=== PATIENT | male | born 1940 | race Caucasian/White ===

== ENCOUNTER 2016-05-05 14:18 | Inpatient (IN) | payer OTHER, MEDICARE ==
[~2016-05-05] VITALS: Ht 172.7 cm; Wt 99.8 kg
[~2016-05-05 14:18] MED LIST: FLOMAX(MONOGRA0.4 MG PO; PERCOCET 325 MG1 TA2 PO
--- NOTE | 2016-05-05 14:24 | NUR ---
PT TO ED C/O RIGHT ABD PAIN/RIGHT FLANK PAIN SINCE YESTERDAY. CALLED DR OLIVO AND WAS ADVISED TO COME TO ED. H/O KIDNEY STONES, PT STATES THIS FEELS THE SAME. 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 DENIES N/V/D. C/O HESITANCY WITH URINATING. FINISHED ABX FOR A UTI A FEW DAYS AGO.
--- NOTE | 2016-05-05 14:26 | NUR ---
PT WAS DRINKING ICED TEA, ADVISED TO REMAIN NPO AT THIS TIME.
--- NOTE | 2016-05-05 14:34 | ED GI/GU/ABDOMINAL COMPLAINT ---
History of Present Illness General Chief Complaint: Abdominal Pain/Flank Pain Stated Complaint: FLANK PAIN Source: patient Exam Limitations: no limitations Allergies Coded Allergies: No Known Allergies (05/24/15) Reconcile Medications Aspirin (Ecotrin*) 81 MG TABLET.DR 1 TAB PO DAILY HEART HEALTH (Reported) Atorvastatin Calcium 20 MG TABLET 0.5 TAB PO DAILY CHOLESTEROL (Reported) Esomeprazole Magnesium (Nexium) 20 MG CAPSULE.DR 1 CAP PO DAILY GI (Reported) Flaxseed Oil (Flax Oil) 1,000 MG CAPSULE 1 CAP PO DAILY SUPPLEMENT (Reported) Glimepiride 4 MG TABLET 1 TAB PO DAILY DM (Reported) Irbesartan 150 MG TABLET 0.5 TAB PO DAILY HEART (Reported) Metformin HCl 1,000 MG TABLET 1 TAB PO BID DM (Reported) Multivitamin (Daily Multiple Vitamin) 1 EACH TABLET 1 TAB PO DAILY SUPPLEMENT (Reported) [place]-3 Fatty Acids/Fish Oil (Fish Oil 1,000 MG Capsule) 340 MG-1,000 MG CAPSULE 1 CAP PO DAILY SUPPLEMENT (Reported) Triage Note: PT TO ED C/O RIGHT ABD PAIN/RIGHT FLANK PAIN SINCE YESTERDAY. CALLED DR OLIVO AND WAS ADVISED TO COME TO ED. H/O KIDNEY STONES, PT STATES THIS FEELS THE SAME. 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 DENIES N/V/D. C/O HESITANCY WITH URINATING. FINISHED ABX FOR A UTI A FEW DAYS AGO. Triage Nurses Notes Reviewed? yes HPI: This patient is a 75-year-old male with past medical history including diabetes, dyslipidemia, and hypertension who presented to the emergency department today for evaluation of left-sided abdominal pain. The patient reported that his pain began a couple days ago and gets up to an 8 or 9 out of 10. The pain is sharp and throbbing. The pain is nonradiating. No flank pain or groin pain. The patient finished a course of Macrobid a couple days ago for urinary tract infection. He was originally having burning with urination. He reported that he does still have intermittent burning with urination and urinary pressure, but reported that he feels like he has not been voiding as much as normal. The patient reported that he does not currently have any abdominal pain. He reported that this morning he was feeling nauseous, but did not vomit. The patient reported that he took Tums at that time which relieved his symptoms. The patient reported that he feels his heart is racing and he occasionally feels palpitations. He reported that he has always had occasional palpitations and recently had a stress test which was unremarkable. The patient denied any chest pain or difficulty breathing. He denied any numbness or tingling in his extremities, fevers, chills, visual changes, jaw pain, arm pain, urinary urgency , frequency, blood in the urine. The patient reported that he does have chronic lower back pain. He has never had any abdominal surgeries before. (JEANMARIE EVANS PA-C) Vital Signs & Intake/Output Vital Signs & Intake/Output Vital Signs Date Time Temp Pulse Resp B/P Pulse O2 O2 Flow FiO2 Ox Delivery Rate 05/07 0703 98.9 95 20 122/64 95 Room Air 05/06 2208 99.1 82 20 122/60 95 Room Air 05/06 1433 98.0 85 20 110/60 97 ED Intake and Output 05/07 0000 05/06 1200 Intake Total 920 540 Output Total 2049 Balance -1130 540 Intake, IV 340 Intake, Oral 920 200 Number 2 0 Bowel Movements Output, Urine 2049 Past History Travel History Traveled to [place] past 21 day No Medical History Any Pertinent Medical History? see below for history Neurological: NONE EENT: NONE Cardiovascular: hypertension, hyperlipidemia Respiratory: NONE Gastrointestinal: GERD Hepatic: NONE Renal: NONE Musculoskeletal: NONE Psychiatric: NONE Endocrine: diabetes Surgical History Surgical History: N Psychosocial History What is your primary language Kazakh Tobacco Use: Quit >30 days ago ETOH Use: denies use Illicit Drug Use: denies illicit drug use Family History Hx Contributory? No (JEANMARIE EVANS PA-C) Review of Systems Review of Systems Constitutional: Reports: no symptoms. EENTM: Reports: no symptoms. Respiratory: Reports: no symptoms. Cardiovascular: Reports: see HPI. GI: Reports: see HPI. Genitourinary: Reports: see HPI. Musculoskeletal: Reports: no symptoms. Skin: Reports: no symptoms. Neurological/Psychological: Reports: no symptoms. All Other Systems: Reviewed and Negative (JEANMARIE EVANS PA-C) Physical Exam Physical Exam Gastrointestinal: normal bowel sounds, soft, no organomegaly, tenderness to palpation in the left lower quadrant with no rebound or guarding. Nondistended. No McBurney's point tenderness. Negative Rovsing sign. Negative psoas sign. Negative Ascencio sign. No masses appreciated. Comments: Well-developed well-nourished person in no acute distress HEENT: Normal EENT exam, head normocephalic, moist mucous membranes Pupils equally round and reactive to light. Neck: Supple, no lymphadenopathy Back: Normal gait. Normal inspection. No CVA tenderness. No midline tenderness Cardiovascular: Regular rate and rhythm with no murmurs, rubs, or gallops. No JVD or carotid bruits Respiratory: Chest nontender. No respiratory distress. Breath sounds clear to auscultation bilaterally with no wheezes, rales, or rhonchi Extremity: Normal and equal pulses Neuro: Alert oriented x3, cranial nerves II through XII grossly intact. Skin: No appreciable rash on exposed skin, skin is warm and dry. Psych: Mood and affect is normal Core Measures ACS in differential dx? No Severe Sepsis Present: No Septic Shock Present: No (JEANMARIE EVANS PA-C) Progress Differential Diagnosis: AAA, AMI, appendicitis, biliary colic, bowel obstruction , colon cancer, cholecystitis, diverticulitis, gastritis, hepatitis, ischemic bowel, inflamm bowel dis, pancreatitis, prostatitis, peptic ulcer, PUD/GERD, perforated viscous, pyelonephritis, SBO, ureterolithiasis, urinary retention, urethritis, UTI/pyelo Initial ED EKG: normal axis, normal intervals, no ST T wave changes, sinus tachycardia, first-degree AV block, 109 bpm Comments: 05/05/2016 5:41:57 PM: Dr. Boone was at the patient's bedside a [id number] evaluation. This patient does have an obstructing left-sided kidney stone. We will page on-call urology. This patient was started on IV Rocephin for shaking chills and white blood cell count of 21.0 (JEANMARIE EVANS PA-C) Plan of Care: Orders Procedure Date/time Status CBC WITHOUT DIFFERENTIAL 05/07 599 Active BASIC ELECTROLYTES PLUS BUN&CR 05/07 06 Complete Anticipated Discharge 05/06 UNK Active Nursing Misc 05/06 UNK Active [id number] VIEW 05/05 UNK Active Current Medications Sig/Harini Start time Last Medication Dose Stop Time Status Admin Heparin Sodium 5,000 UNIT Q8 05/06 1440 AC (Porcine) Acetaminophen 650 MG Q6P PRN 05/05 2014 AC (Tylenol) Laboratory Tests 05/07/16 0655: Anion Gap 12, Estimated GFR 54 L, BUN/Creatinine Ratio 20.8, CBC w Diff Pending , WBC Pending, RBC Pending, Hgb Pending, Hct Pending, MCV Pending, MCH Pending, RDW Pending, Plt Count Pending, MPV Pending, PUBS MCHC Pending Departure Departure Disposition: STILL A PATIENT Condition: Stable Clinical Impression Primary Impression: Ureterolithiasis Secondary Impressions: Leukocytosis Qualifiers: Leukocytosis type: unspecified Qualified Code: D72.829 - Elevated white blood cell count, unspecified Referrals: CHELI WOODWARD MD (PCP/Family) Departure Forms: Customer Survey General Discharge Information Admission Note Spoke With: CATHY MENDOZA MD Documentation of Exam: Documentation of any treatments & extenuating circumstances including Concerns Regarding Discharge (functional status, medication knowledge or non-compliance, living conditions, etc.) that warrant an admission rather than observation: [ This patient is a 75-year-old male who presented to the emergency department today for evaluation of left abdominal pain. 0.5 cm ureterolithiasis with hydronephrosis. White blood cell count of 21.0. Positive esterase and nitrates with greater than 75 white blood cells on urinalysis. This patient will need a ureteral stent placed. Should be admitted for IV antibiotics, trend labs, follow-up blood cultures, follow-up urine cultures, and close monitoring.] (CRISTINA CORREA,JEANMARIE) PA/RN NEUROSURGICAL Co-Sign Statement Statement: ED Attending supervision documentation- [x] I saw and evaluated the patient. I have also reviewed all the pertinent lab results and diagnostic results. I agree with the findings and the plan of care as documented in the PA's/RN NEUROSURGICAL's documentation. [] I have reviewed the ED Record and agree with the PA's/RN NEUROSURGICAL's documentation. [] Additions or exceptions (if any) to the PAs/RN NEUROSURGICAL's note and plan are summarized below: [] (NEL VALLES,VITO Jones) [] I have reviewed the ED Record and agree with the PA's/RN NEUROSURGICAL's documentation. [] Additions or exceptions (if any) to the PAs/RN NEUROSURGICAL's note and plan are summarized below: [] (VITO BOONE MD)
--- NOTE | 2016-05-05 14:50 | NUR ---
CLAUDINE Gonzalez AT BEDSIDE
[2016-05-05] MEDS ORDERED: GLIMEPIRIDE4 M1 PO (15:16)
[2016-05-05] MEDS ORDERED: METFORMIN HCL1000 M1 PO (15:16)
[2016-05-05] MEDS ORDERED: IRBESARTAN150 M1 PO (15:16)
[2016-05-05] MEDS ORDERED: ATORVASTATIN CA20 M1 PO (15:16)
[2016-05-05] MEDS ORDERED: ASPIRIN EC81 M1 PO (15:17)
[2016-05-05] MEDS ORDERED: NEXIUM20 M1 PO (15:17)
[2016-05-05] MEDS ORDERED: DAILY MULTIPLE1 EACH PO (15:17)
--- NOTE | 2016-05-05 15:17 | NUR ---
PT BLOOD DRAWN AND SENT TO LAB GOLD LAV BLUE CHAVEZ PINK TUBES COLLECTED
[2016-05-05] MEDS ORDERED: FLAX OIL1000 M1 PO (15:18)
[2016-05-05] MEDS ORDERED: FISH OIL 1,0001 EACH PO (15:18)
[2016-05-05 15:36] LABS: ABSOLUTE BASOPHIL COUNT 0 /CUMM (0.0-0.2); ABSOLUTE EOSINOPHIL COUNT 0 /CUMM (0.0-0.7); ABSOLUTE GRANULOCYTE CT 19.7 /CUMM (1.4-6.5); ABSOLUTE LYMPH COUNT 0.6 /CUMM (1.2-3.4); ABSOLUTE MONOCYTE COUNT 0.7 /CUMM (0.10-0.60); BASOPHIL % 0 % (0.0-2.0); EOSINOPHIL % 0 % (0-5); GRANULOCYTE % 93.8 % (42.2-75.2); HEMATOCRIT 40.7 % (42-52); MEAN CORPUSCULAR HGB 26.5 PG (27.0-31.0); MEAN CORPUSCULAR HGB CONC 33.5 G/DL (33.0-37.0); MEAN CORPUSCULAR VOLUME 79.2 FL (80.0-94.0); MEAN PLATELET VOLUME 7.7 FL (7.4-10.4); PLATELET COUNT 296 /CUMM (130-400); RED BLOOD CELL CT 5.14 /CUMM (4.70-6.10)
--- NOTE | 2016-05-05 16:00 | NUR ---
URINE OBTAINED AND SENT. DARK YELLOW CLOUDY OUTPUT
--- NOTE | 2016-05-05 17:37 | CT SCAN REPORT ---
EXAMINATION: CT ANGIOGRAM OF THE CHEST WITH AND WITHOUT CONTRAST (CT PULMONARY ANGIOGRAM FOR PE) CT ABDOMEN AND PELVIS WITH CONTRAST CLINICAL INFORMATION: Tachycardia. Palpitations. Left lower quadrant and left upper quadrant pain. COMPARISON: Abdominal CT 05/24/2015. TECHNIQUE: Prior to contrast administration, noncontrast localization images were obtained. Subsequently, multidetector volumetric imaging was performed from the thoracic inlet to below the diaphragm following the administration of 95 mL Optiray 350 intravenous contrast. Subsequent acquisition of the abdomen and pelvis was then performed. No contrast reaction reported Sagittal, coronal, and MIP oblique sagittal reformatted images were obtained on the CT workstation, uploaded to PACS, and reviewed. Total exam dose-length product 1720 mGy-cm FINDINGS: QUALITY OF STUDY/CONTRAST BOLUS: Satisfactory. PULMONARY ARTERIES: No central or segmental pulmonary emboli. THORACIC AORTA: No aneurysm or dissection. LUNG: The central airways are patent. Minimal dependent atelectasis bilaterally. No dense consolidation. PLEURA: No pleural effusion or pneumothorax. MEDIASTINUM: The heart is normal in size. No pericardial effusion. Coronary artery calcifications noted. No mediastinal lymphadenopathy. No evidence of septal bowing or right heart strain. CHEST WALL/AXILLA: No axillary or internal mammary lymphadenopathy. LIVER, GALLBLADDER, AND BILIARY TREE: The liver is normal in size, shape, and attenuation. No focal hepatic lesion or biliary ductal dilatation is present. The gallbladder is unremarkable with no evidence of radiopaque gallstones, gallbladder wall thickening, or obvious pericholecystic inflammatory changes. PANCREAS: Unremarkable. SPLEEN: Unremarkable. ADRENAL GLANDS: Unremarkable. KIDNEYS AND URETERS: The kidneys are normal in size, shape, and attenuation. There is mild left hydroureteronephrosis. There is a 0.5 cm mid ureteral obstructing calculus, at the level of L5. There is prominent left perinephric stranding. Evaluation for additional calculi is limited, as the abdominal acquisition was delayed and the patient is excreting contrast. There is delayed excretion on the left, suggesting multiple additional calculi are present throughout the left kidney. Excretion is uniform on the right with partial filling of the ureter with contrast. There is a cluster of calculi at the lower pole of the left kidney measuring up to 0.4 cm. These are positioned 14 cm from the posterior axillary line. Additional smaller calculi are seen at the mid and upper poles. BLADDER: Mild circumferential wall thickening with no focal abnormality. GASTROINTESTINAL TRACT: The stomach and small bowel are unremarkable. No dilated loops of bowel or evidence of obstruction. There is colonic diverticulosis without diverticulitis. No wall thickening or inflammatory changes. No free air or free fluid. ABDOMINAL WALL: No significant hernia is appreciated. LYMPH NODES: Normal. VASCULAR: Mild atherosclerotic calcifications. PELVIC VISCERA: Enlarged prostate resulting in mass effect upon the bladder. The prostate measures 6 cm transverse. The seminal vesicles are unremarkable. OSSEOUS STRUCTURES: No acute or suspicious osseous abnormality. Multilevel degenerative changes throughout the spine with multilevel vacuum disc phenomenon. IMPRESSION: 1. Mild left hydroureteronephrosis with a 0.5 cm mid ureteral obstructing calculus. Additional left renal calculi noted. Limited evaluation for right renal calculi due to contrast excretion. 2. No pulmonary embolism or other acute intrathoracic abnormality. 3. Diverticulosis. 4. Prostatomegaly with circumferential bladder wall thickening suggestive of partial outlet obstruction. VTE: negative
--- NOTE | 2016-05-05 17:54 | NUR ---
PT RETURNED FROM CT. NOW HAS RIGORS. TEMP 100.8. DR. NEUMANN AND CLAUDINE MURRY AT BEDSIDE TO DISCUSS RESULTS AND POC. IV TYLENOL AND 2ND NS BOLUS INFUSING. FAMILY AT BEDSIDE FOR SUPPORT
--- NOTE | 2016-05-05 18:09 | NUR ---
RUPESH SETS BLOOD CULTURES COLLECTED AND SENT
--- NOTE | 2016-05-05 18:14 | NUR ---
CLEAR LIQUID DIET ORDERED
--- NOTE | 2016-05-05 19:27 | NUR ---
PT TO ROOM 229 BED 1
--- NOTE | 2016-05-05 19:58 | History & Physical ---
ROD VALLES,SON 05/05/161956: General Information and HPI MD Statement: I have seen and personally examined DAYA JOHNSON and documented this H&P. The patient is a 75 year old M who presented with a patient stated chief complaint of left abdominal pain. Source of Information: patient Exam Limitations: no limitations History of Present Illness: This is a 75-year-old very pleasant gentleman with a past medical history of diabetes, hyperlipidemia, hypertension, nephrolithiasis presents to [place] ED with complaints of left-sided abdominal pain. Patient reports onset of the pain to be about 2 days ago and has progressively worsened. Patient describes the pain as sharp and intermittently throbbing, rating it at 10 out of 10 when it's worse. Patient states that the pain is nonradiating. Pt endorses some pain relief with use of oxycodone. Associated symptoms include fever and chills, nausea, dysuria, decrease urinary frequency. He denies any hematuria or vomiting. Of note, patient was diagnosed with an UTI about 10 days ago and just completed a seven-day macrobid course 3 days ago. Patient also reports a previous history of right-sided abdominal pain which was related to nephrolithiasis and was scheduled for possible stent placement, however a follow-up pelvis scan showed that the stone was no longer there and had been passed. Pt denies any chest pain, palpitation, shortness of breath, or dizziness. Allergies/Medications Allergies: Coded Allergies: No Known Allergies (05/24/15) Home Med list Aspirin (Ecotrin*) 81 MG TABLET.DR 1 TAB PO DAILY HEART HEALTH (Reported) Atorvastatin Calcium 20 MG TABLET 0.5 TAB PO DAILY CHOLESTEROL (Reported) Esomeprazole Magnesium (Nexium) 20 MG CAPSULE.DR 1 CAP PO DAILY GI (Reported) Flaxseed Oil (Flax Oil) 1,000 MG CAPSULE 1 CAP PO DAILY SUPPLEMENT (Reported) Glimepiride 4 MG TABLET 1 TAB PO DAILY DM (Reported) Irbesartan 150 MG TABLET 0.5 TAB PO DAILY HEART (Reported) Metformin HCl 1,000 MG TABLET 1 TAB PO BID DM (Reported) Multivitamin (Daily Multiple Vitamin) 1 EACH TABLET 1 TAB PO DAILY SUPPLEMENT (Reported) [place]-3 Fatty Acids/Fish Oil (Fish Oil 1,000 MG Capsule) 340 MG-1,000 MG CAPSULE 1 CAP PO DAILY SUPPLEMENT (Reported) Past History Travel History Traveled to [place] past 21 day No Medical History Neurological: NONE EENT: NONE Cardiovascular: hypertension, hyperlipidemia Respiratory: NONE Gastrointestinal: GERD Hepatic: NONE Renal: NONE Musculoskeletal: NONE Psychiatric: NONE Endocrine: diabetes Surgical History Surgical History: N Past Family/Social History Psychosocial History ETOH Use: denies use Illicit Drug Use: denies illicit drug use Review of Systems Review of Systems Constitutional: Reports: see HPI. Exam & Diagnostic Data Last 24 Hrs of Vital Signs/I&O Vital Signs Date Time Temp Pulse Resp B/P Pulse O2 O2 Flow FiO2 Ox Delivery Rate 05/06 0353 98.5 85 20 132/68 98 Room Air 05/06 0100 97.8 74 18 118/60 97 Room Air 03/ 2136 98.7 109 20 110/60 93 Room Air / 2033 97.7 / 2026 97.7 103 18 101/55 95 Room Air / 1909 100.7 118 16 112/60 97 Room Air / 1751 100.8 / 1734 100.8 / 1633 97.6 93 18 131/64 95 Room Air 03/02 1530 Room Air 03/02 1421 97.2 118 20 153/73 96 Room Air Intake & Output 05/06 0800 03/ 0000 03/02 1600 Intake Total 540 2050 Output Total 750 Balance 540 1300 Intake, IV 340 2050 Intake, Oral 200 Number 0 Bowel Movements Output, Urine 750 Patient 99.79 kg 99.79 kg Weight Physical Exam General Appearance Alert, Oriented X3, Cooperative, No Acute Distress Skin No Significant Lesion HEENT Mucous Membr. moist/pink, left sclera conjuctivitis Neck Supple, No JVD, No thryomegaly, +2 Carotid Pulse wo Bruit Lymphatic Cervical nl Cardiovascular Regular Rate, Normal S1, Normal S2, No Murmurs Lungs Clear to Auscultation, Normal Air Movement Abdomen Normal Bowel Sounds, Soft, on deep palpation of the left abdominal flank area. No rebound or guarding noted. No CVA noted. Neurological Normal Speech, Normal Tone Assessment/Plan Assessment: Assessment and plan This is a 75-year-old gentleman with a previous history of nephrolithiasis, and a recent UTI treated with seven-day course of Macrobid, presents with for evaluation of left lower abdominal pain. Vital signs at admission are remarkable for fever, tachycardia and tachypnea. His physical examination was unremarkable for any abdominal pain or CVA tenderness, however it is noted that patient had received IV Tylenol and pain medication prior to our examination. Patient's labs were remarkable for leukocytosis, and UA was suggestive of a UTI. CT abdomen and pelvis showed left hydroureteronephrosis with a 5 mm mild ureteral obstructing calculus. Patient is being admitted for surgical management with a possible stent placement and medical management of his UTI with IV antibiotics. Assessment and plan #Sepsis of urological origin Patient meets sepsis criteria with elevated temperature of 100.8, tachycardia with a heart rate of 118, leukocytosis, and a urinalysis suggestive of a UTI. She had just recently completed an antibiotic seven-day course with Macrobid. Most likely treatment failure with antibiotic patient is presenting in a septic condition. Plan Admit to general medicine floor Will start ceftriaxone 1 g IV IV fluids Will follow-up with blood culture Will follow-up with urine cultures #Left lower abdominal pain This is in the setting of recent UTI and radiological finding of a 5 mm ureteral obstructing kidney stone. Plan IV hydration Continue pain management #Nephrolithiasis 5 mm calculus with hydroureteronephrosis noted at the left ureteral area with additional left renal calculi noted. As patient is symptomatic with left abdominal pain and is presenting in a septic condition, he warrants stone removal and possible stent placement. Plan Will keep patient nothing by mouth for now in anticipation of cystoscope with stent placement Pain management #History of diabetes NovoLog sliding scale and Levemir #History of hypertension Continue Ibesartan daily #History of hyperlipidemia Continue atorvastatin As Ranked By This Provider Problem List: 1. Ureterolithiasis 2. Sepsis Core Measures/Miscellaneous Acute Coronary Syndrome ACS Diagnosis: No Cerebrovascular Accident CVA/TIA Diagnosis: No Congestive Heart Failure CHF Diagnosis: No Venous Thromboembolism VTE Risk Factors: Age > 40 No [facility] VTE prophylaxis d/t: No contraindications No VTE Pharm Prophylaxis d/t: No contraindications VTE Diagnosis: No VTE Type: NONE VTE Confirmed by (Test): NONE Severe Sepsis Severe Sepsis Present: No Septic Shock Septic Shock Present: No Miscellaneous Documentation Attending Case Discussed With: CATHY MENDOZA MD Primary Care Physician: CHELI WOODWARD MD Patient sees these Specialists urologist Level of Patient Care: General Medicine CINDY CANO 05/05/162033: Resident Review Statement Resident Statement: examined this patient, discussed with technical intern, agreed with technical intern Other Findings: Patient is a 75-year-old gentleman with a past medical history significant for type 2 diabetes, dyslipidemia, hypertension, history of right-sided nephrolithiasis presented to the ED for the evaluation of left-sided abdominal pain. Patient reported that the pain started a couple of days ago getting worse for the last 1-2 days. Pain was intermittent, sharp in character, 9/10 in severity, aggravated with movement and alleviated by taking oxycodone. Pain was associated with with nausea and fever and chills and lightheadedness. Patient recently completed a course of Macrobid for 7 days for urinary tract infection. He reported that as soon as he finished the antibiotics course he started having again burning micturition with urgency. Patient denied any chest discomfort or trouble breathing . He always had occasional palpitations, recently had a stress test done that was unremarkable. Denies any bowel habit complaints. No changes in his appetite. Vitals on admission temperature 100.8, pulse 118, blood pressure 131/64 respiratory rate 18, saturating more than 92% on room air. General Appearance: Alert and oriented 3 , not in acute distress. Skin: Grossly normal HEENT: PEERLA Neck: Supple, No JVD Cardiovascular: Regular Rate, Normal S1, Normal S2, No Murmurs Lungs: Decreased respirations in the left lower lung bases Abdomen: Normal Bowel Sounds, left lower quadrant tenderness without any rebound. Neurological: Normal Speech, Strength at 5/5 X4 Ext, Cranial Nerves 3-12 NL, Reflexes 2+ Extremities: No Clubbing, No Cyanosis, No Edema Vascular: Normal Pulses . Pertinent labs on admission Leukocytosis 21.0 with left shift 93.8. Leukocytosis, sodium 134, BUN/ creatinine elevated 40/1.5, Urinalysis positive for leukocyte esterase and nitrite. CT abdomen and pelvis revealed: Mild left hydroureteronephrosis with a 0.5 cm mid ureteral obstructing calculus. Additional left renal calculi noted. Limited evaluation for right renal calculi due to contrast excretion. CTA chest to rule out any underlying PE Assessment and plan This is [id number] gentleman with a past medical history significant for type 2 diabetes, dyslipidemia, hypertension, history of right-sided nephrolithiasis presented to the ED for the evaluation of left-sided abdominal pain, CT abdomen and pelvis were consistent with mild left-sided ureterohydronephrosis with obstructive lesion left renal calculi. FIFI on labs and urinalysis showed positive urinary tract infection. 1.left-sided ureterohydronephrosis with sepsis(Worsening left-sided lower quadrant abdominal pain with fever or chills ): * We will admit the patient to general medical floor, awaiting surgery. * Urine analysis positive for leukocyte esterase and nitrate. We'll start the patient on IV ceftriaxone after sending blood cultures and urine culture. * Continue with gentle hydration. * Trend lactic acid levels * Watch for any hemodynamic instability. * Patient will be evaluated by Dr. Carmichael overnight for possible stent placement. 2. Acute kidney injury: * Elevated BUN and creatinine * Continue with gentle hydration * And avoid any nephrotoxic agents * Repeat Bep. 3. History of hypertension and hyperlipidemia * Continue home medications. 4. History of type 2 diabetes mellitus * Patient is currently nothing by mouth. * Continue with NPH and sliding scale * D5 half normal saline * Hold metformin and glyburide 5. Moderate to severe pain controlled with Dilaudid 6. DVT prophylaxis Alps 7.Patient is full code CATHY MENDOZA 05/06/16 0302: Attending MD Review Statement Attending Statement Attending MD Statement: examined this patient, discuss w/resident/PA/[employer], agreed w/resident/PA/[employer] RE[employer], discussed with family, reviewed EMR data (avail), reviewed images, amended to note Attending Assessment/Plan: Cc : Left flank pain PMH: Recurrent nephrolithiasis, DM, HTN Patient had urinary tract symptoms 7 days back, was treated with [facility] urgent care center. Later on followed up with urologist, who was planning for some procedure. But patient's urinary infection symptoms persisted once antibiotic was over and he noticed sudden left sided flank pain coming to abdomen, associated with nausea, dizziness, palpitations, fever and chills. He was feeling not so good so he came to ER. Vitals: T max 100.8, tachycardic, RR, BP, O2 saturation within acceptable range. On examination: Anxious, no acute distress, a O 3, neck supple, no lymphadenopathy, no pharyngeal congestion, mucosa dry, no JVD. CVS: S1-S2, RRR. RS: Clear to auscultate bilaterally. Abdomen: Obese, soft, NT, tender only with deep palpation on the left side of her abdomen, ND, no CVA tenderness. Bowel sounds normal. No pedal edema, peripheral pulses perfusion normal. No focal neurological deficit. Labs: WBC 21.0, hemoglobin 13, granulocytes 93%, bands 12, bicarbonate 20, creatinine 1.4, glucose 243, calcium 10.9, amylase 198, lipase 664 CTA chest, abdomen and pelvis CT with IV contrast: 1. Mild left hydroureteronephrosis with a 0.5 cm mid ureteral obstructing calculus. Additional left renal calculi noted. Limited evaluation for right renal calculi due to contrast excretion. 2. No pulmonary embolism or other acute intrathoracic abnormality. 3. Diverticulosis. 4. Prostatomegaly with circumferential bladder wall thickening suggestive of partial outlet obstruction. A and P #1 sepsis secondary to UTI with obstructing stone in hydronephrosis on left side. Urology has been consulted in ER, get urine culture, blood culture, aggressive hydration, trend lactic acid, continue ceftriaxone, adequate pain control. #2 Patient has mildly elevated calcium, repeat in the morning. ? Benefit from stone analysis. Patient is taking calcium supplementation which she need to be stopped. #3 elevated creatinine: Baseline not known. Previous creatinine was 1.8 which was then he had his previous renal stone. Continue hydration for now, repeat BMP tomorrow. #4 hold ACEI/ARB, hold metformin, glimepiride. Continue sliding scale insulin. Continue hydration. #5 BPH : Currently patient not on any medications, and not having any symptoms related to BPH but CT shows partial outlet obstruction #6 DVT prophylaxis: Alps
--- NOTE | 2016-05-05 20:21 | NUR ---
REPORT GIVEN TO VIDAL JOHNSON
[2016-05-05 21:36] VITALS: BP 110/60
--- NOTE | 2016-05-05 23:58 | NUR ---
PT ARRIVED TO FLOOR AT [facility]. 2044. A&O X 3 WITH TO BEDSIDE. NS RUNNING PER EMAR. ALPS APPLIED. NO C/O PAIN. BED LOW, LOCKED, CALL NEUMANN WITHIN REACH. PT CALLED TO OR AND LEFT FLOOR AT [facility]. 2214. REPORT GIVEN TO COFFEE ATTENDANT NURSE.
--- NOTE | 2016-05-06 00:05 | Cons- Urology ---
General Information and HPI Consulting Request Date of Consult: 05/05/16 Requested By: CATHY Figueroa MD Reason for Consult: L ureteral stone with obstruction and infected urine Source of Information: patient, family Exam Limitations: no limitations History of Present Illness: This patient has a hx of urinary stones and has had a couple of UTI's in the past. He presented to the ER today with L flank and L side abd pain. A CT scan showed a 5 mm stone in the L ureter at the level of L5 with mild upstream hydronephrosis. His U/A was c/w infection and his wbc count was 21 thousand. In the ER he had a low grade fever and an episode of shaking chills. He was given 1 gram of ceftriaxone. Allergies/Medications Allergies: Coded Allergies: No Known Allergies (05/24/15) Home Med List: Aspirin (Ecotrin*) 81 MG TABLET.DR 1 TAB PO DAILY HEART HEALTH (Reported) Atorvastatin Calcium 20 MG TABLET 0.5 TAB PO DAILY CHOLESTEROL (Reported) Esomeprazole Magnesium (Nexium) 20 MG CAPSULE.DR 1 CAP PO DAILY GI (Reported) Flaxseed Oil (Flax Oil) 1,000 MG CAPSULE 1 CAP PO DAILY SUPPLEMENT (Reported) Glimepiride 4 MG TABLET 1 TAB PO DAILY DM (Reported) Irbesartan 150 MG TABLET 0.5 TAB PO DAILY HEART (Reported) Metformin HCl 1,000 MG TABLET 1 TAB PO BID DM (Reported) Multivitamin (Daily Multiple Vitamin) 1 EACH TABLET 1 TAB PO DAILY SUPPLEMENT (Reported) [place]-3 Fatty Acids/Fish Oil (Fish Oil 1,000 MG Capsule) 340 MG-1,000 MG CAPSULE 1 CAP PO DAILY SUPPLEMENT (Reported) Current Medications: Current Medications Sig/Harini Start time Last Medication Dose Route Stop Time Status Admin Acetaminophen 1,000 MG Q8P PRN 05/05 204 AC N/A 1 UNIT IV Acetaminophen 650 MG Q6P PRN 05/05 2014 AC PO Acetaminophen 0 .STK-MED ONE 05/05 174 DC IV Acetaminophen 1,000 MG ONCE ONE 05/05 1745 DC 05/05 N/A 1 UNIT IV 05/05 1759 1751 Aspirin Buffered 81 MG DAILY 05/06 1000 AC PO Atorvastatin Calcium 10 MG 1700 05/06 1700 AC PO Ceftriaxone Sodium 1,000 MG DAILY 05/06 1000 AC IV Ceftriaxone Sodium 0 .STK-MED ONE 05/05 1747 DC .ROUTE Ceftriaxone Sodium 1,000 MG ONCE ONE 05/05 1745 DC / IV 05/05 1746 1805 Dextrose/Sodium 1,000 ML Q13H 05/05 2345 UNVr Chloride IV Hydromorphone HCl 0.5 MG Q4P PRN 05/05 2014 AC IV Insulin Human Regular 0 Q6 05/05 2359 AC SC Ketorolac 30 MG ONCE ONE 05/05 1615 DC 05/05 Tromethamine IV 05/05 1616 1607 Ketorolac 0 .STK-MED ONE 05/05 1607 DC Tromethamine .ROUTE Losartan Potassium 50 MG DAILY 05/06 1000 AC PO Morphine Sulfate 2 MG ONCE ONE 05/05 1845 DC IV 05/05 1846 Multivitamins 1 TAB DAILY 05/06 1000 AC Therapeutic PO Omeprazole 40 MG DAILY AC 05/06 0700 AC PO Oxycodone/ 1 TAB Q6 PRN 05/05 2014 DC Acetaminophen PO Sodium Chloride 1,000 ML Q20H / 2045 DC 05/05 IV 2113 Sodium Chloride 1,500 ML .Q3H 05/05 1930 DC 03/ IV 03/ 2229 2000 Sodium Chloride 1,000 ML BOLUS ONE 05/05 1745 DC 03/ IV / 1844 1751 Sodium Chloride 1,000 ML BOLUS ONE 05/05 1500 DC 03/ IV 03/ 1559 1530 Past History Medical History Neurological: NONE EENT: NONE Cardiovascular: hypertension, hyperlipidemia Respiratory: NONE Gastrointestinal: GERD Hepatic: NONE Renal: NONE Musculoskeletal: NONE Psychiatric: NONE Endocrine: diabetes Surgical History Pertinent Surgical History: none Psychosocial History Where Do You Live? Home Smoking Status: Former Smoker ETOH Use: denies use Illicit Drug Use: denies illicit drug use Exam & Diagnostic Data Vital Signs and I&O Vital Signs Date Time Temp Pulse Resp B/P Pulse O2 O2 Flow FiO2 Ox Delivery Rate 05/06 2135 98.7 109 20 110/60 93 Room Air 05/05 2032 97.7 05/05 2025 97.7 103 18 101/55 95 Room Air 05/05 1909 100.7 118 16 112/60 97 Room Air 05/05 1751 100.8 05/05 1734 100.8 05/05 1633 97.6 93 18 131/64 95 Room Air 05/05 1530 Room Air 05/05 1421 97.2 118 20 153/73 96 Room Air Intake & Output 05/06 0800 05/06 0000 05/05 1600 05/05 0800 05/05 0000 05/04 1600 Intake Total 2000 Output Total 550 Balance 1450 Intake, IV 2000 Output, Urine 550 Patient 220 lb 220 lb Weight No acute distress Back: mild L CVA tenderness Abd: soft, mild LUQ tenderness Genitalia: normal male LEANNA: enlarged, non nodular prostate Laboratory Tests 05/05 05/05 1555 1518 Coagulation D-Dimer Cancelled Urines Urine Color (YEL,AMB,STR) YEL Urine Clarity (CLEAR) HAZY H Urine pH (5.0 - 8.0) 6.0 Ur Specific Maiden (1.001 - 1.035) 1.020 Urine Protein (NEG,<30 MG/DL) 30 H Urine Ketones (NEG) TRACE H Urine Nitrite (NEG) POS H Urine Bilirubin (NEG) NEG Urine Urobilinogen (0.1 - 1.0 EU/dl) 0.2 Ur Leukocyte Esterase (NEG) LARGE H Ur Microscopic SEDIMENT EXAMINED Urine RBC (0 - 5 /HPF) 50-75 H Urine WBC (0 - 2 /HPF) > 75 H Ur Epithelial Cells (NONE,FEW) RARE Urine Bacteria (NEG/NONE) MOD H Urine Hemoglobin (NEG) LARGE H Urine Glucose (N MG/DL) NEG 05/05 1510 Chemistry Sodium (137 - 145 mmol/L) 134 L Potassium (3.5 - 5.1 mmol/L) 4.9 Chloride (98 - 107 mmol/L) 99 Carbon Dioxide (22 - 30 mmol/L) 20 L Anion Gap (5 - 16) 15 BUN (9 - 20 mg/dL) 40 H Creatinine (0.7 - 1.2 mg/dL) 1.5 H Estimated GFR (>60 ml/min) 46 L BUN/Creatinine Ratio (7 - 25 %) 26.7 H Glucose (65 - 99 mg/dL) 243 H Lactic Acid (0.7 - 2.1 mmol/L) 1.8 Calcium (8.4 - 10.2 mg/dL) 10.9 H Total Bilirubin (0.2 - 1.3 mg/dL) 0.9 Direct Bilirubin (< 0.4 mg/dL) 0.5 H AST (17 - 59 U/L) 20 ALT (21 - 72 U/L) 32 Alkaline Phosphatase (< 127 U/L) 75 Troponin I (<0.11 ng/ml) < 0.01 Total Protein (6.3 - 8.2 g/dL) 6.7 Albumin (3.5 - 5.0 g/dL) 4.2 Globulin (1.9 - 4.2 gm/dL) 2.5 Albumin/Globulin Ratio (1.1 - 2.2 %) 1.7 Amylase (30 - 110 U/L) 198 H Lipase (23 - 300 U/L) 664 H Coagulation D-Dimer (70 - 232 ng/ml) 382 H Hematology CBC w Diff MAN DIFF ORDERED WBC (4.8 - 10.8 /CUMM) 21.0 H RBC (4.70 - 6.10 /CUMM) 5.14 Hgb (14.0 - 18.0 G/DL) 13.6 L Hct (42 - 52 %) 40.7 L MCV (80.0 - 94.0 FL) 79.2 L MCH (27.0 - 31.0 PG) 26.5 L RDW (11.5 - 14.5 %) 14.0 Plt Count (130 - 400 /CUMM) 296 MPV (7.4 - 10.4 FL) 7.7 Gran % (42.2 - 75.2 %) 93.8 H Lymphocytes % (20.5 - 51.1 %) 3.1 L Monocytes % (1.7 - 9.3 %) 3.1 Eosinophils % (0 - 5 %) 0 Basophils % (0.0 - 2.0 %) 0 L Absolute Granulocytes (1.4 - 6.5 /CUMM) 19.7 H Segmented Neutrophils (42.2 - 75.2 %) 78 H Band Neutrophils (0.0 - 5.0 %) 12 H Absolute Lymphocytes (1.2 - 3.4 /CUMM) 0.6 L Lymphocytes (20.5 - 51.1 %) 5 L Monocytes (1.7 - 9.3 %) 5 Absolute Monocytes (0.10 - 0.60 /CUMM) 0.7 H Absolute Eosinophils (0.0 - 0.7 /CUMM) 0 Absolute Basophils (0.0 - 0.2 /CUMM) 0 Platelet Estimate (ADEQUATE) ADEQUATE Normochromic RBCs VERIFIED Microcytic Cells 1+ PUBS MCHC (33.0 - 37.0 G/DL) 33.5 Assessment/Plan Assessment/Plan Imp: 1. L ureteral stone with obstruction, infected urine, leukocytosis and episode of shaking chills in ER 2. DM Plan: 1. In view of obstructing L ureteral stone with infection and DM will proceed with emergent cystoscopy and insertion of L ureteral stent 2. Continue IV abx and adjust based on urine and blood culture results Consult Acknowledgment - Thank you for your consult request.
--- NOTE | 2016-05-06 00:16 | Operative Report ---
See Addendum Operative/Inv Procedure Report Surgery Date: 05/06/16 Name of Procedure: Cystoscopy and insertion of L double J ureteral stent Pre-Operative Diagnosis: L ureteral stone with obstruction and infection Post-Operative Diagnosis: same Estimated Blood Loss: scant Surgeon/Yard Loader Operator: CATHY Trevino MD Anesthesia: moderate sedation Drains: 26 cm, 6 fr L double J ureteral stent 16 fr cole Specimens: none Complications: none Condition: fair Operative Indication: Obstructing L ureteral stone with infection Operative/Procedure Note Note: The patient was taken to the OR and identified. He was placed on the OR table in the supine position and a time out executed appropriately with the patient awake. IV sedation was given. He was placed in the dorsal lithotomy position and prepped and draped in the usual manner for cystoscopy. A flouroscopy image was taken with a marker on the L side of the abdomen to confirm the correct side of the surgery as well as the correct orientation of the flouroscopy image. The 22 fr cystoscope sheath was placed in the bladder under direct vistion. The anterior urethral was normal. The prostatic urethra showed partial bladder outlet obstruction. Upon entering the bladder the L ureteral orifice was identified. An open ended stent was placed in the L ureter. It was advanced to the level of L5 but could not be advanced further. A sensor wire could also not be advanced. An angled tip glide wire was placed through the open ended catheter and with some difficulty was negotiated by the stone. The open ended catheter was then advanced up to the L kidney. The sensor wire was advanced through the open endedcatheter which was removed. Under visual and flouroscopic control a 26 cm, 6 fr L double J stent was placed over the wire which was removed. A short suture was left attached to the distal end of the stent. A cole was placed. Flouroscopy confirmed the proximal end of the stent coiled in the L upper pole calyx and the distal end coiled in the bladder. Findings: Obstructing stone in L ureter at L5 Discharge Disposition: Critical Care Unit
[2016-05-06 01:00] VITALS: BP 118/60
--- NOTE | 2016-05-06 01:50 | NUR ---
RECEIVED REPORT FROM RAÚL JOHNSON. PT UP TO FLOOR AT 0100 VIA STRETCHER. AMBULATED FROM STRETCHER TO BED INDEPENDENTLY. ALERT & ORIENTED X3, ON RA O2 SAT 97% VSS. BS 190. IV FLUIDS STARTED. LOW IN PLACE DRAINING SEROSANGIOUS FLUID. C/O PAIN 10/13 IV PAIN MEDS GIVEN. IV #20 TO LH FROM 05/05/16. SKIN INTACT, RIGHT EYE REDDNESS, PT STATES THIS IS HIS BASELINE AND HE WAS SEEING A DR PRIOR TO ADMISSION AND TAKING EYE DROPS BUT NO BURNING OR PAIN FROM EYE. MADE AWARE. WILL CONTINUE TO MONITOR.
--- NOTE | 2016-05-06 03:04 | Admission Certification ---
Admission Certification Certification Statement - As attending physician, I certify that at the time of - admission, based on clinical presentation, severity of - symptoms, need for further diagnostic testing and - therapeutic interventions, and risk of adverse outcomes - without in-hospital treatment, in my clinical assessment, - this patient requires an acute hospital stay for a minimum - of two nights or longer. I have also considered psychsocial - factors such as support system, advanced age, financial - issues, cognitive issues, and failed out-patient treatments, - past re-admission history, safety of patient, and lack of - compliance as applicable. Specific rationale supporting this admission is: Hydronephrosis, suspected pyelonephritis, sepsis
[2016-05-06 03:53] VITALS: BP 132/68
--- NOTE | 2016-05-06 06:05 | PN- Housestaff ---
CASTILLO VALLES,[facility] 05/06/16 0604: Subjective Follow-up For: Nephrolithaiss Sepsis Subjective: Patient was seen and examined this morning. Resting comfortably in bed. Patient reports no active issues overnight. States that he feels much better. Patient states that he is hungry. Patient states that cole continues to drain. Dysuria when patient attempts to void himself. Patient does report abdominal distention and states that he's not had a bowel movement in a few days. He has begun to feel distended. Patient denies any fever, chills, nausea, vomiting. Patient denies any pain and is currently comfortable. Review of Systems Constitutional: Reports: see HPI. Objective Last 24 Hrs of Vital Signs/I&O Vital Signs Date Time Temp Pulse Resp B/P Pulse O2 O2 Flow FiO2 Ox Delivery Rate 05/06 0754 112/64 05/06 0728 98.4 89 20 112/64 95 Room Air 05/06 0353 98.5 85 20 132/68 98 Room Air 05/06 0100 97.8 74 18 118/60 97 Room Air 03/ 2136 98.7 109 20 110/60 93 Room Air 03/ 2033 97.7 03/ 2026 97.7 103 18 101/55 95 Room Air 03/ 1909 100.7 118 16 112/60 97 Room Air 03/ 1751 100.8 / 1734 100.8 / 1633 97.6 93 18 131/64 95 Room Air 03/02 1530 Room Air 03/02 1421 97.2 118 20 153/73 96 Room Air Intake & Output 05/06 1600 05/06 0800 05/06 0000 Intake Total 540 2050 Output Total 750 Balance 540 1300 Intake, IV 340 2050 Intake, Oral 200 Number 0 Bowel Movements Output, Urine 750 Patient 99.79 kg Weight Physical Exam General Appearance: Alert, Oriented X3, Cooperative Cardiovascular: Normal S1, Normal S2, No Murmurs Lungs: Clear to Auscultation Abdomen: Normal Bowel Sounds, Soft, No Tenderness Neurological: Normal Speech Extremities: No Clubbing, No Cyanosis, No Edema Vascular: Normal Pulses Other Physical Findings: Urine output from Cole Appears Marie. No evidence of any clots donal hematuria. Current Medications: Current Medications Sig/Harini Start time Last Medication Dose Route Stop Time Status Admin Acetaminophen 1,000 MG Q8P PRN 05/05 2045 AC N/A 1 UNIT IV Acetaminophen 650 MG Q6P PRN 05/05 2014 AC PO Acetaminophen 0 .STK-MED ONE 05/05 1747 DC IV Acetaminophen 1,000 MG ONCE ONE 05/05 1745 DC 05/05 N/A 1 UNIT IV 05/05 1759 1751 Aspirin Buffered 81 MG DAILY 05/06 1000 AC 05/06 PO 0754 Atorvastatin Calcium 10 MG 1700 05/06 1700 AC PO Ceftriaxone Sodium 1,000 MG DAILY 05/06 1000 AC IV Ceftriaxone Sodium 0 .STK-MED ONE 05/05 1747 DC .ROUTE Ceftriaxone Sodium 1,000 MG ONCE ONE 05/05 1745 DC 05/05 IV 05/05 1746 1805 Dextrose/Sodium 1,000 ML Q13H 05/05 2345 DC 05/06 Chloride IV 0115 Fentanyl Citrate 250 MCG .STK-MED ONE 05/05 2136 DC IM 05/05 2137 Hydromorphone HCl 0.5 MG Q4P PRN 05/05 2014 AC 05/06 IV 0120 Insulin Aspart 0 TIDAC 05/06 0800 AC 05/06 SC 0755 Insulin Human Regular 0 Q6 05/05 2359 DC SC Ketorolac 30 MG ONCE ONE 05/05 1615 DC 05/05 Tromethamine IV 05/05 1616 1607 Ketorolac 0 .STK-MED ONE 05/05 1607 DC Tromethamine .ROUTE Losartan Potassium 50 MG DAILY 05/06 1000 AC 05/06 PO 0754 Midazolam HCl 2 MG .STK-MED ONE 05/05 2136 DC IM 05/05 2137 Morphine Sulfate 2 MG ONCE ONE 05/05 1845 DC IV 05/05 1846 Multivitamins 1 TAB DAILY 05/06 1000 AC 05/06 Therapeutic PO 0753 Omeprazole 40 MG DAILY AC 05/06 0700 AC 05/06 PO 0542 Oxycodone/ 1 TAB Q6 PRN 05/05 2014 DC Acetaminophen PO Polyethylene Glycol 17 GM DAILY PRN 05/06 0815 AC PO Sodium Chloride 1,000 ML ONCE ONE 05/06 0230 AC 05/06 IV 05/06 1549 0242 Sodium Chloride 1,000 ML Q20H 05/05 2045 DC 05/05 IV 2113 Sodium Chloride 1,500 ML .Q3H 05/05 1930 DC 05/05 IV 05/05 2229 2000 Sodium Chloride 1,000 ML BOLUS ONE 05/05 1745 DC 05/05 IV 05/05 1844 1751 Sodium Chloride 1,000 ML BOLUS ONE 05/05 1500 DC 05/05 IV 05/05 1559 1530 Last 24 Hrs of Lab/Osvaldo Results Last 24 Hrs of Labs/Mics: Laboratory Tests 05/06/16 0736: Anion Gap 12, Estimated GFR 42 L, BUN/Creatinine Ratio 21.9, CBC w Diff Pending , WBC Pending, RBC Pending, Hgb Pending, Hct Pending, MCV Pending, MCH Pending, RDW Pending, Plt Count Pending, MPV Pending, Gran % Pending, Lymphocytes % Pending, Monocytes % Pending, Eosinophils % Pending, Basophils % Pending, Absolute Granulocytes Pending, Absolute Lymphocytes Pending, Absolute Monocytes Pending, Absolute Eosinophils Pending, Absolute Basophils Pending, PUBS MCHC Pending 05/06/16 0215: Lactic Acid 2.1 05/05/16 2359: Lactic Acid Cancelled 05/05/16 1555: Urine Color YEL, Urine Clarity HAZY H, Urine pH 6.0, Ur Specific [place] 1.020, Urine Protein 30 H, Urine Ketones TRACE H, Urine Nitrite POS H, Urine Bilirubin NEG, Urine Urobilinogen 0.2, Ur Leukocyte Esterase LARGE H, Ur Microscopic SEDIMENT EXAMINED, Urine RBC 50-75 H, Urine WBC > 75 H, Ur Epithelial Cells RARE, Urine Bacteria MOD H, Urine Hemoglobin LARGE H, Urine Glucose NEG 05/05/16 1518: D-Dimer Cancelled 05/05/16 1510: Anion Gap 15, Estimated GFR 46 L, BUN/Creatinine Ratio 26.7 H, Glucose 243 H, Lactic Acid 1.8, Calcium 10.9 H, Total Bilirubin 0.9, Direct Bilirubin 0.5 H, AST 20, ALT 32, Alkaline Phosphatase 75, Troponin I < 0.01, Total Protein 6.7, Albumin 4.2, Globulin 2.5, Albumin/Globulin Ratio 1.7, Amylase 198 H, Lipase 664 H, D-Dimer 382 H, CBC w Diff MAN DIFF ORDERED, RBC 5.14, MCV 79.2 L, MCH 26.5 L, RDW 14.0, MPV 7.7, Gran % 93.8 H, Lymphocytes % 3.1 L, Monocytes % 3.1, Eosinophils % 0, Basophils % 0 L, Absolute Granulocytes 19.7 H, Segmented Neutrophils 78 H, Band Neutrophils 12 H, Absolute Lymphocytes 0.6 L, Lymphocytes 5 L, Monocytes 5, Absolute Monocytes 0.7 H, Absolute Eosinophils 0 , Absolute Basophils 0, Platelet Estimate ADEQUATE, Normochromic RBCs VERIFIED, Microcytic Cells 1+, PUBS MCHC 33.5 Microbiology 05/05 1805 BLOOD: Blood Culture - RES GRAM NEGATIVE RODS 05/05 1800 BLOOD: Blood Culture - RES GRAM NEGATIVE RODS 05/05 1555 URINE ROUT: Urine Culture - RECD Assessment/Plan Assessment: This is a 75-year-old gentleman with past medical history of recurrent stones who presented to the emergency department on 05/05/2016 complaining of left-sided flank pain. At the time of admission the patient was taken for a placement of a ureteral stent owing to left hydroureteronephrosis. CT abdomen and pelvis with IV contrast showed evidence of a 0.5 cm midureteral stone. Following stent placement the patient received symptomatic relief. #Sepsis of urological origin. At time of admission patient did meet sepsis criteria. Patient blood culture was positive for: Gram - Rods, this is likely due to spillage. Initial lactic acid trended 1.8-->2.1 The patient is currently being covered with broad-spectrum antibiotics ceftriaxone and we will tailor antibiotics based on sensitivities as they are generated. Recommendations from urology state that if patient is afebrile we can DC the Cole and monitor for adequate urination. Subsequently patient might be stable for discharge on oral antibiotics with a follow-up in the office next week for laser lithotripsy of ureteral stone. If patient spikes fever consider repeat imaging and may consider ESWL while patient is admitted. Patient has been encouraged to think about stone analysis given the fact that he has a recurrent issue with stones. Patient will likely benefit from diet modifications and lifestyle changes. White count was elevated at time of admission, 21.0 25.0 Repeat CBC in a.m. #Elevated creatinine Patient's creatinine on admission was 1.5. Likely due to dehydration. Continue to encourage by mouth intake. We will repeat BEP in a.m. #History of diabetes Patient is currently on insulin sliding scale. Sugars are well controlled: 161, 190, 184, 229 He initially received aggressive fluid hydration with IV fluids and has been encouraged to drink by mouth intake now that he is tolerating a diet. #DVT prophylaxis Patient was initially was on a ALPS we shall begin the patient on heparin subcutaneous. Monitor for HIT. Problem List: 1. Sepsis 2. Leukocytosis 3. Ureterolithiasis 4. History of renal calculi 5. Bilateral shoulder region arthritis 6. Renal cyst Pain Ratin Pain Location: No Pain Reported Pain Goal: Remain pain free Pain Plan: Dilaudid And Tylenol Tomorrow's Labs & Rationales: CBC: Monitoring white cell count in the setting of active infection versus sepsis. BEP: Monitor potassium level in the setting of hyperkalemia PAN VALLES,BAM 05/06/16 1158: Attending MD Review Statement Attending Statement Attending MD Statement: examined this patient, discuss w/resident/PA/WASTEWATER PROJECT ENGINEER, agreed w/resident/PA/WASTEWATER PROJECT ENGINEER, discussed with family, reviewed EMR data (avail), discussed with nursing, discussed with case mgmt, reviewed images, amended to note Attending Assessment/Plan: Patient seen and examined, feeling overall much better. Denies any further left flank pain. Did complain of some burning on urination. Vital Signs Date Time Temp Pulse Resp B/P Pulse O2 O2 Flow FiO2 Ox Delivery Rate 05/06 0754 112/64 05/06 0728 98.4 89 20 112/64 95 Room Air 05/06 0353 98.5 85 20 132/68 98 Room Air 05/06 0100 97.8 74 18 118/60 97 Room Air 05/05 2136 98.7 109 20 110/60 93 Room Air 05/05 2033 97.7 05/05 2026 97.7 103 18 101/55 95 Room Air 05/05 1909 100.7 118 16 112/60 97 Room Air / 1751 100.8 / 1734 100.8 05/05 1633 97.6 93 18 131/64 95 Room Air 05/05 1530 Room Air 03/ 1421 97.2 118 20 153/73 96 Room Air on exam; aox3, nad. cv; s1,s2, rrr. resp; clear. abd; soft, nt, bs+ no cva tenderness. ext; no edema. Laboratory Tests 05/06 05/06 05/05 0736 0215 2359 Chemistry Sodium (137 - 145 mmol/L) 135 L Potassium (3.5 - 5.1 mmol/L) 5.3 H Chloride (98 - 107 mmol/L) 107 Carbon Dioxide (22 - 30 mmol/L) 17 L Anion Gap (5 - 16) 12 BUN (9 - 20 mg/dL) 35 H Creatinine (0.7 - 1.2 mg/dL) 1.6 H Estimated GFR (>60 ml/min) 42 L BUN/Creatinine Ratio (7 - 25 %) 21.9 Lactic Acid (0.7 - 2.1 mmol/L) 2.1 Cancelled Hematology CBC w Diff MAN DIFF ORDERED WBC (4.8 - 10.8 /CUMM) 25.0 H RBC (4.70 - 6.10 /CUMM) 4.42 L Hgb (14.0 - 18.0 G/DL) 12.0 L Hct (42 - 52 %) 35.3 L MCV (80.0 - 94.0 FL) 79.8 L MCH (27.0 - 31.0 PG) 27.1 RDW (11.5 - 14.5 %) 14.4 Plt Count (130 - 400 /CUMM) 235 MPV (7.4 - 10.4 FL) 8.4 Gran % (42.2 - 75.2 %) 94.2 H Lymphocytes % (20.5 - 51.1 %) 3.1 L Monocytes % (1.7 - 9.3 %) 2.5 Eosinophils % (0 - 5 %) 0.1 Basophils % (0.0 - 2.0 %) 0.1 Absolute Granulocytes (1.4 - 6.5 /CUMM) 23.5 H Segmented Neutrophils (42.2 - 75.2 %) 76 H Band Neutrophils (0.0 - 5.0 %) 19 H Absolute Lymphocytes (1.2 - 3.4 /CUMM) 0.8 L Lymphocytes (20.5 - 51.1 %) 3 L Monocytes (1.7 - 9.3 %) 1 L Absolute Monocytes (0.10 - 0.60 /CUMM) 0.6 Absolute Eosinophils (0.0 - 0.7 /CUMM) 0 Basophils (0.0 - 2.0 %) 1 Absolute Basophils (0.0 - 0.2 /CUMM) 0 Platelet Estimate (ADEQUATE) ADEQUATE Normocytic RBCs VERIFIED Normochromic RBCs VERIFIED PUBS MCHC (33.0 - 37.0 G/DL) 34.0 05/05 05/05 1555 1518 Coagulation D-Dimer Cancelled Urines Urine Color (YEL,AMB,STR) YEL Urine Clarity (CLEAR) HAZY H Urine pH (5.0 - 8.0) 6.0 Ur Specific [place] (1.001 - 1.035) 1.020 Urine Protein (NEG,<30 MG/DL) 30 H Urine Ketones (NEG) TRACE H Urine Nitrite (NEG) POS H Urine Bilirubin (NEG) NEG Urine Urobilinogen (0.1 - 1.0 EU/dl) 0.2 Ur Leukocyte Esterase (NEG) LARGE H Ur Microscopic SEDIMENT EXAMINED Urine RBC (0 - 5 /HPF) 50-75 H Urine WBC (0 - 2 /HPF) > 75 H Ur Epithelial Cells (NONE,FEW) RARE Urine Bacteria (NEG/NONE) MOD H Urine Hemoglobin (NEG) LARGE H Urine Glucose (N MG/DL) NEG 05/05 1510 Chemistry Sodium (137 - 145 mmol/L) 134 L Potassium (3.5 - 5.1 mmol/L) 4.9 Chloride (98 - 107 mmol/L) 99 Carbon Dioxide (22 - 30 mmol/L) 20 L Anion Gap (5 - 16) 15 BUN (9 - 20 mg/dL) 40 H Creatinine (0.7 - 1.2 mg/dL) 1.5 H Estimated GFR (>60 ml/min) 46 L BUN/Creatinine Ratio (7 - 25 %) 26.7 H Glucose (65 - 99 mg/dL) 243 H Lactic Acid (0.7 - 2.1 mmol/L) 1.8 Calcium (8.4 - 10.2 mg/dL) 10.9 H Total Bilirubin (0.2 - 1.3 mg/dL) 0.9 Direct Bilirubin (< 0.4 mg/dL) 0.5 H AST (17 - 59 U/L) 20 ALT (21 - 72 U/L) 32 Alkaline Phosphatase (< 127 U/L) 75 Troponin I (<0.11 ng/ml) < 0.01 Total Protein (6.3 - 8.2 g/dL) 6.7 Albumin (3.5 - 5.0 g/dL) 4.2 Globulin (1.9 - 4.2 gm/dL) 2.5 Albumin/Globulin Ratio (1.1 - 2.2 %) 1.7 Amylase (30 - 110 U/L) 198 H Lipase (23 - 300 U/L) 664 H Coagulation D-Dimer (70 - 232 ng/ml) 382 H Hematology CBC w Diff MAN DIFF ORDERED WBC (4.8 - 10.8 /CUMM) 21.0 H RBC (4.70 - 6.10 /CUMM) 5.14 Hgb (14.0 - 18.0 G/DL) 13.6 L Hct (42 - 52 %) 40.7 L MCV (80.0 - 94.0 FL) 79.2 L MCH (27.0 - 31.0 PG) 26.5 L RDW (11.5 - 14.5 %) 14.0 Plt Count (130 - 400 /CUMM) 296 MPV (7.4 - 10.4 FL) 7.7 Gran % (42.2 - 75.2 %) 93.8 H Lymphocytes % (20.5 - 51.1 %) 3.1 L Monocytes % (1.7 - 9.3 %) 3.1 Eosinophils % (0 - 5 %) 0 Basophils % (0.0 - 2.0 %) 0 L Absolute Granulocytes (1.4 - 6.5 /CUMM) 19.7 H Segmented Neutrophils (42.2 - 75.2 %) 78 H Band Neutrophils (0.0 - 5.0 %) 12 H Absolute Lymphocytes (1.2 - 3.4 /CUMM) 0.6 L Lymphocytes (20.5 - 51.1 %) 5 L Monocytes (1.7 - 9.3 %) 5 Absolute Monocytes (0.10 - 0.60 /CUMM) 0.7 H Absolute Eosinophils (0.0 - 0.7 /CUMM) 0 Absolute Basophils (0.0 - 0.2 /CUMM) 0 Platelet Estimate (ADEQUATE) ADEQUATE Normochromic RBCs VERIFIED Microcytic Cells 1+ PUBS MCHC (33.0 - 37.0 G/DL) 33.5 A/P; 75 y/o M with pmh sig for diabetes, hyperlipidemia, hypertension, CKD stage III, nephrolithiasis admitted with sepsis secondary to UTI as well as left ureteral obstructing stone. Patient is status post ureteral stent placement. He is also bacteremic with gram-negative rods. Urine culture also growing gram- negative rods. Will continue current antibiotics and follow-up on the cultures. Will likely stop IV fluids after this bag is done. Pain management adequate. Avoid NSAIDS secondary to chronic kidney disease. Please add heparin subcutaneous for DVT prophylaxis. Likely discharge in the next 1 or 2 days if stable. Encourage ambulation.
[2016-05-06 07:28] VITALS: BP 112/64
[2016-05-06 08:29] LABS: ABSOLUTE BASOPHIL COUNT 0 /CUMM (0.0-0.2); ABSOLUTE EOSINOPHIL COUNT 0 /CUMM (0.0-0.7); ABSOLUTE GRANULOCYTE CT 23.5 /CUMM (1.4-6.5); ABSOLUTE LYMPH COUNT 0.8 /CUMM (1.2-3.4)
[2016-05-06 09:00] LABS: ABSOLUTE MONOCYTE COUNT 0.6 /CUMM (0.10-0.60); BASOPHIL % 0.1 % (0.0-2.0); EOSINOPHIL % 0.1 % (0-5); GRANULOCYTE % 94.2 % (42.2-75.2); MEAN CORPUSCULAR HGB 27.1 PG (27.0-31.0); MEAN CORPUSCULAR VOLUME 79.8 FL (80.0-94.0); MEAN PLATELET VOLUME 8.4 FL (7.4-10.4); PLATELET COUNT 235 /CUMM (130-400); RBC DISTRIBUTION WIDTH 14.4 % (11.5-14.5); RED BLOOD CELL CT 4.42 /CUMM (4.70-6.10)
[2016-05-06 09:04] LABS: HEMATOCRIT 35.3 % (42-52)
--- NOTE | 2016-05-06 12:59 | PN- Urology ---
Surgical Brief Attending Note Brief Attending Note: Above noted May remove cole Monday AM and if voiding well and afebrile discharge on po abx. Office f/u. Will likely nees L ureteroscopy and laser litho of L ureteral stone in future.
--- NOTE | 2016-05-06 13:25 | Patient Discharge Instructions ---
Discharge Instructions General Discharge Information You were seen/treated for: Sepsis due to a urinary tract infection, likely as a result of Ureteral Stone. You had these procedures: Cystoscopy and insertion of L double J ureteral stent Watch for these problems: Fever, nausea, vomiting, chills, weakness, increased generalized edema. Palpitations. Chest pain. Shortness of breath. If you have any adverse reactions from any of the medications prescribed please inform your primary care physician and you may be required to come back to the emergency department. Thank you for allowing us to be part of your care. Special Instructions: Please follow-up with your primary care physician on 05/11/2016. This is for a post hospital discharge follow-up. Please follow up with the office of Dr Carmichael next week 05/12/2016. You will likely need a L Ureteroscopy and laser Lithotripsy of Left ureteral stone in future Diet Continue normal diet: No Recommended Diet: Heart Healthy. Once we have reached a conclusion of the type of stones you have, you may benefit from a restriction in certain foods. Activity Full Activity/No Limits: No Activity Self Limited: Yes (As Tolerated) Acute Coronary Syndrome Inclusion Criteria At DC or during hospital stay patient has or had the following: ACS DIAGNOSIS No Discharge Core Measures Meds if any: Prescribed or Continued at Discharge Meds if any: NOT Prescribed or Continued at Discharge Congestive Heart Failure Inclusion Criteria At DC or during hospital stay patient has or had the following: CHF DIAGNOSIS No Discharge Core Measures Meds if any: Prescribed or Continued at Discharge Meds if any: NOT Prescribed or Continued at Discharge Cerebrovascular accident Inclusion Criteria At DC or during hospital stay patient has or had the following: CVA/TIA Diagnosis No Discharge Core Measures Meds if any: Prescribed or Continued at Discharge Meds if any: NOT Prescribed or Continued at Discharge Venous thromboembolism Inclusion Criteria VTE Diagnosis No VTE Type NONE VTE Confirmed by (Test) NONE Discharge Core Measures - Per Current guidelines, there needs to be overlap - treatment for the first 5 days of Warfarin therapy. - If discharged on Warfarin prior to 5 days of - overlap therapy, the patient will need to be - assessed for post discharge needs including - *Post discharge parental anticoagulation - *Warfarin and/or parental anticoagulation education - *Follow up date to check INR post discharge At least 5 days overlap therapy as Inpatient No Meds if any: Prescribed or Continued at Discharge Note: Overlap Therapy is Warfarin and Anticoagulant Meds if any: NOT Prescribed or Continued at Discharge
[2016-05-06 14:33] VITALS: BP 110/60
[2016-05-06 22:08] VITALS: BP 122/60
[2016-05-07 07:03] VITALS: BP 122/64
--- NOTE | 2016-05-07 08:03 | PN- Housestaff ---
NICOLETTE VALLES,TEZ 05/07/16 0802: Subjective Follow-up For: Sepsis of urological origin Nephrolithiasis Subjective: I saw and examined the patient today morning. He reports significant burning and pain in the urethral region rating 10/10, spasmodic, intermittent. Denies any fever, urethral discharge, chills, nausea, vomiting. Review of Systems Constitutional: Reports: see HPI. EENTM: Reports: see HPI. Genitourinary: Reports: dysuria, frequency, hesitation, urgency. Musculoskeletal: Reports: see HPI. Comments: ROS negative except above. Objective Last 24 Hrs of Vital Signs/I&O Vital Signs Date Time Temp Pulse Resp B/P Pulse O2 O2 Flow FiO2 Ox Delivery Rate 05/07 0703 98.9 95 20 122/64 95 Room Air 05/06 2208 99.1 82 20 122/60 95 Room Air 05/06 1433 98.0 85 20 110/60 97 Intake & Output 05/07 1600 05/07 0800 05/07 0000 Intake Total 450 120 Output Total 1300 1450 Balance -850 -1330 Intake, Oral 450 120 Output, Urine 1300 1450 Physical Exam General Appearance: Alert, Oriented X3, Cooperative, No Acute Distress Skin: No Rashes, No Breakdown HEENT: Atraumatic, PERRLA, EOMI Neck: Supple Cardiovascular: Regular Rate, Normal S1, Normal S2, No Murmurs Lungs: Clear to Auscultation, Normal Air Movement Abdomen: Normal Bowel Sounds, Soft, No Tenderness, no CVA tenderness Neurological: Normal Speech, Strength at 5/5 X4 Ext, Normal Tone Extremities: No Clubbing, No Cyanosis, No Edema Vascular: Normal Pulses, Pulses Symmetrical Current Medications: Current Medications Sig/Harini Start time Last Medication Dose Route Stop Time Status Admin Acetaminophen 1,000 MG .STK-MED ONE 05/06 1630 DC IV 05/06 1631 Acetaminophen 1,000 MG Q8P PRN 05/05 2044 AC 05/06 N/A 1 UNIT IV 164 Acetaminophen 650 MG Q6P PRN 05/05 2015 AC PO Aspirin Buffered 81 MG DAILY 05/06 1000 AC 05/06 PO 0754 Atorvastatin Calcium 10 MG 1700 05/06 1700 DC PO Atorvastatin Calcium 10 MG 1700 05/06 1700 AC 05/06 PO 204 Ceftriaxone Sodium 1,000 MG 1800 05/06 1800 AC 05/06 IV 1729 Ceftriaxone Sodium 1,000 MG DAILY 05/06 1000 DC IV Heparin Sodium 5,000 UNIT Q8 05/06 1440 AC (Porcine) SC Hydromorphone HCl 0.5 MG Q4P PRN 05/05 2015 AC 05/06 IV 0740 Insulin Aspart 0 TIDAC 05/06 0800 AC 05/06 SC 1729 Losartan Potassium 50 MG DAILY 05/06 1000 AC 05/06 PO 0754 Melatonin 5 MG AT BEDTIME PRN 05/06 2030 AC 05/06 PO 2044 Multivitamins 1 TAB DAILY 05/06 1000 AC 05/06 Therapeutic PO 0753 Omeprazole 40 MG DAILY AC 05/06 0700 AC 05/07 PO 0549 Patient Medication 1 ED .STK-MED ONE 05/06 1350 DC Teaching ED 05/06 1351 Polyethylene Glycol 17 GM DAILY PRN 05/06 0815 AC 05/07 PO 0246 Sodium Chloride 1,000 ML ONCE ONE 05/06 0230 DC 05/06 IV 05/06 1549 0242 Last 24 Hrs of Lab/Osvaldo Results Last 24 Hrs of Labs/Mics: Laboratory Tests 05/07/16 0655: Anion Gap 12, Estimated GFR 54 L, BUN/Creatinine Ratio 20.8, CBC w Diff Pending , WBC Pending, RBC Pending, Hgb Pending, Hct Pending, MCV Pending, MCH Pending, RDW Pending, Plt Count Pending, MPV Pending, PUBS MCHC Pending Assessment/Plan Assessment: This is a 75-year-old gentleman with past medical history of recurrent stones who presented to the emergency department on 05/05/2016 complaining of left-sided flank pain. At the time of admission the patient was taken for a placement of a ureteral stent owing to left hydroureteronephrosis. CT abdomen and pelvis with IV contrast showed evidence of a 0.5 cm midureteral stone. Following stent placement the patient received symptomatic relief. Sepsis of urological origin. * At time of admission patient did meet sepsis criteria. * Patient blood culture was positive for: Gram - Rods * Urine cultures grew - Citrobacter Koseri * Initial lactic acid trended 1.8-->2.1 * The patient is currently being covered with broad-spectrum antibiotics ceftriaxone and we will tailor antibiotics based on sensitivities as they are generated. * Discontinued Cole today, if remains stable for 24hr with improved white count - will start on oral antibiotics & ready for discharge * Intially incontinent to urine after cole discontinuation, later able to void well. * Still had hematuria with clots. * follow-up in the office next week for laser lithotripsy of ureteral stone. * If patient spikes fever may consider ESWL while patient is admitted. * encouraged to think about stone analysis given the fact that he has a recurrent issue with stones. Patient will likely benefit from diet modifications and lifestyle changes. * Repeat CBC in a.m. Elevated creatinine * Patient's creatinine on admission was 1.5. Cr today is 1.3 * Likely due to post renal causes. Continue to encourage by mouth intake. * We will repeat BEP in a.m. History of diabetes * Patient is currently on insulin sliding scale. * Sugars are well controlled: 161, 190, 184, 229 * He initially received aggressive fluid hydration with IV fluids and has been encouraged to drink by mouth intake now that he is tolerating a diet. #DVT prophylaxis * heparin subcutaneous. * Monitor for HIT. Code Status * Full Code Problem List: 1. Kidney stone 2. History of renal calculi 3. Ureterolithiasis 4. Leukocytosis 5. Sepsis Pain Ratin Pain Location: urethral region Pain Goal: Pain 4 or less Pain Plan: Tylenol PRN Tomorrow's Labs & Rationales: CBC - to monitor white count in sepsis BEP - to monitor renal funciton in post renal injury PAN VALLES,BAM 05/07/16 1238: Attending MD Review Statement Attending Statement Attending MD Statement: examined this patient, discuss w/resident/PA/CUSTOMER SUPPORT COORDINATOR, agreed w/resident/PA/CUSTOMER SUPPORT COORDINATOR, discussed with family, reviewed EMR data (avail), discussed with nursing, discussed with case mgmt, amended to note Attending Assessment/Plan: Patient seen and examined, overall doing better. Remains afebrile and white count is improving. Patient is a 75 male who was admitted with sepsis secondary to UTI. He also had a obstructing left ureteral stone which is now status post stents. Urine culture growing Citrobacter Koseri. Awaiting blood cultures. Patient responding well with ceftriaxone. We'll DC the Cole. Will give him a voiding trial. If remains afebrile with white count improving likely would switch to oral antibiotics tomorrow and discharge him home.
[2016-05-07 08:42] LABS: ABSOLUTE BASOPHIL COUNT 0 /CUMM (0.0-0.2); ABSOLUTE EOSINOPHIL COUNT 0.1 /CUMM (0.0-0.7); ABSOLUTE GRANULOCYTE CT 15.5 /CUMM (1.4-6.5); ABSOLUTE LYMPH COUNT 1.3 /CUMM (1.2-3.4); ABSOLUTE MONOCYTE COUNT 0.7 /CUMM (0.10-0.60); BASOPHIL % 0.1 % (0.0-2.0); EOSINOPHIL % 0.6 % (0-5); HEMATOCRIT 39.1 % (42-52); MEAN CORPUSCULAR HGB 26.5 PG (27.0-31.0); MEAN CORPUSCULAR HGB CONC 32.6 G/DL (33.0-37.0); MEAN CORPUSCULAR VOLUME 81.4 FL (80.0-94.0); PLATELET COUNT 228 /CUMM (130-400); RBC DISTRIBUTION WIDTH 15.4 % (11.5-14.5); WHITE BLOOD CELL COUNT 17.6 /CUMM (4.8-10.8)
[2016-05-07 14:56] VITALS: BP 130/70
--- NOTE | 2016-05-07 15:52 | NUR ---
SPOKE TO DR ELIZONDO ABOUT PT. REMOVED LOW AND PT IS VOIDING. PT HAD STENT PLACEMENT. URINE RANGES FROM CASSIDY YELLOW TO PINK WITH SOME RED CLOTS. PT WAS NERVOUS BECAUSE HE WAS INCONTINENT AT TIMES. PT STATES IT HAS GOTTEN BETTER. VOIDED 650 IN URINAL AND HAD ONE LARGE INCONTINENT EPISODE. ALSO INFORMED MD VIA PAGE THAT PT REFUSES HEPARIN.
[2016-05-07 22:10] VITALS: BP 142/76
[2016-05-08 05:52] VITALS: BP 130/76
--- NOTE | 2016-05-08 08:00 | PN- Housestaff ---
See Addendum Subjective Follow-up For: Nephrolithaiss Sepsis Subjective: Patient seen and examined at bedside. He is resting comfortably in the chair, and walking around with . Offers no complaints. Continues to feel better without any fever, chills, nausea, vomiting. Denies hematuria. Review of Systems Constitutional: Reports: see HPI. Objective Last 24 Hrs of Vital Signs/I&O Vital Signs Date Time Temp Pulse Resp B/P Pulse O2 O2 Flow FiO2 Ox Delivery Rate 05/08 0812 83 138/70 05/08 0800 Room Air 05/08 0552 98.8 68 20 130/76 98 Room Air 05/07 2210 99.1 81 20 142/76 95 / 1456 98.2 68 20 130/70 98 / 1110 83 130/86 Intake & Output 05/08 1600 05/08 0800 05/08 0000 Intake Total 240 Output Total 1500 250 Balance -1260 -250 Intake, Oral 240 Output, Urine 1500 250 Physical Exam General Appearance: Alert, Oriented X3, Cooperative, No Acute Distress Other Physical Findings: Cardiovascular: Normal S1, Normal S2, No Murmurs Lungs: Clear to Auscultation Abdomen: Normal Bowel Sounds, Soft, No Tenderness Neurological: Normal Speech Extremities: No Clubbing, No Cyanosis, No Edema Vascular: Normal Pulses Other Physical Findings: Urine output from Osei Appears Marie. No evidence of any clots donal hematuria. Current Medications: Current Medications Sig/Harini Start time Last Medication Dose Route Stop Time Status Admin Acetaminophen 650 MG .STK-MED ONE 05/07 2010 DC PO 05/08 2011 Acetaminophen 1,000 MG Q8P PRN 05/05 2045 AC 05/06 N/A 1 UNIT IV 1642 Acetaminophen 650 MG Q6P PRN 05/05 2014 AC 05/07 PO 2014 Aspirin Buffered 81 MG DAILY 05/06 1000 AC 05/08 PO 0812 Atorvastatin Calcium 10 MG 1700 05/06 1700 AC 05/07 PO 1615 Ceftriaxone Sodium 1,000 MG 1800 05/06 1800 AC 05/07 IV 1616 Heparin Sodium 5,000 UNIT Q8 05/06 1440 AC (Porcine) SC Hydromorphone HCl 0.5 MG Q4P PRN 05/05 2014 AC 05/06 IV 0740 Insulin Aspart 0 TIDAC 05/06 0800 AC 05/08 SC 0808 Losartan Potassium 50 MG DAILY 05/06 1000 AC 05/08 PO 0812 Melatonin 5 MG AT BEDTIME PRN 05/06 2030 AC 05/07 PO 2013 Multivitamins 1 TAB DAILY 05/06 1000 AC 05/08 Therapeutic PO 08 Omeprazole 40 MG DAILY AC 05/06 0700 AC 05/08 PO 0617 Polyethylene Glycol 17 GM DAILY PRN 05/06 0815 AC 05/07 PO 0246 Last 24 Hrs of Lab/Osvaldo Results Last 24 Hrs of Labs/Mics: Laboratory Tests 05/08/16 0624: Anion Gap 8, Estimated GFR > 60, BUN/Creatinine Ratio 18.2, CBC w Diff NO MAN DIFF REQ, RBC 4.80, MCV 79.0 L, MCH 26.2 L, RDW 15.0 H, MPV 8.7, Gran % 77.2 H, Lymphocytes % 13.6 L, Monocytes % 7.7, Eosinophils % 1.1, Basophils % 0.4, Absolute Granulocytes 8.1 H, Absolute Lymphocytes 1.4, Absolute Monocytes 0.8 H, Absolute Eosinophils 0.1, Absolute Basophils 0, PUBS MCHC 33.2 Assessment/Plan Assessment: This is a 75-year-old gentleman with past medical history of recurrent stones who presented to the emergency department on 05/05/2016 complaining of left-sided flank pain. At the time of admission the patient was taken for a placement of a ureteral stent owing to left hydroureteronephrosis. CT abdomen and pelvis with IV contrast showed evidence of a 0.5 cm midureteral stone. Following stent placement the patient received symptomatic relief. Sepsis of urological origin. * Patient blood culture was positive for: GNR * Urine cultures grew - Citrobacter Koseri (sensitive to cefazolin) * Cont IV CTX, transition to Augmentin on discharge * follow-up in the office next week for laser lithotripsy of ureteral stone. * If patient spikes fever may consider ESWL while patient is admitted. * encouraged to think about stone analysis given the fact that he has a recurrent issue with stones. Patient will likely benefit from diet modifications and lifestyle changes. * Repeat CBC in a.m. Elevated creatinine * Patient's creatinine on admission was 1.5. Cr today is 1.3 * Likely due to post renal causes. Continue to encourage by mouth intake. * We will repeat BEP in a.m. History of diabetes * Patient is currently on insulin sliding scale. * Sugars are well controlled * He initially received aggressive fluid hydration with IV fluids and has been encouraged to drink by mouth intake now that he is tolerating a diet. #DVT prophylaxis * heparin subcutaneous. * Monitor for HIT. Code Status * Full Code Problem List: 1. Kidney stone 2. Renal cyst 3. Diverticulosis 4. Bilateral shoulder region arthritis 5. History of renal calculi 6. Ureterolithiasis 7. Leukocytosis 8. Sepsis Pain Ratin Pain Location: N/A Pain Goal: Remain pain free Pain Plan: Mild pathway Tomorrow's Labs & Rationales: None - d/c None - d/c
[2016-05-08 08:12] VITALS: BP 138/70
[2016-05-08 08:17] LABS: ABSOLUTE BASOPHIL COUNT 0 /CUMM (0.0-0.2); ABSOLUTE EOSINOPHIL COUNT 0.1 /CUMM (0.0-0.7); ABSOLUTE GRANULOCYTE CT 8.1 /CUMM (1.4-6.5); ABSOLUTE LYMPH COUNT 1.4 /CUMM (1.2-3.4); ABSOLUTE MONOCYTE COUNT 0.8 /CUMM (0.10-0.60); BASOPHIL % 0.4 % (0.0-2.0); EOSINOPHIL % 1.1 % (0-5); GRANULOCYTE % 77.2 % (42.2-75.2); HEMATOCRIT 37.9 % (42-52); MEAN CORPUSCULAR HGB 26.2 PG (27.0-31.0); MEAN CORPUSCULAR HGB CONC 33.2 G/DL (33.0-37.0); MEAN PLATELET VOLUME 8.7 FL (7.4-10.4); PLATELET COUNT 249 /CUMM (130-400); WHITE BLOOD CELL COUNT 10.5 /CUMM (4.8-10.8)
[2016-05-08] MEDS ORDERED: AUGMENTIN 875-1 EACH PO (10:17)
--- NOTE | 2016-05-09 10:32 | RADIOLOGY REPORT ---
EXAMINATION: XR ABDOMEN CLINICAL INDICATION: Retrograde left pyelogram. Left ureteral stent placement. COMPARISON: KUB dated 06/03/2015. TECHNIQUE: Fluoroscopic C-arm equipment was dedicated to the operating room for the performance of a retrograde pyelogram and ureteral stent placement. 2 spot films were acquired and are archived in PACS. FLUOROSCOPY TIME: 8.3 minutes. FINDINGS: There is partial opacification of the left renal collecting system and renal pelvis. Diagnostic detail is limited on single film with motion artifact. There is mild left-sided hydronephrosis. On final image, mid and distal extent of left ureteral stent is seen with distal pigtail in region of bladder. IMPRESSION: Retrograde left pyelogram with ureteral stent placement. Acquired images are of limited diagnostic value. Please refer to operative notes.
--- NOTE | 2016-05-13 11:34 | Discharge Summary ---
Visit Information Visit Dates Admission Date: 05/05/16 Discharge Date: 05/08/16 Hospital Course Course Attending Physician: BAM PERLA MD Primary Care Physician: CHELI WOODWARD MD Hospital Course: Mr Camilo is a 75-year-old gentleman with past medical history HLD, diabetes, HTN, CKD stage III and recurrent nephrolithiais who presented to the emergency department on 05/05/2016 complaining of left-sided flank pain. He was admitted onto our service and below is a summary of the care he received. #Bacteremia and Sepsis secondary to UTI At the time of admission, the patient was taken for emergent placement of a ureteral stent owing to left hydroureteronephrosis caused by Left Ureteral stone. CT abdomen and pelvis with IV contrast showed evidence of a 0.5 cm midureteral stone. Patient blood culture was positive for: Gram Negative Rods, this was further cultured down to Citrobacter Koseri. He was initially started on Ceftriaxone. At the time of admission, his WBC count was 21.0. This eventually trended down to 10.5 at the time of discharge. He was continued on Ceftriaxone till day four of admission. Mr Camilo was then transitioned to oral Augmentin for a total of fourteen days of antibiotic coverage. The patient was discharged home with instructions to follow up with urology for laser lithotripsy. #Elevated creatinine At the time of admission, the patients creatinine was 1.5. He was initially started on IV fluids. He was also encouraged to increase PO oral intake. At the time of discharge, his creatinine had normalized to 1.1. #History of diabetes The patient was maintained on a sliding scale. His blood sugars were well controlled. He was discharged home to continue his diabetic medications. Allergies: Coded Allergies: No Known Allergies (05/24/15) Pertinent Lab Results: SERVICE DATE: 05/05/16- EXAM TYPE: RAD - [id number] VIEW IMPRESSION: Retrograde left pyelogram with ureteral stent placement. Acquired images are of limited diagnostic value. Please refer to operative notes. DICTATED BY: MANI VALLES,ADOLFO Sebastian SERVICE DATE: 05/05/16-6750 EXAM TYPE: CAT - CT ABD & PELVIS W IV CONTRAST; CTA CHEST-PULMONARY EMBOLISM EXAMINATION: CT ANGIOGRAM OF THE CHEST WITH AND WITHOUT CONTRAST (CT PULMONARY ANGIOGRAM FOR PE) CT ABDOMEN AND PELVIS WITH CONTRAST IMPRESSION: 1. Mild left hydroureteronephrosis with a 0.5 cm mid ureteral obstructing calculus. Additional left renal calculi noted. Limited evaluation for right renal calculi due to contrast excretion. 2. No pulmonary embolism or other acute intrathoracic abnormality. 3. Diverticulosis. 4. Prostatomegaly with circumferential bladder wall thickening suggestive of partial outlet obstruction. VTE: negative DICTATED BY: ALLAN VALLES,DIOR Disposition Summary Disposition Principal Diagnosis: #Bacteremia and Sepsis secondary to UTI Additional Diagnosis: Diabetes Elevated Creatinine Discharge Disposition: home health services Discharge Instructions General Discharge Information Code Status: Full Code Patient's Diet: Heart Healthy Patient's Activity: As Tolerated Follow-Up Instructions/Appts: Please follow-up with your primary care physician on 05/11/2016. This is for a post hospital discharge follow-up. Please follow up with the office of Dr Carmichael next week 05/12/2016. You will likely need a L Ureteroscopy and laser Lithotripsy of Left ureteral stone in future Medications at Discharge Discharge Medications: Continue taking these medications: Atorvastatin Calcium (Atorvastatin Calcium) 20 MG TABLET 0.5 Tablet ORAL DAILY Qty = 90 Comments: Last Taken:05/07/16 Time:1615 Irbesartan (Irbesartan) 150 MG TABLET 0.5 Tablet ORAL DAILY Qty = 90 Comments: Last Taken:NOT TAKEN IN HOSPITAL Time: Metformin HCl (Metformin HCl) 1,000 MG TABLET 1 Tablet ORAL TWICE DAILY Qty = 180 Comments: Last Taken:NOT TAKEN IN HOSPITAL Time: Glimepiride (Glimepiride) 4 MG TABLET 1 Tablet ORAL DAILY Qty = 180 Comments: Last Taken:NOT TAKEN IN HOSPITAL Time: Esomeprazole Magnesium (Nexium) 20 MG CAPSULE.DR 1 Capsule ORAL DAILY Comments: Last Taken:NOT TAKEN IN HOSPITAL Time: Aspirin (Ecotrin*) 81 MG TABLET.DR 1 Tablet ORAL DAILY Comments: Last Taken:05/08/16 Time:0812 Multivitamin (Daily Multiple Vitamin) 1 EACH TABLET 1 Tablet ORAL DAILY Comments: Last Taken:NOT TAKEN IN HOSPITAL Time: Flaxseed Oil (Flax Oil) 1,000 MG CAPSULE 1 Capsule ORAL DAILY Comments: Last Taken:NOT TAKEN IN HOSPITAL Time: [place]-3 Fatty Acids/Fish Oil (Fish Oil 1,000 MG Capsule) 340 MG-1,000 MG CAPSULE 1 Capsule ORAL DAILY Comments: Last Taken:NOT TAKEN IN HOSPITAL Time: Start taking the following new medications: Amoxicillin/Potassium Clav (Augmentin 875-125 Tablet) 875 MG-125 MG TABLET 1 Tablet ORAL TWICE DAILY Days = 11 No Refills Comments: Last Taken:NOT TAKEN IN HOSPITAL Time: Copies To: CHELI WOODWARD MD Comments: Last Taken:NOT TAKEN IN HOSPITAL Time: Aspirin (Ecotrin*) 81 MG TABLET.DR 1 Tablet ORAL DAILY Comments: Last Taken:05/08/16 Time:0812 Multivitamin (Daily Multiple Vitamin) 1 EACH TABLET 1 Tablet ORAL DAILY Comments: Last Taken:NOT TAKEN IN HOSPITAL Time: Flaxseed Oil (Flax Oil) 1,000 MG CAPSULE 1 Capsule ORAL DAILY Comments: Last Taken:NOT TAKEN IN HOSPITAL Time: [place]-3 Fatty Acids/Fish Oil (Fish Oil 1,000 MG Capsule) 340 MG-1,000 MG CAPSULE 1 Capsule ORAL DAILY Comments: Last Taken:NOT TAKEN IN HOSPITAL Time: Start taking the following new medications: Amoxicillin/Potassium Clav (Augmentin 875-125 Tablet) 875 MG-125 MG TABLET 1 Tablet ORAL TWICE DAILY Days = 11 No Refills Comments: Last Taken:NOT TAKEN IN HOSPITAL Time: Copies To: CHELI WOODWARD MD
[2016-06-01] MEDS ORDERED: LEVEMIR FL100 UNIT/1 SC (10:51)
[2016-06-01] MEDS ORDERED: XANAX0.5 M1 PO (10:51)
== END 2016-05-08 11:15 | DRG 872 ==
LOC: ERH 14:18 → 2NA 19:12 → ENPENDDIS 19:12 → ERHI 19:12 → 2NA 20:35
PROVIDERS: Internal Medicine; Physician Assistant; Student in an Organized Health Care Education/Training Program; ADMIT Internal Medicine
PROC: 0T7D8DZ Dilation of Urethra with Intraluminal Device, Via Natural or Artificial Opening Endoscopic (ICD-10-PCS; principal; 2016-05-05)
DX: A41.9 Sepsis, unspecified organism (principal); N17.9 Acute kidney failure, unspecified; N13.30 Unspecified hydronephrosis; E11.9 Type 2 diabetes mellitus without complications; N20.1 Calculus of ureter; N12 Tubulo-interstitial nephritis, not specified as acute or chronic; B96.89 Other specified bacterial agents as the cause of diseases classified elsewhere; Z79.84 Long term (current) use of oral hypoglycemic drugs; E78.5 Hyperlipidemia, unspecified; I10 Essential (primary) hypertension; K21.9 Gastro-esophageal reflux disease without esophagitis
CPT/HCPCS: 2NASP; 36415; 74000; 74177; 81001; 82436; 87040; 87086; 93005; 93010; 96361; 96374; 96375; 99291; C2617; J0131; J0696; J1644; J1885

== ENCOUNTER 2016-06-02 20:51 | Inpatient (IN) | payer OTHER, MEDICARE ==
[~2016-06-02] VITALS: Ht 172.7 cm; Wt 97.5 kg
[~2016-06-02 20:51] MED LIST changes: +ASPIRIN EC81 M1 PO; +ATORVASTATIN CA20 M1 PO; +AUGMENTIN 875-1 EACH PO; +DAILY MULTIPLE1 EACH PO; +FISH OIL 1,0001 EACH PO; +FLAX OIL1000 M1 PO; +GLIMEPIRIDE4 M1 PO; +IRBESARTAN150 M1 PO; +LEVEMIR FL100 UNIT/1 SC; +METFORMIN HCL1000 M1 PO; +NEXIUM20 M1 PO; +XANAX0.5 M1 PO
--- NOTE | 2016-06-02 21:12 | NUR ---
PT TO ED C/O BURNING PAIN WITH URINATION AND FEVER AT HOME 100.8. DX WITH KIDNEY STONE ON LEFT, HAS STENT ON LEFT "SUPPOSED TO TAKE THE STENT OUT ON MONDAY AND TAKE CARE OF THE STONE" TEMP IN TRIAGE 99.1. DENIES N/V. STATES POOR APPETITE
--- NOTE | 2016-06-02 21:32 | NUR ---
LAB DRAWN AND SENT. SST LAV BLUE CHAVEZ
[2016-06-02 21:36] LABS: ABSOLUTE BASOPHIL COUNT 0 /CUMM (0.0-0.2); ABSOLUTE EOSINOPHIL COUNT 0 /CUMM (0.0-0.7); ABSOLUTE GRANULOCYTE CT 16.3 /CUMM (1.4-6.5); ABSOLUTE LYMPH COUNT 1.2 /CUMM (1.2-3.4); ABSOLUTE MONOCYTE COUNT 0.5 /CUMM (0.10-0.60); BASOPHIL % 0 % (0.0-2.0); EOSINOPHIL % 0.2 % (0-5); GRANULOCYTE % 90.3 % (42.2-75.2); HEMATOCRIT 45.4 % (42-52); MEAN CORPUSCULAR HGB 25.8 PG (27.0-31.0); MEAN CORPUSCULAR VOLUME 80.5 FL (80.0-94.0); MEAN PLATELET VOLUME 7.7 FL (7.4-10.4); PLATELET COUNT 257 /CUMM (130-400); RBC DISTRIBUTION WIDTH 15.2 % (11.5-14.5); RED BLOOD CELL CT 5.64 /CUMM (4.70-6.10)
--- NOTE | 2016-06-02 23:31 | NUR ---
TO ROOM 8.
--- NOTE | 2016-06-03 00:03 | NUR ---
PER DR AUSTIN BLOOD CULTURES NOT NEEDED
--- NOTE | 2016-06-03 00:06 | NUR ---
PT REFUSED DILAUDID DOES NOT LIKE THE WAY IT MAKES HIM FEEL. IVF ESTABLISHED, PT CONCERNED ABOUT FLUID OVERLOAD B/C IT HAPPENED TO A FIREND EDUCATED ABOUT THE IMPORTANCE OF 1 LITER OF FLUID. MED WITH TORADOL AND CEFAZOLIN.
--- NOTE | 2016-06-03 00:58 | ED GI/GU/ABDOMINAL COMPLAINT ---
History of Present Illness General Chief Complaint: General Adult Stated Complaint: BACK PAIN "I HAVE A KIDNEY STONE" FEVER PER PT Source: patient, family, old records Exam Limitations: no limitations Vital Signs & Intake/Output Vital Signs & Intake/Output Vital Signs Date Time Temp Pulse Resp B/P Pulse O2 O2 Flow FiO2 Ox Delivery Rate 06/03 0132 99.2 78 18 96/51 97 Room Air 06/02 2108 99.1 120 18 141/77 97 Room Air ED Intake and Output 06/03 0000 06/02 1200 Intake Total Output Total Balance Patient 216 lb Weight Allergies Coded Allergies: hydromorphone (From DILAUDID) (Mild, PT REPORTS DOES NOT LIKE THE WAY IT MAKES HIM FEEL 06/03/16) aspirin (325 MG / GI UPSET 06/01/16) Reconcile Medications Alprazolam (Xanax) 0.5 MG TABLET 1 TAB PO TIDPRN ANXIETY (Reported) Aspirin (Ecotrin*) 81 MG TABLET.DR 1 TAB PO DAILY HEART HEALTH (Reported) Atorvastatin Calcium 20 MG TABLET 0.5 TAB PO DAILY CHOLESTEROL (Reported) Esomeprazole Magnesium (Nexium) 20 MG CAPSULE.DR 1 CAP PO DAILY GI (Reported) Flaxseed Oil (Flax Oil) 1,000 MG CAPSULE 1 CAP PO DAILY SUPPLEMENT (Reported) Insulin Detemir (Levemir Flextouch) 100 UNIT/ML (3 ML) INSULN.PEN 10 UNITS SC DAILY DM II (Reported) TAKES AT 5 PM Irbesartan 150 MG TABLET 1 TAB PO DAILY HEART (Reported) Metformin HCl 1,000 MG TABLET 1 TAB PO BID DM (Reported) Multivitamin (Daily Multiple Vitamin) 1 EACH TABLET 1 TAB PO DAILY SUPPLEMENT (Reported) Triage Note: PT TO ED C/O BURNING PAIN WITH URINATION AND FEVER AT HOME 100.8. DX WITH KIDNEY STONE ON LEFT, HAS STENT ON LEFT "SUPPOSED TO TAKE THE STENT OUT ON MONDAY AND TAKE CARE OF THE STONE" TEMP IN TRIAGE 99.1. DENIES N/V. STATES POOR APPETITE Triage Nurses Notes Reviewed? yes Duration: hour(s):, constant, continues in ED, getting worse Timing: recent history Quality/Severity: aching, moderate, sharpness Location: left flank Radiation: no radiation Activities at Onset: none Prior Abdominal Problems: similar symptoms Past Sexual History: Unobtainable at this time No Modifying Factors: none Associated Symptoms: abdominal pain, fever/chills, loss of appetite, lower back pain, nausea/vomiting HPI: 1 month prior to admission patient was admitted for renal colic with UTI requiring ureteral stent. Antibiotics were discontinued last week for the second time as urine cultures were negative. Several hours prior to admission he developed low-grade fever nausea dysuria recurrent left flank pain described as achy ranges groin similar to previous kidney stone pain. He denies chest pain cough shortness of breath headache rash bleeding Past History Travel History Traveled to [place] past 21 day No Medical History Any Pertinent Medical History? see below for history Neurological: NONE EENT: NONE Cardiovascular: hypertension, hyperlipidemia Respiratory: NONE Gastrointestinal: GERD Hepatic: NONE Renal: nephrolithiasis Musculoskeletal: NONE Psychiatric: NONE Endocrine: diabetes History of MRSA: No History of VRE: No History of CDIFF: No Surgical History Surgical History: N Psychosocial History Who do you live with Family What is your primary language Romansh Tobacco Use: Quit >30 days ago ETOH Use: denies use Illicit Drug Use: denies illicit drug use Family History Hx Contributory? No Review of Systems Review of Systems Constitutional: Reports: see HPI, chills, fever. EENTM: Reports: no symptoms. Respiratory: Reports: no symptoms. Cardiovascular: Reports: no symptoms. GI: Reports: see HPI, abdominal pain, nausea. Genitourinary: Reports: see HPI, dysuria, pain. Musculoskeletal: Reports: no symptoms. Skin: Reports: no symptoms. Neurological/Psychological: Reports: no symptoms. Hematologic/Endocrine: Reports: no symptoms. Immunologic/Allergic: Reports: no symptoms. All Other Systems: Reviewed and Negative Physical Exam Physical Exam General Appearance: well developed/nourished, alert, awake, anxious, mild distress, obese Head: atraumatic, normal appearance Eyes: Bilateral: normal appearance, PERRL, EOMI, normal inspection. Ears, Nose, Throat, Mouth: hearing grossly normal, moist mucous membrane Neck: normal inspection, supple, full range of motion, normal alignment Respiratory: normal breath sounds, chest non-tender, no respiratory distress, quiet respiration, lungs clear Cardiovascular: regular rate/rhythm, normal peripheral pulses, norml femoral pulses equa Peripheral Pulses: 4+ carotid (R), 4+ carotid (L) Gastrointestinal: normal bowel sounds, soft, non-tender, no organomegaly Male Genitals: normal genitalia Back: normal inspection, normal range of motion, no vertebral tenderness Extremities: normal range of motion, no ligament instability Neurologic/Psych: no motor/sensory deficits, awake, alert, oriented x 3, normal gait, normal mood/affect, 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 No Severe Sepsis Present: No Septic Shock Present: No Progress Differential Diagnosis: pyelonephritis, ureterolithiasis, UTI/pyelo Plan of Care: Orders Procedure Date/time Status Regular Diet 06/03 B Active LACTIC ACID 06/03 0407 Active Code Status 06/03 0158 Active TRC EVALUATION (GEN) 06/03 133 Active OXYGEN SETUP (GEN) 06/03 133 Active Pathway - chart 06/03 133 Active House Staff 06/03 013 Active Patient Data 06/[address] ABD & PELVIS W/O IV CONTRAS 06/03 0110 Active BLOOD CULTURE 06/03 0107 Active LACTIC ACID 06/03 0107 Active Patient Data 06/03 0101 Active Intake & Output 06/03 0007 Active VTE Mechanical Prophylaxis 06/03 UNK Active MISTAKE 06/03 UNK Active Intake & Output 06/03 UNK Active [place] Coma Scale 06/03 UNK Active FingerStick- Glucose 06/03 UNK Active Add-on Test (ER Only) 06/02 235 Active OXYGEN SETUP (GEN) 06/02 2342 Active Saline Lock 06/02 2342 Active Admit to inpatient 06/02 2342 Active Vital Signs 06/02 2342 Active Activity/Ambulation 06/02 2342 Active Code Status 06/02 234 Complete CULTURE,URINE 06/03 2119 Active URINALYSIS 06/02 2112 Complete COMPREHENSIVE METABOLIC PANEL 06/02 2112 Complete CBC WITHOUT DIFFERENTIAL 06/02 2112 Complete Current Medications Sig/Harini Start time Last Medication Dose Stop Time Status Admin Sodium Chloride 1,000 ML Q13H 06/03 0115 AC (Normal Saline 0.9%) Laboratory Tests 06/03/16 015: Lactic Acid Pending 06/02/162128: Anion Gap 15, Estimated GFR 50 L, BUN/Creatinine Ratio 30.0 H, Glucose 267 H, Calcium 10.2, Total Bilirubin 0.8, AST 22, ALT 35, Alkaline Phosphatase 65, Total Protein 7.6, Albumin 4.8, Globulin 2.8, Albumin/Globulin Ratio 1.7, CBC w Diff MAN DIFF ORDERED, RBC 5.64, MCV 80.5, MCH 25.8 L, RDW 15.2 H, MPV 7.7, Gran % 90.3 H, Lymphocytes % 6.6 L, Monocytes % 2.9, Eosinophils % 0.2, Basophils % 0 L, Absolute Granulocytes 16.3 H, Absolute Lymphocytes 1.2, Absolute Monocytes 0.5, Absolute Eosinophils 0, Absolute Basophils 0, Platelet Estimate ADEQUATE, Normocytic RBCs VERIFIED, Normochromic RBCs VERIFIED, Polychromasia 1+, Anisocytosis 1+, PUBS MCHC 32.0 L 06/02/162119: Urine Color YEL, Urine Clarity CLDY H, Urine pH 6.0, Ur Specific [place] 1.020, Urine Protein 100 H, Urine Ketones NEG, Urine Nitrite POS H, Urine Bilirubin NEG, Urine Urobilinogen 0.2, Ur Leukocyte Esterase MOD H, Ur Microscopic SEDIMENT EXAMINED, Urine RBC 15-25 H, Urine WBC PACKD H, Ur Epithelial Cells FEW, Urine Bacteria MANY H, Urine Mucus MOD H, Urine Hemoglobin MOD H, Urine Glucose 250 H Microbiology 06/033 BLOOD: Blood Culture - RECD 06/04 155 BLOOD: Blood Culture - RECD 06/03 2119 URINE ROUT: Urine Culture - RECD Initial ED EKG: none Departure Departure Disposition: STILL A PATIENT Condition: Stable Clinical Impression Primary Impression: Renal colic on left side Secondary Impressions: Leukocytosis Qualifiers: Leukocytosis type: unspecified Qualified Code: D72.829 - Elevated white blood cell count, unspecified Prerenal azotemia UTI (urinary tract infection) Qualifiers: Urinary tract infection type: site unspecified Hematuria presence: with hematuria Qualified Codes: N39.0 - Urinary tract infection, site not specified; R31.9 - Hematuria, unspecified Referrals: CHELI WOODWARD MD (PCP/Family) Departure Forms: Customer Survey General Discharge Information Admission Note Spoke With: CATHY MENDOZA MD Documentation of Exam: Documentation of any treatments & extenuating circumstances including Concerns Regarding Discharge (functional status, medication knowledge or non-compliance, living conditions, etc.) that warrant an admission rather than observation: IV antibiotics urology evaluation serial lab exam follow urine culture medication adjustment continuing care discharge planning
--- NOTE | 2016-06-03 01:05 | RADIOLOGY REPORT ---
EXAMINATION: XR KIDNEYS, URETER, BLADDER CLINICAL INDICATION: Left ureteral stent. Left flank pain. COMPARISON: Abdominal radiograph 05/18/2016. TECHNIQUE: AP radiograph of the abdomen and pelvis was performed. 2 images total. FINDINGS: There is a ureteral stent that remains essentially unchanged in position when compared to the recent prior radiographs from 05/18/2016. The proximal curl is located within the expected position of the left renal pelvis and the distal curl is located within the urinary bladder. No definite calcifications visualized along the course of the left ureteral stent. A nonobstructing calculus is redemonstrated within a lower pole calyx of left kidney. Visualized bowel gas pattern is normal. No acute osseous finding. Chronic degenerative spondylosis at L5-S1. IMPRESSION: The position of the left ureteral stent remains unchanged. No definite calcification is visualized along the expected course of the left ureter. A nonobstructing calculus within a lower pole calyx left kidney is redemonstrated.
--- NOTE | 2016-06-03 01:44 | NUR ---
PER DR BELLE WHO HAS NOT YET SEEN PT BLOOD CULTURES ARE ABSOLUTELY NECESSARY NOW. PT MAY BE SEPTIC, SHE IS AWARE THAT PER DR AUSTIN PT DOES NOT NEED THEM AND PT HAS RECIEVED ANTIBIOTICS ALREADY. PER DR BELLE, DIFFERENT DRS HAVE DIFFERENT THOUGHTS ABOUT THAT AND SHE NEEDS THEM NOW. WAS THEN ASKED NOT TO ORDER 0600 LABS,
--- NOTE | 2016-06-03 01:47 | NUR ---
PT TO BE ED HOLD.
--- NOTE | 2016-06-03 01:55 | NUR ---
HOUSESTAFF AT BEDSIDE.
--- NOTE | 2016-06-03 03:00 | NUR ---
ASLEEP NO DISTRESS, REPORT GIVEN TO
--- NOTE | 2016-06-03 03:18 | NUR ---
PT AWAKE. IS AFEBRILE. SECOND LITER NS INFUSING ORDERED
--- NOTE | 2016-06-03 03:19 | History & Physical ---
KOBI ORTEZ 06/03/16 0319: General Information and HPI MD Statement: I have seen and personally examined DAYA JOHNSON and documented this H&P. The patient is a 75 year old M who presented with a patient stated chief complaint of fever, chills, back pain, painful urination. Source of Information: patient Exam Limitations: no limitations History of Present Illness: This is a 75-year-old male with past medical history significant for hypertension, hyperlipidemia, GERD, diabetes mellitus, anxiety, nephrolithiasis, UTI twice in the past, history of ureteral stones, left ureteral stent placement in the past, and enlarged prostate presented to emergency department with a chief complaint of fever, chills, back pain, burning urination for one day. Patient reported history of UTIs twice in the last month. He was admitted at [facility] on 05/05/2016 for left ureteral stone status post left ureteral stent placement. He was advised to get his stent removed on June 06/2017. His urine grew gram-negative rods Citrobacter in May 2016. However he feels no relief even after stent placement. He has worsening low back pain, 10 out of 10, achy and sharp, nonradiating. Low back pain is associated with sudden onset fever this morning. 100.8 temperature associated with chills. He is nauseous however denies any vomiting, diarrhea, constipation. He does report frequency, dysuria, urgency. Denies any blood in urine. Patient denied any chest pain, racing of heart, headache, numbness, tingling sensation, weakness or sensory changes, gait or vision abnormalities, short of breath, cough, abdominal pain, vomiting, diarrhea or constipation. Denies any sick contacts or travel history. He denies any smoking, alcohol abuse, illicit drug intake. Allergies/Medications Allergies: Coded Allergies: hydromorphone (From DILAUDID) (Mild, PT REPORTS DOES NOT LIKE THE WAY IT MAKES HIM FEEL 06/03/16) aspirin (325 MG / GI UPSET 06/01/16) Home Med list Alprazolam (Xanax) 0.5 MG TABLET 1 TAB PO TIDPRN ANXIETY (Reported) Aspirin (Ecotrin*) 81 MG TABLET. 1 TAB PO DAILY HEART HEALTH (Reported) Atorvastatin Calcium 20 MG TABLET 0.5 TAB PO DAILY CHOLESTEROL (Reported) Esomeprazole Magnesium (Nexium) 20 MG CAPSULE.DR 1 CAP PO DAILY GI (Reported) Flaxseed Oil (Flax Oil) 1,000 MG CAPSULE 1 CAP PO DAILY SUPPLEMENT (Reported) Insulin Detemir (Levemir Flextouch) 100 UNIT/ML (3 ML) INSULN.PEN 10 UNITS SC DAILY DM II (Reported) TAKES AT 5 PM Irbesartan 150 MG TABLET 1 TAB PO DAILY HEART (Reported) Metformin HCl 1,000 MG TABLET 1 TAB PO BID DM (Reported) Multivitamin (Daily Multiple Vitamin) 1 EACH TABLET 1 TAB PO DAILY SUPPLEMENT (Reported) Compliance With Home Meds: GOOD Past History Travel History Traveled to [place] past 21 day No Medical History Neurological: NONE EENT: NONE Cardiovascular: hypertension, hyperlipidemia Respiratory: NONE Gastrointestinal: GERD Hepatic: NONE Renal: nephrolithiasis Musculoskeletal: NONE Psychiatric: NONE Endocrine: diabetes History of MRSA: No History of VRE: No History of CDIFF: No Surgical History Surgical History: N Past Family/Social History Psychosocial History Smoking Status: Never Smoked ETOH Use: denies use Illicit Drug Use: denies illicit drug use Sexual History Past Sexual History Unobtainable at this time Review of Systems Review of Systems Constitutional: Reports: chills, fever. Denies: diaphoresis, malaise, weakness, unexplained weight loss. EENTM: Denies: no symptoms. Cardiovascular: Denies: chest pain, edema, orthopena, palpitations, peripheral edema, syncope. Respiratory: Denies: cough, hemoptysis, orthopnea, short of breath, sputum production. GI: Reports: nausea. Denies: abdominal pain, bloating, constipation, diarrhea, distention, vomiting. Genitourinary: Reports: dysuria, frequency, pain, urgency. Denies: hematuria, nocturia. Musculoskeletal: Reports: back pain. Denies: gout, joint pain, muscle pain. Skin: Denies: no symptoms. Neurological/Psychological: Denies: anxiety, depressed, emotional problems, headache, numbness, tingling, tremors. Exam & Diagnostic Data Last 24 Hrs of Vital Signs/I&O Vital Signs Date Time Temp Pulse Resp B/P Pulse O2 O2 Flow FiO2 Ox Delivery Rate 06/03 0442 100.7 107 18 126/67 95 Room Air 06/03 0132 99.2 78 18 96/51 97 Room Air 06/02 2108 99.1 120 18 141/77 97 Room Air Intake & Output 06/03 0800 06/03 0000 06/02 1600 Intake Total 1000 Output Total Balance 1000 Intake, IV 1000 Patient 97.976 kg Weight Physical Exam General Appearance Alert, Oriented X3, Cooperative, No Acute Distress Skin No Rashes, No Breakdown, No Significant Lesion HEENT Atraumatic, PERRLA, EOMI, Mucous Membr. moist/pink Neck Supple, No JVD, No thryomegaly Lymphatic Axillary nl, Cervical nl Cardiovascular Regular Rate, Normal S1, Normal S2, No Murmurs Lungs Clear to Auscultation, Normal Air Movement Abdomen Normal Bowel Sounds, Soft, No Tenderness, No Hepatospenomegaly, No Masses Neurological Strength at 5/5 X4 Ext, Normal Tone, Sensation Intact, Cranial Nerves 3-12 NL, Reflexes 2+ Extremities No Clubbing, No Cyanosis, No Edema, Normal Pulses, No Tenderness/ Swelling Vascular Normal Pulses, Pulses Symmetrical Last 24 Hrs of Labs/Osvaldo: Laboratory Tests 06/03/16 0441: Lactic Acid 2.5 H 06/03/16 0156: Lactic Acid 3.4 H 06/02/162128: Anion Gap 15, Estimated GFR 50 L, BUN/Creatinine Ratio 30.0 H, Glucose 267 H, Calcium 10.2, Total Bilirubin 0.8, AST 22, ALT 35, Alkaline Phosphatase 65, Total Protein 7.6, Albumin 4.8, Globulin 2.8, Albumin/Globulin Ratio 1.7, CBC w Diff MAN DIFF ORDERED, RBC 5.64, MCV 80.5, MCH 25.8 L, RDW 15.2 H, MPV 7.7, Gran % 90.3 H, Lymphocytes % 6.6 L, Monocytes % 2.9, Eosinophils % 0.2, Basophils % 0 L, Absolute Granulocytes 16.3 H, Absolute Lymphocytes 1.2, Absolute Monocytes 0.5, Absolute Eosinophils 0, Absolute Basophils 0, Platelet Estimate ADEQUATE, Normocytic RBCs VERIFIED, Normochromic RBCs VERIFIED, Polychromasia 1+, Anisocytosis 1+, PUBS MCHC 32.0 L 06/02/162119: Urine Color YEL, Urine Clarity CLDY H, Urine pH 6.0, Ur Specific [place] 1.020, Urine Protein 100 H, Urine Ketones NEG, Urine Nitrite POS H, Urine Bilirubin NEG, Urine Urobilinogen 0.2, Ur Leukocyte Esterase MOD H, Ur Microscopic SEDIMENT EXAMINED, Urine RBC 15-25 H, Urine WBC PACKD H, Ur Epithelial Cells FEW, Urine Bacteria MANY H, Urine Mucus MOD H, Urine Hemoglobin MOD H, Urine Glucose 250 H Microbiology 06/03 0203 BLOOD: Blood Culture - RECD 06/03 0156 BLOOD: Blood Culture - RECD 06/020 URINE ROUT: Urine Culture - RECD Assessment/Plan Assessment: This is a 75-year-old male with past medical history significant for hypertension, hyperlipidemia, GERD, diabetes mellitus, anxiety, nephrolithiasis, UTI twice in the past, history of ureteral stones, left ureteral stent placement in the past, and enlarged prostate presented to emergency department with a chief complaint of fever, chills, back pain, burning urination for one day. Patient reported history of UTIs twice in the last month. He was admitted at [facility] on 05/05/2016 for left ureteral stone status post left ureteral stent placement. He was advised to get his stent removed on June 06/2017. His urine grew gram-negative rods Citrobacter in May 2016. Vital signs on admission: Temperature 99.1, pulse rate 120, respiratory rate 18, blood pressure 141/77, oxygen saturation 97% on room air Pertinent lab: Leukocytosis to 18 with granulocytosis. Sodium 135, potassium 5.3, creatinine 1.4, GFR 50, glucose 267, lactic acid 3.4>> 2.5 Urine analysis-cloudy, nitrites and esterase positive, packed WBC, bacteriuria Pertinent imaging: KUB x-ray:The position of the left ureteral stent remains unchanged. No definite calcification is visualized along the expected course of the left ureter. A nonobstructing calculus within a lower pole calyx left kidney is redemonstrated. Problem list 1. Acute pyelonephritis/complicated UTI 2. Sepsis of urologic origin 3. Elevated creatinine 4. Hypertension 5. Hyperlipidemia 6. GERD 7. Diabetes mellitus 8. Anxiety Acute pyelonephritis/complicated UTI Impression presented with fever 100.8, chills, nausea, burning urination, frequency, dysuria and urgency. He has past medical history significant for UTIs. Recent left ureteral stent placement. X-ray show nonobstructive calculus in the lower pole of the kidney. Pyelonephritis possibly secondary to complicated UTI and ureteral stones * Admitted to general medicine floor for further management * Monitor vitals closely * Maintain oxygen saturation above 97% * Urine cultures * Blood cultures * CT abdomen * IV fluids * Pain management * IV antibiotics ceftriaxone * Monitor CBC in the morning * Nothing by mouth for possible procedure * Urology was consulted Sepsis of urologic origin Patient fulfilled sepsis criteria on admission tachycardic, leukocytosis. Source of infection urine, x-ray findings suggestive of ureteral calculus * Monitor vitals closely * Lactic acid elevated on admission * Will repeat next lactic acid level * Continue IV fluids #Elevated creatinine: Level was 1.1 in May 2016 upon discharge, will continue IV hydration. Hold Irbesartan and metformin. Repeat levels in the morning. #Diabetes: Accu-Cheks, Will continue the patient on Levemir 10 units daily. Will hold metformin and maintain the patient on insulin sliding scale while inpatient. #Hyperkalemia: Potassium mildly elevated to 5.3, asymptomatic. Will recheck levels in the morning. Hypertension irbesartan on hold because of elevated creatinine Hyperlipidemia Continue statins GERD Continue Nexium Anxiety Continue xanax #Patient was instructed to hold his home medications of aspirin, fish oil and flax oil 1 week before his procedure which was scheduled on this Monday. We will continue to hold above medications; consult urology regarding ventilatory start his medications. DVT prophylaxis-alps npo Full code As Ranked By This Provider Problem List: 1. Kidney stone 2. Diverticulosis 3. Leukocytosis Qualifiers Leukocytosis type: unspecified Qualified Code: D72.829 - Elevated white blood cell count, unspecified 4. Sepsis 5. Renal colic on left side 6. UTI (urinary tract infection) Qualifiers Urinary tract infection type: site unspecified Hematuria presence: with hematuria Qualified Codes: N39.0 - Urinary tract infection, site not specified; R31.9 - Hematuria, unspecified Core Measures/Miscellaneous Acute Coronary Syndrome ACS Diagnosis: No Cerebrovascular Accident CVA/TIA Diagnosis: No Congestive Heart Failure CHF Diagnosis: No Venous Thromboembolism VTE Risk Factors: Age > 40 [facility] d/t: No contraindications No VTE Pharm Prophylaxis d/t: No contraindications VTE Diagnosis: No VTE Type: NONE VTE Confirmed by (Test): NONE Severe Sepsis Severe Sepsis Present: No Septic Shock Septic Shock Present: No Miscellaneous Documentation Attending Case Discussed With: CATHY MENDOZA MD Primary Care Physician: CHELI WOODWARD MD Patient sees these Specialists urology Level of Patient Care: General Medicine JANIE BELLE 06/03/16 0323: Resident Review Statement Resident Statement: examined this patient, discussed with director internal communications, agreed with director internal communications, reviewed EMR data (avail), discussed with nursing, reviewed images Other Findings: This is a 75-year-old gentleman with past medical history significant for diabetes, hypertension, recurrent nephrolithiasis, history of obstructive stones status post left side ureteral stent insertion in May 2016 who presents to the hospital with dysuria and fever. Patient has been having urinary symptoms including dysuria and frequency since May he has been following with urology as outpatient he was suggested by her urologist to come to the ED if he develops any fever. He was initially scheduled for stent removal this Monday. Please see above for more details. Vital signs on admission: Temperature 99.1, pulse rate 120, respiratory rate 18, blood pressure 141/77, oxygen saturation 97% on room air. Pertinent physical exam at the time of admission: AAO 3, NAD. HEENT: HNACT, PERRLA, EOMI, the moist mucous membrane, normal pharynx. Neck: Supple, no JVD, no lymphadenopathy. CV: RRR, no murmur. Lungs: CTA. Abdomen: Normal bowel sounds, soft, NT, ND, no CVA tenderness. Extremities: No edema, normal pulses. Neurologic: Cranial nerves III-12 intact, normal reflexes, normal range of motion. Skin: Warm, with normal capillary refill. Pertinent lab: Leukocytosis to 18 with granulocytosis. Sodium 135, potassium 5.3, creatinine 1.4, GFR 50, glucose 267, lactic acid 3.4>> 2.5 Pertinent imaging: KUB x-ray:The position of the left ureteral stent remains unchanged. No definite calcification is visualized along the expected course of the left ureter. A nonobstructing calculus within a lower pole calyx left kidney is redemonstrated. Problem list/plan: #Sepsis of urological origin: Likely secondary to complicated UTI. Will obtain urine culture, blood cultures [address] scan. Will start the patient on IV hydration after bolus. Will trend lactic acid. Will start the patient on IV ceftriaxone. Adequate pain management. Urology consult in the morning. Will keep the patient nothing by mouth in case he requires any procedure in the morning. #Elevated creatinine: Level was 1.1 in May 2016 upon discharge, will continue IV hydration. Hold [employer] Irbesartan and metformin. Repeat levels in the morning. #Diabetes: Accu-Cheks, Will continue the patient on MACH[employer] Levemir 10 units daily. Will hold metformin and maintain the patient on insulin sliding scale while inpatient. #Hyperkalemia: Potassium mildly elevated to 5.3, asymptomatic. Will recheck levels in the morning. #Patient was instructed to hold his home medications of aspirin, fish oil and flax oil 1 week before his procedure which was scheduled on this Monday. We will continue to hold above medications; consult urology regarding when to restart these medications. #DVT prophylaxis with Alps. REJILISETTEADRIANNA 06/03/16 0431: Attending MD Review Statement Attending Statement Attending MD Statement: examined this patient, discuss w/resident/PA/PLATE STACKER, agreed w/resident/PA/PLATE STACKER, reviewed EMR data (avail), reviewed images, amended to note Attending Assessment/Plan: CC: Urinary burning, fever of 100.8 PMH: Recurrent nephrolithiasis, DM, HTN Patient was admitted from May 05 to May 08 for obstructive stone, underwent cystoscopy and double J ureteral stent insertion. Patient was expected to get stent removal on first week of June. After discharge patient persistently had UTI symptoms, frequency, burning, irritation, pain while urination. Intermittent low back pain. He was again treated with Bactrim for UTI, without much improvement. Later on he was suggested to stop antibiotics. He followed up with urologist who suggested if he spikes fever more than 100.4 he should go to ER. Today he had sharp back pain, persistent urinary symptoms as above and fever of 100.8 associated with chills, feeling very lethargic so came to ER. Vitals: T max 99.2, tachycardic at 120, RR, BP 141/77, O2 saturation within acceptable range. On examination: Anxious, no acute distress, a O 3, neck supple, no lymphadenopathy, no pharyngeal congestion, mucosa dry, no JVD. CVS: S1-S2, RRR. RS: Clear to auscultate bilaterally. Abdomen: Obese, soft, NT, tender only with deep palpation on the left side of her abdomen, ND, no CVA tenderness. Bowel sounds normal. No pedal edema, peripheral pulses perfusion normal. No focal neurological deficit. Labs: WBC 18.0, granulocytes 90%, bicarbonate 20, creatinine 1.4, glucose 267, calcium 10.2 , lactate 3.4 UA positive for protein, nitrite, leukocyte esterase, RBC, WBC, bacteria X-ray KUB: The position of the left ureteral stent remains unchanged. No definite calcification is visualized along the expected course of the left ureter. A nonobstructing calculus within a lower pole calyx left kidney is redemonstrated. A and P #1 sepsis secondary to complicated UTI: X-ray KUB shows nonobstructing stone, obtain CT-UTS, consult urology in a.m., get urine culture, blood culture, aggressive hydration 1 L bolus followed by 150-200 mL per hour, trend lactic acid, continue ceftriaxone, adequate pain control. Previously patient had grown Citrobacter. Nothing by mouth daily CT results, and then accordingly if patient may require urology procedure. #2 elevated creatinine: Baseline not known. Patient had elevated creatinine in the past but then decreased to 1.1 upon discharge. Continue aggressive hydration at this point, hold ACEI, metformin. Repeat CBCs BMP in a.m. #3 hold ACEI/ARB, hold metformin, glimepiride. Continue sliding scale insulin. Continue hydration. #4 BPH : Currently patient not on any medications, patient's frequency in urination, nocturia, urgency may be related to prostate as well, consider starting meds on discharge. #5 DVT prophylaxis: Alps
--- NOTE | 2016-06-03 04:30 | NUR ---
THIRD LITER NS INFUSING AT 150 ML/HR.
--- NOTE | 2016-06-03 04:33 | Admission Certification ---
Admission Certification Certification Statement - As attending physician, I certify that at the time of - admission, based on clinical presentation, severity of - symptoms, need for further diagnostic testing and - therapeutic interventions, and risk of adverse outcomes - without in-hospital treatment, in my clinical assessment, - this patient requires an acute hospital stay for a minimum - of two nights or longer. I have also considered psychsocial - factors such as support system, advanced age, financial - issues, cognitive issues, and failed out-patient treatments, - past re-admission history, safety of patient, and lack of - compliance as applicable. Specific rationale supporting this admission is: Complicated UTI, sepsis
--- NOTE | 2016-06-03 06:46 | CT SCAN REPORT ---
EXAMINATION: CT ABDOMEN AND PELVIS WITHOUT CONTRAST CLINICAL INFORMATION: Back pain. Presumptive diagnosis of nephrolithiasis. COMPARISON: KUB dated 06/03/2016. CT scan of the abdomen and pelvis dated 05/05/2016 and 05/24/2015. TECHNIQUE: Multidetector volumetric imaging was performed from the superior aspect of the liver through the pubic symphysis. Sagittal and coronal reformatted images were obtained on the technologist workstation. DLP: 1061.09 mGy-cm. FINDINGS: LUNG BASES: Mild bibasilar atelectatic changes. LIVER, GALLBLADDER, AND BILIARY TREE: The liver is normal in size, shape, and attenuation. No focal hepatic lesion on noncontrast imaging. No biliary ductal dilatation is present. The gallbladder is decompressed but appears unremarkable with no evidence of radiopaque gallstones, gallbladder wall thickening, or obvious pericholecystic inflammatory changes. PANCREAS, SPLEEN, ADRENAL GLANDS: Unremarkable on noncontrast imaging. KIDNEYS AND URETERS: There is persistent mild enlargement of the left kidney compared to the right kidney with moderate perinephric stranding and mild left-sided hydroureteronephrosis despite adequate positioning of a double-J left ureteral stent, which extends from the upper pole infundibula to the bladder. The left perinephric stranding extends along the left ureter into the pelvis. In the distal left ureter, approximately 1.2 cm from the ureterovesical junction, a 0.6 x 0.2 cm calcification is seen posterior to the ureteral stent (series 2, image 66), consistent with a small dependently positioned distal left ureteral calculus. This is new when compared to the prior exams. The right ureter is decompressed and no right ureteral calculi or hydroureteronephrosis is seen. There are multiple bilateral nonobstructing renal calculi seen, with mean attenuation values ranging up to 442 Hounsfield units, larger and more numerous in the right kidney. In both kidneys, the lower pole calculi appear nearly confluent with a branching configuration, suggesting early staghorn calculi. Largest calcification cluster in the right kidney is in the lower pole, measuring 1.3 x 0.5 cm, more confluent in appearance than on 05/24/2015. The largest calcification cluster in the left kidney is also in the lower pole, measuring 1.4 x 0.5 cm, new compared to 05/24/2015 and larger compared to 0.9 x 0.5 cm on 05/05/2016. There is an exophytic thin-walled 4.5 x 4.6 x 4.9 cm mid right renal low-attenuation mass, unchanged in size dating back to 05/24/2015. The mean attenuation values have, however, increased from simple cystic to 27 Hounsfield units, suggesting interval mild hemorrhagic transformation. There may be a subtle 0.9 cm minimally hypodense mass in the lower pole cortex of the right kidney (series 602, image 75), demonstrating faint discontinuous peripheral rim calcifications, poorly appreciated on the current and the previous exams. The previous contrast-enhanced CT scan from 05/05/2016 had demonstrated additional small mid right renal low-attenuation masses, which are not as well appreciated on this noncontrast study, but appears similar in size, measuring 1.2 cm and 0.7 cm in size. BLADDER: Mildly diffusely thick walled in appearance, similar to prior studies, likely reflecting bladder wall hypertrophy from chronic bladder outlet obstruction by an enlarged heterogeneous prostate gland. GASTROINTESTINAL TRACT: Scattered colonic diverticula are seen, most concentrated in the distal descending colon and proximal sigmoid colon. No evidence of acute diverticulitis. The small bowel is decompressed and unremarkable. The appendix is unremarkable. ABDOMINAL WALL: There is a small fat-containing umbilical hernia. LYMPH NODES, VASCULAR: No significant abdominal or pelvic adenopathy or free fluid collection is seen. Aorta is normal in caliber with moderate atherosclerotic calcification of the distal aorta and iliac vessels. PELVIC VISCERA: Prostate gland is enlarged and heterogeneous and impresses upon the bladder base, measuring 5.9 x 5.0 x 5.9 cm. Seminal vesicles bilaterally are enlarged and symmetric. OSSEOUS STRUCTURES: Multilevel vacuum disc phenomenon, disc space narrowing, vertebral endplate sclerosis and spurring is seen throughout the imaged thoracolumbar spine. Mild facet arthropathy is seen in the lower lumbar spine. IMPRESSION: 1. Persistent mild left-sided hydroureteronephrosis with a new 0.6 x 0.2 cm calcification seen posterior to the distal ureteral stent, approximately 1.2 cm from the ureterovesical junction. 2. No right-sided hydroureteronephrosis. 3. Multiple bilateral renal calculi, progressive in size compared to 05/24/2015. 4. Dominant right mid renal cyst now appears mildly hyperdense, suggesting interval hemorrhage into the cyst. Other right renal masses are poorly characterized as discussed above. 5. Mild bladder wall hypertrophy related to chronic outlet obstruction from an heterogeneous enlarged prostate gland. 6. Colonic diverticulosis.
--- NOTE | 2016-06-03 06:53 | NUR ---
MEDICATED WITH 4 UNITS REG INSULIN SC FOR NPO FINGERSTICK 188
--- NOTE | 2016-06-03 07:57 | NUR ---
0830 LABS DRAWN AND SENT
--- NOTE | 2016-06-03 08:06 | NUR ---
CARE OF PATIENT ASSUMED. PO MED GIVEN. PT ASSISTED OUT OF BED. PT INFORMED THAT SHE IS NPO AT THIS TIME.
--- NOTE | 2016-06-03 08:59 | PN- Urology ---
Surgical Brief Attending Note Brief Attending Note: Informed of patient's admission. Labs and CT scan reviewed. Urine appears infected. L ureteral stent in good position and no significant hydronephrosis. Treatment at this point is IV abx. No plans to change L ureteral stent at this time. He is scheduled for surgery on Monday to remove the L ureteral stones but this will likely be post poned. Full consult to follow
--- NOTE | 2016-06-03 09:40 | PN- Housestaff ---
Subjective Follow-up For: Sepsis of urological origin, with left sided hydroureteronephrosis Subjective: I assessed the patient today. he is resting comfortably in his bed, and has no complaints at this time. IV fluids running, patient was curious about urinary tract infection, questions to which were answered by me partially, as he wanted to ask about the plan with stones as well. No issues overnight. Review of Systems Constitutional: Reports: see HPI. EENTM: Reports: no symptoms. Cardiovascular: Reports: no symptoms. Respiratory: Reports: no symptoms. Gastrointestinal: Reports: no symptoms. Genitourinary: Reports: see HPI. Musculoskeletal: Reports: no symptoms. Skin: Reports: no symptoms. Neurological/Psychological: Reports: no symptoms. Hematologic/Endocrine: Reports: no symptoms. Objective Last 24 Hrs of Vital Signs/I&O Vital Signs Date Time Temp Pulse Resp B/P Pulse O2 O2 Flow FiO2 Ox Delivery Rate 06/03 1333 97.6 88 18 102/56 94 Room Air 06/03 1052 99.2 86 18 99/59 95 Room Air 06/03 0758 100.2 101 18 108/62 94 06/03 0442 100.7 107 18 126/67 95 Room Air 06/03 0132 99.2 78 18 96/51 97 Room Air 06/02 2108 99.1 120 18 141/77 97 Room Air Intake & Output 06/03 1600 06/03 0800 06/03 0000 Intake Total 1000 Output Total Balance 1000 Intake, IV 1000 Patient 97.976 kg Weight Physical Exam General Appearance: Alert, Oriented X3, Cooperative, No Acute Distress Other Physical Findings: Skin No Rashes, No Breakdown, No Significant Lesion HEENT Atraumatic, PERRLA, EOMI, Mucous Membr. moist/pink Neck Supple, No JVD, No thryomegaly Lymphatic Axillary nl, Cervical nl Cardiovascular Regular Rate, Normal S1, Normal S2, No Murmurs Lungs Clear to Auscultation, Normal Air Movement Abdomen Normal Bowel Sounds, Soft, CVA Tenderness+, No Hepatospenomegaly, No Masses Neurological Strength at 5/5 X4 Ext, Normal Tone, Sensation Intact, Cranial Nerves 3-12 NL, Reflexes 2+ Extremities No Clubbing, No Cyanosis, No Edema, Normal Pulses, No Tenderness/ Swelling Vascular Normal Pulses, Pulses Symmetric Current Medications: Current Medications Sig/Harini Start time Last Medication Dose Route Stop Time Status Admin Alprazolam 0.25 MG TID PRN 06/03 0515 AC PO 06/10 0514 Atorvastatin Calcium 10 MG 1700 06/03 1700 AC PO Cefazolin Sodium 0 .STK-MED ONE 06/02 2356 DC .ROUTE Cefazolin Sodium 1,000 MG ONCE ONE 06/02 2345 DC 06/03 IV 06/02 2346 0010 Ceftriaxone Sodium 0 .STK-MED ONE 06/03 1023 DC .ROUTE Ceftriaxone Sodium 1,000 MG DAILY 06/03 1000 AC 06/03 IV 1050 Hydromorphone HCl 0 .STK-MED ONE 06/02 2354 DC .ROUTE Hydromorphone HCl 1 MG ONCE ONE 06/02 2345 DC IV 06/02 2346 Insulin Aspart 0 TIDAC 06/03 1200 AC 06/03 SC 1206 Insulin Detemir 10 UNITS DAILY 06/03 1000 AC 06/03 SC 1050 Insulin Human Regular 0 Q6 06/03 0600 DC 06/03 SC 0653 Ketorolac 0 .STK-MED ONE 06/02 235 DC Tromethamine .ROUTE Ketorolac 30 MG ONCE ONE 06/02 2345 DC 06/03 Tromethamine IV 06/02 2346 0010 Omeprazole 0 .STK-MED ONE 06/03 0704 DC PO Omeprazole 20 MG DAILY AC 06/03 0700 AC 06/03 PO 0758 Sodium Chloride 1,000 ML BOLUS ONE 06/03 0130 DC 06/03 IV 06/03 0229 0315 Sodium Chloride 1,000 ML Q13H 06/03 0115 AC 06/03 IV 1454 Sodium Chloride 1,000 ML BOLUS ONE 06/02 2345 DC 06/03 IV 06/03 0044 0010 Last 24 Hrs of Lab/Osvaldo Results Last 24 Hrs of Labs/Mics: Laboratory Tests 06/03/16 1530: Anion Gap 10, Estimated GFR 46 L, BUN/Creatinine Ratio 26.7 H, CBC w Diff MAN DIFF ORDERED, WBC Pending, RBC Pending, Hgb Pending, Hct Pending, MCV Pending, MCH Pending, RDW Pending, Plt Count Pending, MPV Pending, Gran % Pending, Lymphocytes % Pending, Monocytes % Pending, Eosinophils % Pending, Basophils % Pending, Absolute Granulocytes Pending, Segmented Neutrophils Pending, Absolute Lymphocytes Pending, Absolute Monocytes Pending, Absolute Eosinophils Pending, Absolute Basophils Pending, [facility] MCHC Pending 06/03/16 0804: Lactic Acid Cancelled 06/03/16 0754: Anion Gap 7, Estimated GFR 46 L, BUN/Creatinine Ratio 27.3 H, Lactic Acid 1.3 06/03/16 0441: Lactic Acid 2.5 H 06/03/16 0156: Lactic Acid 3.4 H 06/02/162128: Anion Gap 15, Estimated GFR 50 L, BUN/Creatinine Ratio 30.0 H, Glucose 267 H, Calcium 10.2, Total Bilirubin 0.8, AST 22, ALT 35, Alkaline Phosphatase 65, Total Protein 7.6, Albumin 4.8, Globulin 2.8, Albumin/Globulin Ratio 1.7, CBC w Diff MAN DIFF ORDERED, RBC 5.64, MCV 80.5, MCH 25.8 L, RDW 15.2 H, MPV 7.7, Gran % 90.3 H, Lymphocytes % 6.6 L, Monocytes % 2.9, Eosinophils % 0.2, Basophils % 0 L, Absolute Granulocytes 16.3 H, Absolute Lymphocytes 1.2, Absolute Monocytes 0.5, Absolute Eosinophils 0, Absolute Basophils 0, Platelet Estimate ADEQUATE, Normocytic RBCs VERIFIED, Normochromic RBCs VERIFIED, Polychromasia 1+, Anisocytosis 1+, [facility] MCHC 32.0 L 06/02/162119: Urine Color YEL, Urine Clarity CLDY H, Urine pH 6.0, Ur Specific [place] 1.020, Urine Protein 100 H, Urine Ketones NEG, Urine Nitrite POS H, Urine Bilirubin NEG, Urine Urobilinogen 0.2, Ur Leukocyte Esterase MOD H, Ur Microscopic SEDIMENT EXAMINED, Urine RBC 15-25 H, Urine WBC PACKD H, Ur Epithelial Cells FEW, Urine Bacteria MANY H, Urine Mucus MOD H, Urine Hemoglobin MOD H, Urine Glucose 250 H Microbiology 06/03 0203 BLOOD: Blood Culture - RECD 06/04 155 BLOOD: Blood Culture - RECD 06/03 2119 URINE ROUT: Urine Culture - RECD Assessment/Plan Assessment: This is a 75-year-old male with past medical history significant for hypertension, hyperlipidemia, GERD, diabetes mellitus, anxiety, nephrolithiasis, UTI twice in the past, history of ureteral stones, left ureteral stent placement in the past, and enlarged prostate presented to emergency department with a chief complaint of fever, chills, back pain, burning urination for one day. Patient reported history of UTIs twice in the last month. He was admitted at [facility] on 05/05/2016 for left ureteral stone status post left ureteral stent placement. He was advised to get his stent removed on June 06/2017. His urine grew gram-negative rods Citrobacter in May 2016. Vital signs on admission: Temperature 99.1, pulse rate 120, respiratory rate 18, blood pressure 141/77, oxygen saturation 97% on room air Pertinent lab: Leukocytosis to 18 with granulocytosis. Sodium 135, potassium 5.3, creatinine 1.4, GFR 50, glucose 267, lactic acid 3.4>> 2.5 Urine analysis-cloudy, nitrites and esterase positive, packed WBC, bacteriuria Pertinent imaging: KUB x-ray:The position of the left ureteral stent remains unchanged. No definite calcification is visualized along the expected course of the left ureter. A nonobstructing calculus within a lower pole calyx left kidney is redemonstrated. Problem list 1. Acute pyelonephritis/complicated UTI 2. Sepsis of urologic origin 3. Elevated creatinine 4. Hypertension 5. Hyperlipidemia 6. GERD 7. Diabetes mellitus 8. Anxiety #Acute pyelonephritis/complicated UTI Impression presented with fever 100.8, chills, nausea, burning urination, frequency, dysuria and urgency. He has past medical history significant for UTIs. Recent left ureteral stent placement. X-ray show nonobstructive calculus in the lower pole of the kidney. Pyelonephritis possibly secondary to complicated UTI and ureteral stones * Admitted to general medicine floor for further management * Monitor vitals closely * Maintain oxygen saturation above 97% * F/u Urine cultures * F/u Blood cultures * CT abdomen: showed b/l stones, hydroureteronephrosis, and a stone measuring 6mm x 2mm near VUJ on left side where the stent is in * IV fluids decreased from 150ml/hr to 75ml/hr * Pain management * IV antibiotics ceftriaxone * Urology was consulted, got a prelim note so far. Any surgical intervention planned earlier has been postponed, including removal of stent, and agrees to IV abx and IVF plans for now. #Sepsis of urologic origin Patient fulfilled sepsis criteria on admission tachycardic, leukocytosis. Source of infection urine, x-ray findings suggestive of ureteral calculus * Monitor vitals closely * Lactic acid elevated on admission, repeat was normal on third time * Continue IV fluids #Elevated creatinine: Level was 1.1 in May 2016 upon discharge, will continue IV hydration. Hold Irbesartan and metformin. Repeat levels in the morning. #Diabetes: Accu-Cheks, Will continue the patient on Levemir 10 units daily. Will hold metformin and maintain the patient on insulin sliding scale while inpatient. #Hyperkalemia: Potassium mildly elevated to 5.3, asymptomatic. Will recheck levels in the morning. #Hypertension irbesartan on hold because of elevated creatinine #Hyperlipidemia Continue statins #GERD Continue Nexium #Anxiety Continue xanax #Patient was instructed to hold his home medications of aspirin, fish oil and flax oil 1 week before his procedure which was scheduled on this Monday. We will continue to hold above medications; consult urology. DVT prophylaxis-alps npo Full code Problem List: 1. UTI (urinary tract infection) 2. Renal colic on left side 3. History of renal calculi 4. Prerenal azotemia Pain Ratin Pain Location: left flank Pain Goal: Pain 4 or less Pain Plan: prn meds ordered Tomorrow's Labs & Rationales: CBC, BEP for f/u of sepsis and electrolyte disbalance
--- NOTE | 2016-06-03 09:48 | NUR ---
LUNCH ORDERED FOR PATIENT. PT GOT BACK TO BED, RESTING COMFORTABLY
--- NOTE | 2016-06-03 11:00 | NUR ---
PT HELPED OUT OF BED, PT IS STABLE, JUST NEEDED HELP WITH THE IV POLE. VOIDING WITHOUT DIFFICULTY AND REPORTS HE IS PAIN FREE. ANTIBIOTICS GIVEN IV ORDERED. AT BEDSIDE, WILL CONTINUE TO MONITOR
--- NOTE | 2016-06-03 11:51 | NUR ---
PT OUT OF BED TO CHAIR. PT REQUESTED COFFEE - BROUGHT HIM SOUP. PT HAS NO COMPLAINTS
--- NOTE | 2016-06-03 14:42 | NUR ---
PT TOLERATED LUNCH. PT REMAINS IN THE CHAIR. PT AND ARE UNSURE OF NEED FOR ADMISSION AND WOULD LIKE TO DISCUSS PLAN WITH UROLOGY.
--- NOTE | 2016-06-03 15:17 | PN- Att Addend ---
Attending MD Review Statement Attending Statement Attending MD Statement: examined this patient, discuss w/resident/PA/ACCOUNTS RECEIVABLE MANAGER, agreed w/resident/PA/ACCOUNTS RECEIVABLE MANAGER, discussed with family, reviewed EMR data (avail) Attending Assessment/Plan: Laboratory Tests 06/03/16 0804: Lactic Acid Cancelled 06/03/16 0754: Anion Gap 7, Estimated GFR 46 L, BUN/Creatinine Ratio 27.3 H, Lactic Acid 1.3 06/03/16 0441: Lactic Acid 2.5 H 06/03/16 0156: Lactic Acid 3.4 H 06/02/162128: Anion Gap 15, Estimated GFR 50 L, BUN/Creatinine Ratio 30.0 H, Glucose 267 H, Calcium 10.2, Total Bilirubin 0.8, AST 22, ALT 35, Alkaline Phosphatase 65, Total Protein 7.6, Albumin 4.8, Globulin 2.8, Albumin/Globulin Ratio 1.7, CBC w Diff MAN DIFF ORDERED, RBC 5.64, MCV 80.5, MCH 25.8 L, RDW 15.2 H, MPV 7.7, Gran % 90.3 H, Lymphocytes % 6.6 L, Monocytes % 2.9, Eosinophils % 0.2, Basophils % 0 L, Absolute Granulocytes 16.3 H, Absolute Lymphocytes 1.2, Absolute Monocytes 0.5, Absolute Eosinophils 0, Absolute Basophils 0, Platelet Estimate ADEQUATE, Normocytic RBCs VERIFIED, Normochromic RBCs VERIFIED, Polychromasia 1+, Anisocytosis 1+, PUBS MCHC 32.0 L 06/02/162119: Urine Color YEL, Urine Clarity CLDY H, Urine pH 6.0, Ur Specific [place] 1.020, Urine Protein 100 H, Urine Ketones NEG, Urine Nitrite POS H, Urine Bilirubin NEG, Urine Urobilinogen 0.2, Ur Leukocyte Esterase MOD H, Ur Microscopic SEDIMENT EXAMINED, Urine RBC 15-25 H, Urine WBC PACKD H, Ur Epithelial Cells FEW, Urine Bacteria MANY H, Urine Mucus MOD H, Urine Hemoglobin MOD H, Urine Glucose 250 H Vital Signs Date Time Temp Pulse Resp B/P Pulse O2 O2 Flow FiO2 Ox Delivery Rate 06/03 1333 97.6 88 18 102/56 94 Room Air 06/03 1052 99.2 86 18 99/59 95 Room Air 06/03 0758 100.2 101 18 108/62 94 06/03 0442 100.7 107 18 126/67 95 Room Air 06/03 0132 99.2 78 18 96/51 97 Room Air 06/02 2108 99.1 120 18 141/77 97 Room Air 75-year-old male with past medical history significant for hypertension, hyperlipidemia, GERD, diabetes mellitus, anxiety, nephrolithiasis, UTI twice in the past, history of ureteral stones, left ureteral stent placement on 05/05/16 and enlarged prostate presented to emergency department with a chief complaint of fever, chills and dysuria. Patient finished his antibiotic course about 10 days ago. Patient in emergency room was found to have sepsis with a high white count and lactic acidosis and fever and urinary tract infection. He was given IV fluids and his lactic acid has returned to normal. We will continue with IV ceftriaxone for now. Will follow up in urology recommendations. We will repeat his white count today. Given his recent antibiotic course and the urological procedure if he spikes fever and his white count is not getting better we will have to broaden his antibiotic coverage. Discussed with patient as well as his family at bedside the care plan
--- NOTE | 2016-06-03 15:30 | NUR ---
ASSUMED CARE OF PT. REPORT RECIEVED FROM ERIC Farrell RN
[2016-06-03 15:45] LABS: ABSOLUTE BASOPHIL COUNT 0 /CUMM (0.0-0.2); ABSOLUTE EOSINOPHIL COUNT 0 /CUMM (0.0-0.7); ABSOLUTE MONOCYTE COUNT 0.7 /CUMM (0.10-0.60); MEAN PLATELET VOLUME 7.9 FL (7.4-10.4); WHITE BLOOD CELL COUNT 17.1 /CUMM (4.8-10.8)
[2016-06-03 15:49] LABS: ABSOLUTE GRANULOCYTE CT 15.2 /CUMM (1.4-6.5); ABSOLUTE LYMPH COUNT 1.1 /CUMM (1.2-3.4); BASOPHIL % 0.1 % (0.0-2.0); EOSINOPHIL % 0.1 % (0-5); GRANULOCYTE % 88.9 % (42.2-75.2); MEAN CORPUSCULAR HGB 26.3 PG (27.0-31.0); MEAN CORPUSCULAR VOLUME 79.8 FL (80.0-94.0); PLATELET COUNT 188 /CUMM (130-400); RBC DISTRIBUTION WIDTH 15.1 % (11.5-14.5); RED BLOOD CELL CT 4.64 /CUMM (4.70-6.10)
--- NOTE | 2016-06-03 16:10 | NUR ---
PT RESTING QUIELTY. STATES HE FEELS VERY RELAXED
--- NOTE | 2016-06-03 17:28 | NUR ---
REPORT CALLED TO [facility] ON [facility]
--- NOTE | 2016-06-03 18:00 | NUR ---
ADMISSION NOTE: PT ARRIVED TO FLOOR IN STRETCHER WITH DISTRIBUTION A/OX3, ROOM AIR, IV INTACT, FLUIDS RUNNING PER MD ORDER, REPORTING NO PAIN, DENIES N/V, FEVER 102.3, MD MCADAMS NOTIFIED, TYLENOL ORDERED AND ADMINISTERED,HOUR LATER RECHECH TEMP WAS 100.0. PT REPORTED ANXIETY, XANAX 0.25MG GIVEN. WILL CONTINUE TO MONITOR.
[2016-06-03 18:10] VITALS: BP 148/80
--- NOTE | 2016-06-03 20:40 | Cons- Urology ---
General Information and HPI Consulting Request Date of Consult: 06/03/16 Requested By: Robyn Moreno MD,JESSICA Murillo Reason for Consult: urinary stones and fever Source of Information: patient, old records Exam Limitations: no limitations History of Present Illness: This patient has a hx of urinary stones. In early May 2016 he presented to the ER and was found to have bilateral renal stones as well as a L ureteral stone and hydronephrosis. At that time his urine appeared infected. He underwent L ureteral stent placement and was scheduled for L ureteroscopy on 06/06. He presented to the ER today with a 1 day hx of fever. He has been having urinary frequency and dysuria. In the ER U/A was c/w UTI. CT scan showed bilateral renal stones. A L ureteral stone was seen. The L ureteral stent was in good position. There was susana-ureteral and perinephric stranding. Allergies/Medications Allergies: Coded Allergies: hydromorphone (From DILAUDID) (Mild, PT REPORTS DOES NOT LIKE THE WAY IT MAKES HIM FEEL 06/03/16) aspirin (325 MG / GI UPSET 06/01/16) Home Med List: Alprazolam (Xanax) 0.5 MG TABLET 1 TAB PO TIDPRN ANXIETY (Reported) Aspirin (Ecotrin*) 81 MG TABLET.DR 1 TAB PO DAILY HEART HEALTH (Reported) Atorvastatin Calcium 20 MG TABLET 0.5 TAB PO DAILY CHOLESTEROL (Reported) Esomeprazole Magnesium (Nexium) 20 MG CAPSULE.DR 1 CAP PO DAILY GI (Reported) Flaxseed Oil (Flax Oil) 1,000 MG CAPSULE 1 CAP PO DAILY SUPPLEMENT (Reported) Insulin Detemir (Levemir Flextouch) 100 UNIT/ML (3 ML) INSULN.PEN 10 UNITS SC DAILY DM II (Reported) TAKES AT 5 PM Irbesartan 150 MG TABLET 1 TAB PO DAILY HEART (Reported) Metformin HCl 1,000 MG TABLET 1 TAB PO BID DM (Reported) Multivitamin (Daily Multiple Vitamin) 1 EACH TABLET 1 TAB PO DAILY SUPPLEMENT (Reported) Current Medications: Current Medications Sig/Harini Start time Last Medication Dose Route Stop Time Status Admin Acetaminophen 650 MG Q4P PRN 06/03 1830 AC 06/03 PO 1828 Alprazolam 0.25 MG TID PRN 06/03 0515 AC 06/03 PO 04/07 0514 1921 Atorvastatin Calcium 10 MG 1700 06/03 1700 AC 06/03 PO 1906 Cefazolin Sodium 0 .STK-MED ONE 06/02 2356 DC .ROUTE Cefazolin Sodium 1,000 MG ONCE ONE 06/02 2345 DC 06/03 IV 06/02 2346 0010 Ceftriaxone Sodium 0 .STK-MED ONE 06/03 1023 DC .ROUTE Ceftriaxone Sodium 1,000 MG DAILY 06/03 1000 AC 06/03 IV 1050 Hydromorphone HCl 0 .STK-MED ONE 06/02 2354 DC .ROUTE Hydromorphone HCl 1 MG ONCE ONE 06/02 2345 DC IV 06/02 2346 Insulin Aspart 0 TIDAC 06/03 1200 AC 06/03 SC 1906 Insulin Detemir 10 UNITS DAILY 06/03 1000 AC 06/03 SC 1050 Insulin Human Regular 0 Q6 06/03 0600 DC 06/03 SC 0653 Ketorolac 0 .STK-MED ONE 06/02 2355 DC Tromethamine .ROUTE Ketorolac 30 MG ONCE ONE 06/02 2345 DC 06/03 Tromethamine IV 06/02 2346 0010 Omeprazole 0 .STK-MED ONE 06/03 0704 DC PO Omeprazole 20 MG DAILY AC 06/03 0700 AC 06/03 PO 0758 Sodium Chloride 1,000 ML BOLUS ONE 06/03 0130 DC 06/03 IV 06/03 0229 0315 Sodium Chloride 1,000 ML Q13H 06/03 0115 AC 06/03 IV 1454 Sodium Chloride 1,000 ML BOLUS ONE 06/02 2345 DC 06/03 IV 06/03 0044 0010 Past History Medical History Blood Transfusion Hx: No Neurological: NONE EENT: NONE Cardiovascular: hypertension, hyperlipidemia Respiratory: NONE Gastrointestinal: GERD Hepatic: NONE Renal: nephrolithiasis Musculoskeletal: NONE Psychiatric: NONE Endocrine: diabetes Surgical History Pertinent Surgical History: none Psychosocial History Where Do You Live? Home Services at Home: None Smoking Status: Former Smoker ETOH Use: denies use Illicit Drug Use: denies illicit drug use Exam & Diagnostic Data Vital Signs and I&O Vital Signs Date Time Temp Pulse Resp B/P Pulse O2 O2 Flow FiO2 Ox Delivery Rate 06/03 2032 99.4 06/03 2030 Room Air Room Air 06/03 1828 102.3 06/03 1809 102.3 94 22 148/80 92 Room Air 06/03 1704 99.5 86 18 119/62 96 Room Air 06/03 1333 97.6 88 18 102/56 94 Room Air 06/03 1052 99.2 86 18 99/59 95 Room Air 06/03 0758 100.2 101 18 108/62 94 06/03 0442 100.7 107 18 126/67 95 Room Air 06/03 0132 99.2 78 18 96/51 97 Room Air 06/02 2108 99.1 120 18 141/77 97 Room Air Intake & Output 06/03 1600 06/03 0800 06/03 0000 06/02 1600 06/02 0800 06/02 0000 Intake Total 1000 Output Total Balance 1000 Intake, IV 1000 Patient 216 lb Weight No acute distress Back: No CVA tenderness Abd: soft and non tender Genitalia: normal male Laboratory Tests 06/03 06/03 06/03 1530 0804 0754 Chemistry Sodium (137 - 145 mmol/L) 133 L 130 L Potassium (3.5 - 5.1 mmol/L) 4.9 4.7 Chloride (98 - 107 mmol/L) 104 105 Carbon Dioxide (22 - 30 mmol/L) 19 L 18 L Anion Gap (5 - 16) 10 7 BUN (9 - 20 mg/dL) 40 H 41 H Creatinine (0.7 - 1.2 mg/dL) 1.5 H 1.5 H Estimated GFR (>60 ml/min) 46 L 46 L BUN/Creatinine Ratio (7 - 25 %) 26.7 H 27.3 H Lactic Acid (0.7 - 2.1 mmol/L) Cancelled 1.3 Hematology CBC w Diff MAN DIFF ORDERED WBC (4.8 - 10.8 /CUMM) 17.1 H RBC (4.70 - 6.10 /CUMM) 4.64 L Hgb (14.0 - 18.0 G/DL) 12.2 L Hct (42 - 52 %) 37.0 L MCV (80.0 - 94.0 FL) 79.8 L MCH (27.0 - 31.0 PG) 26.3 L RDW (11.5 - 14.5 %) 15.1 H Plt Count (130 - 400 /CUMM) 188 MPV (7.4 - 10.4 FL) 7.9 Gran % (42.2 - 75.2 %) 88.9 H Lymphocytes % (20.5 - 51.1 %) 6.6 L Monocytes % (1.7 - 9.3 %) 4.3 Eosinophils % (0 - 5 %) 0.1 Basophils % (0.0 - 2.0 %) 0.1 Absolute Granulocytes (1.4 - 6.5 /CUMM) 15.2 H Segmented Neutrophils (42.2 - 75.2 %) 80 H Band Neutrophils (0.0 - 5.0 %) 6 H Absolute Lymphocytes (1.2 - 3.4 /CUMM) 1.1 L Lymphocytes (20.5 - 51.1 %) 9 L Monocytes (1.7 - 9.3 %) 4 Absolute Monocytes (0.10 - 0.60 /CUMM) 0.7 H Eosinophils (0 - 5.0 %) 1 Absolute Eosinophils (0.0 - 0.7 /CUMM) 0 Absolute Basophils (0.0 - 0.2 /CUMM) 0 Platelet Estimate (ADEQUATE) ADEQUATE Poikilocytosis 1+ Coral Cells 1+ Elliptocytes 1+ PUBS MCHC (33.0 - 37.0 G/DL) 33.0 06/03 06/03 06/02 0441 0156 2129 Chemistry Sodium (137 - 145 mmol/L) 131 L Potassium (3.5 - 5.1 mmol/L) 5.3 H Chloride (98 - 107 mmol/L) 96 L Carbon Dioxide (22 - 30 mmol/L) 20 L Anion Gap (5 - 16) 15 BUN (9 - 20 mg/dL) 42 H Creatinine (0.7 - 1.2 mg/dL) 1.4 H Estimated GFR (>60 ml/min) 50 L BUN/Creatinine Ratio (7 - 25 %) 30.0 H Glucose (65 - 99 mg/dL) 267 H Lactic Acid (0.7 - 2.1 mmol/L) 2.5 H 3.4 H Calcium (8.4 - 10.2 mg/dL) 10.2 Total Bilirubin (0.2 - 1.3 mg/dL) 0.8 AST (17 - 59 U/L) 22 ALT (21 - 72 U/L) 35 Alkaline Phosphatase (< 127 U/L) 65 Total Protein (6.3 - 8.2 g/dL) 7.6 Albumin (3.5 - 5.0 g/dL) 4.8 Globulin (1.9 - 4.2 gm/dL) 2.8 Albumin/Globulin Ratio (1.1 - 2.2 %) 1.7 Hematology CBC w Diff MAN DIFF ORDERED WBC (4.8 - 10.8 /CUMM) 18.0 H RBC (4.70 - 6.10 /CUMM) 5.64 Hgb (14.0 - 18.0 G/DL) 14.5 Hct (42 - 52 %) 45.4 MCV (80.0 - 94.0 FL) 80.5 MCH (27.0 - 31.0 PG) 25.8 L RDW (11.5 - 14.5 %) 15.2 H Plt Count (130 - 400 /CUMM) 257 MPV (7.4 - 10.4 FL) 7.7 Gran % (42.2 - 75.2 %) 90.3 H Lymphocytes % (20.5 - 51.1 %) 6.6 L Monocytes % (1.7 - 9.3 %) 2.9 Eosinophils % (0 - 5 %) 0.2 Basophils % (0.0 - 2.0 %) 0 L Absolute Granulocytes (1.4 - 6.5 /CUMM) 16.3 H Absolute Lymphocytes (1.2 - 3.4 /CUMM) 1.2 Absolute Monocytes (0.10 - 0.60 /CUMM) 0.5 Absolute Eosinophils (0.0 - 0.7 /CUMM) 0 Absolute Basophils (0.0 - 0.2 /CUMM) 0 Platelet Estimate (ADEQUATE) ADEQUATE Normocytic RBCs VERIFIED Normochromic RBCs VERIFIED Polychromasia 1+ Anisocytosis 1+ PUBS MCHC (33.0 - 37.0 G/DL) 32.0 L 06/03 2119 Urines Urine Color (YEL,AMB,STR) YEL Urine Clarity (CLEAR) CLDY H Urine pH (5.0 - 8.0) 6.0 Ur Specific [place] (1.001 - 1.035) 1.020 Urine Protein (NEG,<30 MG/DL) 100 H Urine Ketones (NEG) NEG Urine Nitrite (NEG) POS H Urine Bilirubin (NEG) NEG Urine Urobilinogen (0.1 - 1.0 EU/dl) 0.2 Ur Leukocyte Esterase (NEG) MOD H Ur Microscopic SEDIMENT EXAMINED Urine RBC (0 - 5 /HPF) 15-25 H Urine WBC (0 - 2 /HPF) PACKD H Ur Epithelial Cells (NONE,FEW) FEW Urine Bacteria (NEG/NONE) MANY H Urine Mucus (FEW,NONE) MOD H Urine Hemoglobin (NEG) MOD H Urine Glucose (N MG/DL) 250 H Assessment/Plan Assessment/Plan Imp: 1. UTI 2. Bilateral renal calculi, non obstructing 3. L ureteral calculus/calculi 4. s/p L ureteral stent 5. Prostatic hypertrophy Plan: 1. Agree with Ceftriaxone 2. f/u cultures and adjust abx accordingly 3. Will cancel L ureteroscopy for Monday 4. Will attempt to schedule L ureteroscopy toward end of antibiotic course Consult Acknowledgment - Thank you for your consult request.
[2016-06-03 22:43] VITALS: BP 120/65
[2016-06-04 07:11] VITALS: BP 122/60
[2016-06-04 08:17] LABS: ABSOLUTE BASOPHIL COUNT 0 /CUMM (0.0-0.2); ABSOLUTE EOSINOPHIL COUNT 0.1 /CUMM (0.0-0.7); ABSOLUTE GRANULOCYTE CT 9.9 /CUMM (1.4-6.5); ABSOLUTE LYMPH COUNT 1.3 /CUMM (1.2-3.4); ABSOLUTE MONOCYTE COUNT 0.6 /CUMM (0.10-0.60); BASOPHIL % 0.4 % (0.0-2.0); EOSINOPHIL % 0.7 % (0-5); GRANULOCYTE % 82.7 % (42.2-75.2); HEMATOCRIT 34.2 % (42-52); MEAN CORPUSCULAR HGB 26.3 PG (27.0-31.0); MEAN CORPUSCULAR HGB CONC 32.9 G/DL (33.0-37.0); MEAN CORPUSCULAR VOLUME 79.9 FL (80.0-94.0); MEAN PLATELET VOLUME 8.3 FL (7.4-10.4); PLATELET COUNT 164 /CUMM (130-400); RBC DISTRIBUTION WIDTH 15.6 % (11.5-14.5); RED BLOOD CELL CT 4.27 /CUMM (4.70-6.10); WHITE BLOOD CELL COUNT 11.9 /CUMM (4.8-10.8)
--- NOTE | 2016-06-04 09:05 | PN- Housestaff ---
See Addendum Subjective Follow-up For: Sepsis of urological origin Hydroureteronephrosis Subjective: Elyssa is seen and examined bedside. Does not endorse any acute complaints including fever, chills, increased dysuria, abdominal pain, nausea, vomiting, chest pain, palpitation, shortness of breath, or dizziness. No acute event reported by nursing staff. Review of Systems Constitutional: Reports: no symptoms. Objective Last 24 Hrs of Vital Signs/I&O Vital Signs Date Time Temp Pulse Resp B/P Pulse O2 O2 Flow FiO2 Ox Delivery Rate 06/04 1537 99.2 78 22 126/60 94 Room Air 06/04 1101 99.9 06/04 0711 99.7 90 20 122/60 95 Room Air 06/03 2243 98.1 78 22 120/65 97 Room Air 06/03 2033 99.4 06/03 2031 Room Air Room Air 06/03 1927 100.0 06/03 1828 102.3 06/03 1810 102.3 94 22 148/80 92 Room Air 06/03 1704 99.5 86 18 119/62 96 Room Air Intake & Output 06/04 1600 06/04 0800 06/04 0000 Intake Total 1170 900 975 Output Total 200 1800 300 Balance 970 -900 675 Intake, IV 450 600 375 Intake, Oral 720 300 600 Output, Urine 200 1800 300 Patient 97.522 kg Weight Physical Exam General Appearance: Alert, Oriented X3, Cooperative Other Physical Findings: Skin No Rashes, No Breakdown, No Significant Lesion HEENT Atraumatic, PERRLA, EOMI, Mucous Membr. moist/pink Neck Supple, No JVD, No thryomegaly Lymphatic Axillary nl, Cervical nl Cardiovascular Regular Rate, Normal S1, Normal S2, No Murmurs Lungs Clear to Auscultation, Normal Air Movement Abdomen Normal Bowel Sounds, Soft, CVA Tenderness+, No Hepatospenomegaly, No Masses Neurological Strength at 5/5 X4 Ext, Normal Tone, Sensation Intact, Cranial Nerves 3-12 NL, Reflexes 2+ Extremities No Clubbing, No Cyanosis, No Edema, Normal Pulses, No Tenderness/ Swelling Vascular Normal Pulses, Pulses Symmetric Assessment/Plan Assessment: his is a 75-year-old male with past medical history significant for hypertension , hyperlipidemia, GERD, diabetes mellitus, anxiety, nephrolithiasis, UTI twice in the past, history of ureteral stones, left ureteral stent placement in the past, and enlarged prostate presented to emergency department with a chief complaint of fever, chills, back pain, burning urination for one day. Patient reported history of UTIs twice in the last month. He was admitted at [facility] on 05/05/2016 for left ureteral stone status post left ureteral stent placement. He was advised to get his stent removed on June 06/2017. His urine grew gram-negative rods Citrobacter in May 2016. Vital signs on admission: Temperature 99.1, pulse rate 120, respiratory rate 18, blood pressure 141/77, oxygen saturation 97% on room air Pertinent lab: Leukocytosis to 18 with granulocytosis. Sodium 135, potassium 5.3, creatinine 1.4, GFR 50, glucose 267, lactic acid 3.4>> 2.5 Urine analysis-cloudy, nitrites and esterase positive, packed WBC, bacteriuria Pertinent imaging: KUB x-ray:The position of the left ureteral stent remains unchanged. No definite calcification is visualized along the expected course of the left ureter. A nonobstructing calculus within a lower pole calyx left kidney is redemonstrated. Problem list 1. Acute pyelonephritis/complicated UTI 2. Sepsis of urologic origin 3. Elevated creatinine 4. Hypertension 5. Hyperlipidemia 6. GERD 7. Diabetes mellitus 8. Anxiety #Acute pyelonephritis/complicated UTI Impression presented with fever 100.8, chills, nausea, burning urination, frequency, dysuria and urgency. He has past medical history significant for UTIs. Recent left ureteral stent placement. X-ray show nonobstructive calculus in the lower pole of the kidney. Pyelonephritis possibly secondary to complicated UTI and ureteral stones * Preliminary cultures growing gram-negative rods, however on the 40,000 colonies per mL. Patient is already on ceftriaxone. Leukocytosis downtrending however patient has not been afebrile and dysuria free for more than 24 hours. We'll continue with ceftriaxone for now. * Blood cultures are currently negative. * CT abdomen: showed b/l stones, hydroureteronephrosis, and a stone measuring 6mm x 2mm near VUJ on left side where the stent is in * IV fluids decreased from 150ml/hr to 75ml/hr * Pain management * Will continue to follow urology recommendation (appreciated) #Sepsis of urologic origin Patient fulfilled sepsis criteria on admission tachycardic, leukocytosis. Source of infection urine, x-ray findings suggestive of ureteral calculus. There is post ureter stent placement. * Monitor vitals closely * Lactic acid elevated on admission, repeat was normal on third time * Adequate urine output with creatinine improving, will continue IV fluid for now and stop by the end of today as patient continues to improve his fluid intake (currently 70%) #Elevated creatinine: Level was 1.1 in May 2016 upon discharge, will continue IV hydration. Hold Irbesartan and metformin. Repeat levels in the morning. #Diabetes: Accu-Cheks, Will continue the patient on Levemir 10 units daily. Will hold metformin and maintain the patient on insulin sliding scale while inpatient. #Hyperkalemia: Potassium mildly elevated to 5.3, asymptomatic. Will recheck levels in the morning. #Hypertension irbesartan on hold because of elevated creatinine #Hyperlipidemia Continue statins #GERD Continue Nexium #Anxiety Continue xanax #Patient was instructed to hold his home medications of aspirin, fish oil and flax oil 1 week before his procedure which was scheduled on this Monday. We will continue to hold above medications; consult urology. Problem List: 1. UTI (urinary tract infection) Pain Ratin Pain Location: back Pain Goal: Remain pain free Pain Plan: Pain pathway Tomorrow's Labs & Rationales: BEP-trend snow
--- NOTE | 2016-06-04 09:06 | PN- Housestaff ---
Assessment/Plan Assessment: This is a 75-year-old male with past medical history significant for hypertension, hyperlipidemia, GERD, diabetes mellitus, anxiety, nephrolithiasis, UTI twice in the past, history of ureteral stones, left ureteral stent placement in the past, and enlarged prostate presented to emergency department with a chief complaint of fever, chills, back pain, burning urination for one day. Patient reported history of UTIs twice in the last month. He was admitted at [facility] on 05/05/2016 for left ureteral stone status post left ureteral stent placement. He was advised to get his stent removed on June 06/2017. His urine grew gram-negative rods Citrobacter in May 2016. Vital signs on admission: Temperature 99.1, pulse rate 120, respiratory rate 18, blood pressure 141/77, oxygen saturation 97% on room air Pertinent lab: Leukocytosis to 18 with granulocytosis. Sodium 135, potassium 5.3, creatinine 1.4, GFR 50, glucose 267, lactic acid 3.4>> 2.5 Urine analysis-cloudy, nitrites and esterase positive, packed WBC, bacteriuria Pertinent imaging: KUB x-ray:The position of the left ureteral stent remains unchanged. No definite calcification is visualized along the expected course of the left ureter. A nonobstructing calculus within a lower pole calyx left kidney is redemonstrated. Problem list 1. Acute pyelonephritis/complicated UTI 2. Sepsis of urologic origin 3. Elevated creatinine 4. Hypertension 5. Hyperlipidemia 6. GERD 7. Diabetes mellitus 8. Anxiety #Acute pyelonephritis/complicated UTI Impression presented with fever 100.8, chills, nausea, burning urination, frequency, dysuria and urgency. He has past medical history significant for UTIs. Recent left ureteral stent placement. X-ray show nonobstructive calculus in the lower pole of the kidney. Pyelonephritis possibly secondary to complicated UTI and ureteral stones * Admitted to general medicine floor for further management * Monitor vitals closely * Maintain oxygen saturation above 97% * F/u Urine cultures * F/u Blood cultures * CT abdomen: showed b/l stones, hydroureteronephrosis, and a stone measuring 6mm x 2mm near VUJ on left side where the stent is in * IV fluids decreased from 150ml/hr to 75ml/hr * Pain management * IV antibiotics ceftriaxone * Urology was consulted, got a prelim note so far. Any surgical intervention planned earlier has been postponed, including removal of stent, and agrees to IV abx and IVF plans for now. #Sepsis of urologic origin Patient fulfilled sepsis criteria on admission tachycardic, leukocytosis. Source of infection urine, x-ray findings suggestive of ureteral calculus * Monitor vitals closely * Lactic acid elevated on admission, repeat was normal on third time * Continue IV fluids #Elevated creatinine: Level was 1.1 in May 2016 upon discharge, will continue IV hydration. Hold Irbesartan and metformin. Repeat levels in the morning. #Diabetes: Accu-Cheks, Will continue the patient on Levemir 10 units daily. Will hold metformin and maintain the patient on insulin sliding scale while inpatient. #Hyperkalemia: Potassium mildly elevated to 5.3, asymptomatic. Will recheck levels in the morning. #Hypertension irbesartan on hold because of elevated creatinine #Hyperlipidemia Continue statins #GERD Continue Nexium #Anxiety Continue xanax #Patient was instructed to hold his home medications of aspirin, fish oil and flax oil 1 week before his procedure which was scheduled on this Monday. We will continue to hold above medications; consult urology. DVT prophylaxis-alps npo Full code
[2016-06-04 15:37] VITALS: BP 126/60
[2016-06-04 22:12] VITALS: BP 124/68
--- NOTE | 2016-06-04 22:52 | NUR ---
PATIENT CALLED ME IN STATING THAT HE FEELS "BLOATED" "FULL OF FLUID" AND FEELS THAT HIS BREATHING IS SHALLOW. NO C/O CHEST PAIN OR SOB, DOES NOT APPEAR TO BE IN DISTRESS. NO EDEMA TO BLE NOTED. O2 SATS WERE 97, HR 74. LUNGS WERE CLEAR. DR KOBI ORTEZ WAS IN POD, HAD HER COME AND ASSESS PATIENT. PATIENT REFUSED NEB TXs. STATES HE JUST WANTS TO SLEEP, HE MIGHT BE OVERTHINKING THINGS. OFFERED HIM HIS 0.25 XANAX, WHICH HE TOOK. CONTINUE TO MONITOR.
[2016-06-05 06:44] VITALS: BP 146/78
--- NOTE | 2016-06-05 07:48 | PN- Housestaff ---
KIZZY VALLES,MARTIN 06/05/16 0748: Subjective Follow-up For: Urinary tract infection, Urinary tract stones Bilateral renal stones Complaints: occasional flank pain Subjective: Followed up and examined the patient today, patient is resting comfortably in a chair, does not offer any complaints except occasional flank pains mostly on the left side, vitals have been stable, he has been afebrile, no issues overnight He is wondering if any procedure is planned for him during this admission and was expecting urology for further guidance Review of Systems Constitutional: Reports: no symptoms. Cardiovascular: Reports: no symptoms. Respiratory: Reports: no symptoms. Gastrointestinal: Reports: no symptoms. Genitourinary: Reports: see HPI. Musculoskeletal: Reports: back pain. Skin: Reports: no symptoms. Neurological/Psychological: Reports: no symptoms. Hematologic/Endocrine: Reports: no symptoms. Objective Last 24 Hrs of Vital Signs/I&O Vital Signs Date Time Temp Pulse Resp B/P Pulse O2 O2 Flow FiO2 Ox Delivery Rate 06/05 1456 99.1 84 20 124/60 95 Room Air 06/05 0644 98.8 74 20 146/78 97 06/05 0059 97.8 / 2212 97.8 74 20 124/68 95 Room Air Intake & Output 06/05 1600 / 0800 06/05 0000 Intake Total 763 229 0882 Output Total 825 650 Balance 840 -25 950 Intake, IV 600 600 Intake, Oral 275 297 6206 Output, Urine 825 650 Physical Exam General Appearance: Alert, Oriented X3, Cooperative, No Acute Distress Other Physical Findings: Skin No Rashes, No Breakdown, No Significant Lesion HEENT Atraumatic, PERRLA, EOMI, Mucous Membr. moist/pink Neck Supple, No JVD, No thryomegaly Lymphatic Axillary nl, Cervical nl Cardiovascular Regular Rate, Normal S1, Normal S2, No Murmurs Lungs Clear to Auscultation, Normal Air Movement Abdomen Normal Bowel Sounds, Soft, CVA Tenderness+ mostly on left side than right, No Hepatospenomegaly, No Masses Neurological Strength at 5/5 X4 Ext, Normal Tone, Sensation Intact, Cranial Nerves 3-12 NL, Reflexes 2+ Extremities No Clubbing, No Cyanosis, No Edema, Normal Pulses, No Tenderness/ Swelling Vascular Normal Pulses, Pulses Symmetric Current Medications: Current Medications Sig/Harini Start time Last Medication Dose Route Stop Time Status Admin Acetaminophen 650 MG Q4P PRN 06/03 1830 AC 06/04 PO 1859 Alprazolam 0.25 MG TID PRN 06/03 0515 AC 06/05 PO 06/10 0514 2116 Atorvastatin Calcium 10 MG 1700 06/03 1700 AC 06/05 PO 1738 Ceftriaxone Sodium 1,000 MG DAILY 06/03 1000 AC 06/05 IV 1039 Docusate Sodium 100 MG BID 06/04 1207 AC 06/05 PO 2116 Insulin Aspart 0 TIDAC 06/03 1200 AC 06/05 SC 1323 Insulin Detemir 10 UNITS DAILY 06/03 1000 AC 06/05 SC 1039 Omeprazole 20 MG DAILY AC 06/03 0700 AC 06/05 PO 0538 Polyethylene Glycol 17 GM DAILY 06/04 1206 AC 06/05 PO 1039 Ramelteon 8 MG AT BEDTIME NEED.. 06/04 1924 AC 06/04 PO 2018 Sodium Chloride 1,000 ML Q13H 06/03 0115 DC 06/04 IV 06/05 0000 1713 Last 24 Hrs of Lab/Osvaldo Results Last 24 Hrs of Labs/Mics: Laboratory Tests 06/05/16 0656: Anion Gap 7, Estimated GFR > 60, BUN/Creatinine Ratio 17.3, CBC w Diff NO MAN DIFF REQ, RBC 4.45 L, MCV 79.1 L, MCH 26.1 L, RDW 15.1 H, MPV 8.7, Gran % 79.2 H, Lymphocytes % 11.0 L, Monocytes % 7.4, Eosinophils % 2.0, Basophils % 0.4, Absolute Granulocytes 7.1 H, Absolute Lymphocytes 1.0 L, Absolute Monocytes 0.7 H, Absolute Eosinophils 0.2, Absolute Basophils 0, PUBS MCHC 33.0 Assessment/Plan Assessment: This is a 75-year-old male with past medical history significant for hypertension, hyperlipidemia, GERD, diabetes mellitus, anxiety, nephrolithiasis, UTI twice in the past, history of ureteral stones, left ureteral stent placement in the past, and enlarged prostate presented to emergency department with a chief complaint of fever, chills, back pain, burning urination for one day. Patient reported history of UTIs twice in the last month. He was admitted at [facility] on 05/05/2016 for left ureteral stone status post left ureteral stent placement. He was advised to get his stent removed on June 06/2017. His urine grew gram-negative rods Citrobacter in May 2016. Vital signs on admission: Temperature 99.1, pulse rate 120, respiratory rate 18, blood pressure 141/77, oxygen saturation 97% on room air Pertinent lab: Leukocytosis to 18 with granulocytosis. Sodium 135, potassium 5.3, creatinine 1.4, GFR 50, glucose 267, lactic acid 3.4>> 2.5 Urine analysis-cloudy, nitrites and esterase positive, packed WBC, bacteriuria Pertinent imaging: KUB x-ray:The position of the left ureteral stent remains unchanged. No definite calcification is visualized along the expected course of the left ureter. A nonobstructing calculus within a lower pole calyx left kidney is redemonstrated. Problem list 1. Acute pyelonephritis/complicated UTI 2. Sepsis of urologic origin 3. Elevated creatinine 4. Hypertension 5. Hyperlipidemia 6. GERD 7. Diabetes mellitus 8. Anxiety #Acute pyelonephritis/complicated UTI Impression presented with fever 100.8, chills, nausea, burning urination, frequency, dysuria and urgency. He has past medical history significant for UTIs. Recent left ureteral stent placement. X-ray show nonobstructive calculus in the lower pole of the kidney. Pyelonephritis possibly secondary to complicated UTI and ureteral stones * Preliminary cultures growing gram-negative rods, however on the 40,000 colonies per mL. Patient is already on ceftriaxone. Leukocytosis downtrending however patient has not been afebrile and dysuria free for more than 24 hours. We'll continue with ceftriaxone for now. * Blood cultures are currently negative. * CT abdomen: showed b/l stones, hydroureteronephrosis, and a stone measuring 6mm x 2mm near VUJ on left side where the stent is in * IV fluids stopped * Pain management * Will continue to follow urology recommendation. Need to ask whether urology service is planning for any procedure during this admission or waiting for sepsis to resolve and plan an outpatient procedure. Also need to know in that case, to change IV antibiotics to oral form. #Sepsis of urologic origin, resolving Patient fulfilled sepsis criteria on admission tachycardic, leukocytosis. Source of infection urine, x-ray findings suggestive of ureteral calculus. There is post ureter stent placement. * Monitor vitals closely * Lactic acid elevated on admission, repeat was normal on third time #Elevated creatinine: Level was 1.1 in May 2016 upon discharge, will continue IV hydration. Hold Irbesartan and metformin. Repeat levels in the morning. today it is 1.1, baseline. #Diabetes: Accu-Cheks, Will continue the patient on Levemir 10 units daily. Will hold metformin and maintain the patient on insulin sliding scale while inpatient. #Hyperkalemia: Potassium today is 4.5, asymptomatic. Will recheck levels in the morning. #Hypertension irbesartan on hold because of elevated creatinine, is getting back to baseline 1.1 -BP has been within normal range. will continue to monitor, to restart his BP meds, as his creatinine is improving too. #Hyperlipidemia Continue statin #GERD Continue Nexium #Anxiety Continue xanax #Patient was instructed to hold his home medications of aspirin, fish oil and flax oil 1 week before his procedure which was scheduled on this Monday. We will continue to hold above medications; consult urology. Problem List: 1. UTI (urinary tract infection) 2. History of renal calculi 3. Renal colic on left side Pain Ratin Pain Location: flank, more on left side Pain Goal: Pain 4 or less Pain Plan: prn Tomorrow's Labs & Rationales: CBC, BEP ROSELIA VALLES,AMIR 06/05/16 1239: Attending MD Review Statement Attending Statement Attending MD Statement: examined this patient, discuss w/resident/PA/CAMP RECREATION SPECIALIST, agreed w/resident/PA/CAMP RECREATION SPECIALIST, discussed with family, reviewed EMR data (avail), discussed with nursing Attending Assessment/Plan: Pt was seen and evaluated , remain afebrile, need to discuss with Urology as family asking if procedure can be done as inpatient. If OK with Urology can switch to PO abx. rest of the plan as per resident's note
[2016-06-05 08:18] LABS: ABSOLUTE BASOPHIL COUNT 0 /CUMM (0.0-0.2); ABSOLUTE EOSINOPHIL COUNT 0.2 /CUMM (0.0-0.7); ABSOLUTE GRANULOCYTE CT 7.1 /CUMM (1.4-6.5); ABSOLUTE MONOCYTE COUNT 0.7 /CUMM (0.10-0.60); BASOPHIL % 0.4 % (0.0-2.0); GRANULOCYTE % 79.2 % (42.2-75.2); HEMATOCRIT 35.2 % (42-52); MEAN CORPUSCULAR HGB 26.1 PG (27.0-31.0); MEAN CORPUSCULAR VOLUME 79.1 FL (80.0-94.0); MEAN PLATELET VOLUME 8.7 FL (7.4-10.4); PLATELET COUNT 180 /CUMM (130-400); RBC DISTRIBUTION WIDTH 15.1 % (11.5-14.5); RED BLOOD CELL CT 4.45 /CUMM (4.70-6.10)
[2016-06-05 14:56] VITALS: BP 124/60
[2016-06-05 21:44] VITALS: BP 122/64
[2016-06-06 06:42] VITALS: BP 140/70
--- NOTE | 2016-06-06 07:34 | PN- Housestaff ---
KIZZY VALLES,MARTIN 06/06/16 0733: Subjective Follow-up For: Urinary tract infection Renal stones Complaints: intermittant flank pain Subjective: Followed up and examined the patient today. He is stable, still has pain intermittently, vitals have been stable, is sad/curious about his planned surgery that is taking longer than expected Review of Systems Constitutional: Reports: no symptoms. Cardiovascular: Reports: no symptoms. Respiratory: Reports: no symptoms. Gastrointestinal: Reports: no symptoms. Genitourinary: Reports: see HPI. Musculoskeletal: Reports: back pain (old problem). Objective Last 24 Hrs of Vital Signs/I&O Vital Signs Date Time Temp Pulse Resp B/P Pulse O2 O2 Flow FiO2 Ox Delivery Rate 06/06 1547 98.4 70 18 138/70 95 Room Air 06/06 0642 98.4 79 18 140/70 97 Room Air 06/05 2144 98.4 72 20 122/64 95 Room Air Intake & Output 06/06 1600 06/06 0800 06/06 0000 Intake Total 840 240 240 Output Total 450 Balance 840 -210 240 Intake, Oral 840 240 240 Output, Urine 450 Physical Exam General Appearance: Alert, Oriented X3, Cooperative, No Acute Distress Other Physical Findings: Skin No Rashes, No Breakdown, No Significant Lesion HEENT Atraumatic, PERRLA, EOMI, Mucous Membr. moist/pink Neck Supple, No JVD, No thryomegaly Lymphatic Axillary nl, Cervical nl Cardiovascular Regular Rate, Normal S1, Normal S2, No Murmurs Lungs Clear to Auscultation, Normal Air Movement Abdomen Normal Bowel Sounds, Soft, CVA Tenderness+ mostly on left side than right, No Hepatospenomegaly, No Masses Neurological Strength at 5/5 X4 Ext, Normal Tone, Sensation Intact, Cranial Nerves 3-12 NL, Reflexes 2+ Extremities No Clubbing, No Cyanosis, No Edema, Normal Pulses, No Tenderness/ Swelling Vascular Normal Pulses, Pulses Symmetric Current Medications: Current Medications Sig/Harini Start time Last Medication Dose Route Stop Time Status Admin Acetaminophen 650 MG Q4P PRN 06/03 1830 AC 06/04 PO 1859 Alprazolam 0.25 MG TID PRN 06/03 0515 AC 06/05 PO 06/10 0514 2116 Atorvastatin Calcium 10 MG 1700 06/03 1700 AC 06/06 PO 1746 Ceftriaxone Sodium 1,000 MG DAILY 06/03 1000 AC 06/06 IV 1126 Docusate Sodium 100 MG BID 06/04 1207 AC 06/06 PO 1126 Insulin Aspart 0 TIDAC 06/03 1200 AC 06/06 SC 1745 Insulin Detemir 10 UNITS DAILY 06/03 1000 AC 06/06 SC 1125 Omeprazole 20 MG DAILY AC 06/03 0700 AC 06/06 PO 0654 Patient Medication 1 ED .STK-MED ONE 06/06 1353 OR Teaching ED 06/06 1354 Phenylephrine HCl 1 ROSSI Q6P PRN 06/06 1130 AC 06/06 VT 1746 Polyethylene Glycol 17 GM DAILY 06/04 1206 AC 06/05 PO 1039 Ramelteon 8 MG AT BEDTIME NEED.. 06/04 1924 AC 06/04 PO 2018 Last 24 Hrs of Lab/Osvaldo Results Last 24 Hrs of Labs/Mics: Laboratory Tests 06/06/16 0640: Anion Gap 7, Estimated GFR > 60, BUN/Creatinine Ratio 17.3, CBC w Diff NO MAN DIFF REQ, RBC 4.56 L, MCV 79.2 L, MCH 26.2 L, RDW 15.6 H, MPV 8.4, Gran % 67.7, Lymphocytes % 20.3 L, Monocytes % 9.1, Eosinophils % 2.5, Basophils % 0.4 , Absolute Granulocytes 4.4, Absolute Lymphocytes 1.3, Absolute Monocytes 0.6, Absolute Eosinophils 0.2, Absolute Basophils 0, PUBS MCHC 33.0 Assessment/Plan Assessment: This is a 75-year-old male with past medical history significant for hypertension, hyperlipidemia, GERD, diabetes mellitus, anxiety, nephrolithiasis, UTI twice in the past, history of ureteral stones, left ureteral stent placement in the past, and enlarged prostate presented to emergency department with a chief complaint of fever, chills, back pain, burning urination for one day. Patient reported history of UTIs twice in the last month. He was admitted at [facility] on 05/05/2016 for left ureteral stone status post left ureteral stent placement. He was advised to get his stent removed on June 06/2017. His urine grew gram-negative rods Citrobacter in May 2016. Vital signs on admission: Temperature 99.1, pulse rate 120, respiratory rate 18, blood pressure 141/77, oxygen saturation 97% on room air Pertinent lab: Leukocytosis to 18 with granulocytosis. Sodium 135, potassium 5.3, creatinine 1.4, GFR 50, glucose 267, lactic acid 3.4>> 2.5 Urine analysis-cloudy, nitrites and esterase positive, packed WBC, bacteriuria Pertinent imaging: KUB x-ray:The position of the left ureteral stent remains unchanged. No definite calcification is visualized along the expected course of the left ureter. A nonobstructing calculus within a lower pole calyx left kidney is redemonstrated. Problem list 1. Acute pyelonephritis/complicated UTI 2. Sepsis of urologic origin 3. Elevated creatinine 4. Hypertension 5. Hyperlipidemia 6. GERD 7. Diabetes mellitus 8. Anxiety #Acute pyelonephritis/complicated UTI Impression presented with fever 100.8, chills, nausea, burning urination, frequency, dysuria and urgency. He has past medical history significant for UTIs. Recent left ureteral stent placement. X-ray show nonobstructive calculus in the lower pole of the kidney. Pyelonephritis possibly secondary to complicated UTI and ureteral stones * Urine culture grew site of active, which is sensitive to everything tested, except for ampicillin. The patient is currently on IV ceftriaxone, which is also sensitive. Will continue that with oral transition tomorrow. * Blood cultures are currently negative. * CT abdomen: showed b/l stones, hydroureteronephrosis, and a stone measuring 6mm x 2mm near VUJ on left side where the stent is in * IV fluids stopped * Pain management * Will continue to follow urology recommendation. Patient is due to get his procedure done while still on antibiotic, not sure the date or time, but maybe later this week, according to urology. #Sepsis of urologic origin, resolving Patient fulfilled sepsis criteria on admission tachycardic, leukocytosis. Source of infection urine, x-ray findings suggestive of ureteral calculus. There is post ureter stent placement. * Monitor vitals closely * Lactic acid elevated on admission, repeat was normal on third time #Elevated creatinine: Level was 1.1 in May 2016 upon discharge, will continue IV hydration. Hold Irbesartan and metformin. Repeat levels in the morning. today it is 1.1, baseline. #Diabetes: Accu-Cheks, Will continue the patient on Levemir 10 units daily. Will hold metformin and maintain the patient on insulin sliding scale while inpatient. #Hyperkalemia: Potassium today is 4.9, asymptomatic. Will recheck levels in the morning. #Hypertension irbesartan on hold because of elevated creatinine initially, is getting back to baseline 1.1 -BP has been within normal range. will continue to monitor, to restart his BP meds, as his creatinine is improving too. #Hyperlipidemia Continue statin #GERD Continue Nexium #Anxiety Continue xanax #Patient was instructed to hold his home medications of aspirin, fish oil and flax oil 1 week before his procedure which was scheduled on this Monday. We will continue to hold above medications; consult urology. Problem List: 1. UTI (urinary tract infection) 2. Renal colic on left side Pain Ratin Pain Location: left flank Pain Goal: Pain 4 or less Pain Plan: prn Tomorrow's Labs & Rationales: BEP to monitor electrolytes BRENDA VALLES,PAOLA 06/06/16 1540: Attending MD Review Statement Attending Statement Attending MD Statement: examined this patient, discuss w/resident/PA/BOW MAKER [employer]ODUCTION, agreed w/resident/PA/[employer], discussed with family, reviewed EMR data (avail), discussed with nursing, discussed with case mgmt, amended to note Attending Assessment/Plan: Patient seen and examined. Sitting up in his chair. Complains of mild low back pain which is chronic. Denies dysuria. Denies hematuria. He is afebrile and hemodynamically stable. Case was discussed with the urology service. Recommendations are to continue antibiotic therapy. Anticipation is for patient to return to the ER later on this week for removal of ureteral stones and exchange of left ureteral stent.
--- NOTE | 2016-06-06 07:36 | PN- Urology ---
Subjective Subjective: Feels much better Objective Vital Signs and I&Os Vital Signs Date Time Temp Pulse Resp B/P Pulse O2 O2 Flow FiO2 Ox Delivery Rate 06/06 0642 98.4 79 18 140/70 97 Room Air 06/05 2144 98.4 72 20 122/64 95 Room Air 06/05 1456 99.1 84 20 124/60 95 Room Air Intake & Output 06/06 0800 06/06 0000 06/05 1600 06/05 0800 06/05 0000 06/04 1600 Intake Total 240 240 601 741 0620 1170 Output Total 450 825 650 200 Balance -210 240 840 -25 950 970 Intake, IV 600 600 450 Intake, Oral 240 240 217 772 9893 720 Output, Urine 450 825 650 200 Seated in chair comfortably wbc count is now normal and creat is down to 1.1. Urine C&S positive for klebsiella. Blood cultures neg to date Assessment/Plan Assessment/Plan Imp: 1. Complicated UTI, improved 2. L ureteral stone(s) 3. Bilateral renal stones Plan: 1. Probable transition to po abx soon 2. Will attempt to schedule for L ureteroscopy, laser litho with removal of L ureteral stones and exchange of L ureteral stent later this week, as in or out patient, while still on abx
[2016-06-06 08:17] LABS: ABSOLUTE BASOPHIL COUNT 0 /CUMM (0.0-0.2); ABSOLUTE EOSINOPHIL COUNT 0.2 /CUMM (0.0-0.7); ABSOLUTE GRANULOCYTE CT 4.4 /CUMM (1.4-6.5); ABSOLUTE LYMPH COUNT 1.3 /CUMM (1.2-3.4); ABSOLUTE MONOCYTE COUNT 0.6 /CUMM (0.10-0.60); BASOPHIL % 0.4 % (0.0-2.0); EOSINOPHIL % 2.5 % (0-5); GRANULOCYTE % 67.7 % (42.2-75.2); HEMATOCRIT 36.2 % (42-52); MEAN CORPUSCULAR HGB 26.2 PG (27.0-31.0); MEAN CORPUSCULAR VOLUME 79.2 FL (80.0-94.0); MEAN PLATELET VOLUME 8.4 FL (7.4-10.4); PLATELET COUNT 214 /CUMM (130-400); RBC DISTRIBUTION WIDTH 15.6 % (11.5-14.5); RED BLOOD CELL CT 4.56 /CUMM (4.70-6.10); WHITE BLOOD CELL COUNT 6.6 /CUMM (4.8-10.8)
[2016-06-06 15:47] VITALS: BP 138/70
--- NOTE | 2016-06-06 18:41 | Patient Discharge Instructions ---
Discharge Instructions General Discharge Information You were seen/treated for: Sepsis, secondary to urinary tract infection Urinary tract stones Special Instructions: Please visit your primary care physician within 7-10 days after discharge. Please follow-up with your urologist within 7 days after discharge regarding removal of ureteral stent. Please return to emergency if symptoms worsen. Diet Continue normal diet: No Recommended Diet: Diabetic Activity Full Activity/No Limits: No Activity Self Limited: Yes Acute Coronary Syndrome Inclusion Criteria At DC or during hospital stay patient has or had the following: ACS DIAGNOSIS No Discharge Core Measures Meds if any: Prescribed or Continued at Discharge Meds if any: NOT Prescribed or Continued at Discharge Congestive Heart Failure Inclusion Criteria At DC or during hospital stay patient has or had the following: CHF DIAGNOSIS No Discharge Core Measures Meds if any: Prescribed or Continued at Discharge Meds if any: NOT Prescribed or Continued at Discharge Cerebrovascular accident Inclusion Criteria At DC or during hospital stay patient has or had the following: CVA/TIA Diagnosis No Discharge Core Measures Meds if any: Prescribed or Continued at Discharge Meds if any: NOT Prescribed or Continued at Discharge Venous thromboembolism Inclusion Criteria VTE Diagnosis No VTE Type NONE VTE Confirmed by (Test) NONE Discharge Core Measures - Per Current guidelines, there needs to be overlap - treatment for the first 5 days of Warfarin therapy. - If discharged on Warfarin prior to 5 days of - overlap therapy, the patient will need to be - assessed for post discharge needs including - *Post discharge parental anticoagulation - *Warfarin and/or parental anticoagulation education - *Follow up date to check INR post discharge At least 5 days overlap therapy as Inpatient No Meds if any: Prescribed or Continued at Discharge Note: Overlap Therapy is Warfarin and Anticoagulant Meds if any: NOT Prescribed or Continued at Discharge
[2016-06-06 22:11] VITALS: BP 136/68
--- NOTE | 2016-06-07 06:47 | PN- Housestaff ---
KIZZY VALLES,MARTIN 06/07/16 0647: Subjective Follow-up For: UTI urinary tract stones Complaints: mild pain over lower anterior abdomen Subjective: Followed up and examined the patient today, patient not in acute distress, vitals have been stable overnight, no overnight issues. Patient does complain that he still has intermittent mild to moderate lower abdominal pain anteriorly, and has occasional left flank pain. This is a decrease from what she initially came in with. He is awaiting his surgery per urology as soon as possible. Review of Systems Constitutional: Reports: no symptoms. Cardiovascular: Reports: no symptoms. Respiratory: Reports: no symptoms. Gastrointestinal: Reports: no symptoms. Genitourinary: Reports: see HPI. Musculoskeletal: Reports: see HPI. Neurological/Psychological: Reports: no symptoms. Objective Last 24 Hrs of Vital Signs/I&O Vital Signs Date Time Temp Pulse Resp B/P Pulse O2 O2 Flow FiO2 Ox Delivery Rate 06/07 1445 97.9 95 20 144/68 97 Room Air 06/07 0716 97.8 68 20 140/78 98 Room Air 06/06 2211 98.4 71 18 136/68 95 Intake & Output 06/07 1600 06/07 0800 06/07 0000 Intake Total 120 240 Output Total Balance 120 240 Intake, Oral 120 240 Patient 97.522 kg Weight Physical Exam General Appearance: Alert, Oriented X3, Cooperative, No Acute Distress Other Physical Findings: Skin No Rashes, No Breakdown, No Significant Lesion HEENT Atraumatic, PERRLA, EOMI, Mucous Membr. moist/pink Neck Supple, No JVD, No thryomegaly Lymphatic Axillary nl, Cervical nl Cardiovascular Regular Rate, Normal S1, Normal S2, No Murmurs Lungs Clear to Auscultation, Normal Air Movement Abdomen Normal Bowel Sounds, Soft, CVA Tenderness+ mildly over L>R, No Hepatospenomegaly, No Masses, NON TENDER ANTERIORLY. (LEXUS) RECTAL EXAM: has external hemorrhoid between 12 and 3 o'clock position, mildly tender, no open wound, no inflammation around it, and at the tip/top of the hemorrhoid, black/dark small area is visible suggestive of hematoma (? thrombosis), no skin damage Neurological Strength at 5/5 X4 Ext, Normal Tone, Sensation Intact, Cranial Nerves 3-12 NL, Reflexes 2+ Extremities No Clubbing, No Cyanosis, No Edema, Normal Pulses, No Tenderness/ Swelling Vascular Normal Pulses, Pulses Symmetric Current Medications: Current Medications Sig/Harini Start time Last Medication Dose Route Stop Time Status Admin Acetaminophen 650 MG Q4P PRN 06/03 1830 AC 06/04 PO 1859 Alprazolam 0.25 MG TID PRN 06/03 0515 AC 06/06 PO 06/10 0514 2240 Atorvastatin Calcium 10 MG 1700 06/03 1700 AC 06/06 PO 1746 Ceftriaxone Sodium 1,000 MG DAILY 06/03 1000 DC 06/06 IV 1126 Cephalexin 250 MG Q6 06/07 1200 AC 06/07 PO 1311 Dextrose/Sodium 1,000 ML Q13H 06/08 0000 AC Chloride IV Dextrose/Sodium 1,000 ML Q13H 06/07 1015 DC Chloride IV 06/07 2314 Docusate Sodium 100 MG BID 06/04 1207 AC 06/07 PO 1022 Insulin Aspart 0 TIDAC 06/03 1200 AC 06/07 SC 06/07 2340 1311 Insulin Detemir 10 UNITS DAILY 06/03 1000 AC 06/07 SC 1022 Insulin Human Regular 0 Q6 06/07 2359 AC SC Omeprazole 20 MG DAILY AC 06/03 0700 AC 06/07 PO 0804 Phenylephrine HCl 1 ROSSI Q4 06/07 1400 AC 06/07 [place] 1022 Phenylephrine HCl 1 ROSSI Q6P PRN 06/06 1130 AC 06/06 [place] 1746 Polyethylene Glycol 17 GM DAILY 06/04 1206 AC 06/07 PO 1022 Ramelteon 8 MG AT BEDTIME NEED.. 06/04 1924 AC 06/04 PO 2018 Last 24 Hrs of Lab/Osvaldo Results Last 24 Hrs of Labs/Mics: Laboratory Tests 06/07/16 0726: Anion Gap 8, Estimated GFR 59 L, BUN/Creatinine Ratio 16.7 Assessment/Plan Assessment: This is a 75-year-old male with past medical history significant for hypertension, hyperlipidemia, GERD, diabetes mellitus, anxiety, nephrolithiasis, UTI twice in the past, history of ureteral stones, left ureteral stent placement in the past, and enlarged prostate presented to emergency department with a chief complaint of fever, chills, back pain, burning urination for one day. Patient reported history of UTIs twice in the last month. He was admitted at [facility] on 05/05/2016 for left ureteral stone status post left ureteral stent placement. He was advised to get his stent removed on June 06/2017. His urine grew gram-negative rods Citrobacter in May 2016. Vital signs on admission: Temperature 99.1, pulse rate 120, respiratory rate 18, blood pressure 141/77, oxygen saturation 97% on room air; Pertinent lab: Leukocytosis to 18 with granulocytosis. Sodium 135, potassium 5.3, creatinine 1.4, GFR 50, glucose 267, lactic acid 3.4>> 2.5; Urine analysis-cloudy, nitrites and esterase positive, packed WBC, bacteriuria; Pertinent imaging: KUB x-ray:The position of the left ureteral stent remains unchanged. No definite calcification is visualized along the expected course of the left ureter. A nonobstructing calculus within a lower pole calyx left kidney is redemonstrated. Problem list 1. Acute pyelonephritis/complicated UTI 2. Sepsis of urologic origin 3. Elevated creatinine 4. Hypertension 5. Hyperlipidemia 6. GERD 7. Diabetes mellitus 8. Anxiety #Acute pyelonephritis/complicated UTI Patient presented with fever 100.8, chills, nausea, burning urination, frequency , dysuria and urgency. He has past medical history significant for UTIs. Recent left ureteral stent placement. X-ray show nonobstructive calculus in the lower pole of the kidney. Pyelonephritis possibly secondary to complicated UTI and ureteral stones * Urine culture grew Citrobacter, which is sensitive to everything tested, except for ampicillin. The patient had received IV ceftriaxone, which is now converted to Bactrim PO at a renal-adjusted dose * Blood cultures are currently negative. * CT abdomen: showed b/l stones, hydroureteronephrosis, and a stone measuring 6mm x 2mm near VUJ on left side where the stent is in * Pain management * Will continue to follow urology recommendation. Patient is due to get his procedure done while still on antibiotic, most likely tomorrow, and has been placed NPO after midnight with IV fluids. #Sepsis of urologic origin, resolving Patient fulfilled sepsis criteria on admission tachycardic, leukocytosis. Source of infection urine, x-ray findings suggestive of ureteral calculus. There is post ureter stent placement. * Monitor vitals closely * Lactic acid elevated on admission, repeat was normal on third time #External hemorrhoid Continue preparation H cream locally #Elevated creatinine: Level was 1.1 in May 2016 upon discharge. Hold Irbesartan and metformin. Repeat levels in the morning. today it is 1.2, near baseline. #Diabetes: Accu-Cheks regularly Will continue the patient on Levemir 10 units daily. Will hold metformin and maintain the patient on insulin sliding scale while inpatient. #Hyperkalemia: Potassium today is 4.8, asymptomatic. Will recheck levels in the morning. #Hypertension irbesartan on hold because of elevated creatinine initially, is getting back to baseline 1.1 -BP has been within normal range. will continue to monitor, to restart his BP meds, as his creatinine is improving too. #Hyperlipidemia Continue statin #GERD Continue Nexium #Anxiety Continue xanax #Patient was instructed to hold his home medications of aspirin, fish oil and flax oil 1 week before his procedure which was scheduled on this Monday. We will continue to hold above medications; consult urology. #diet- diabetic diet, consistent carbohydrate 3, but patient remains on nothing by mouth from midnight tonight in anticipation of surgery tomorrow. #DVT prophylaxis with ALPS #FULL CODE STATUS. Problem List: 1. UTI (urinary tract infection) 2. Renal colic on left side 3. Ureterolithiasis 4. Kidney stone 5. 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 Resting comfortably and not in acute distress. He does complain of some dysuria. He has been afebrile and hemodynamically stable. His schedule to go to work tomorrow of the urologic intervention. He is quite elated about this. On examination by all staff is found to have what appears to be external hemorrhoids and is bleeding today. Continue topical hydrocortisone ointment. Postprocedure transition patient to Keflex to complete 14 days of antibiotic therapy.
[2016-06-07 07:16] VITALS: BP 140/78
--- NOTE | 2016-06-07 09:34 | PN- Urology ---
Surgical Brief Attending Note Brief Attending Note: Pt afebrile. Being transitioned to po abx. I am attempting to schedule for L ureteroscopy and laser litho for removal of L ureteral stone on . Will update patient and chart when confirmed.
--- NOTE | 2016-06-07 11:57 | PN- Urology ---
Surgical Brief Attending Note Brief Attending Note: Patient is scheduled for L ureteroscopy and laser litho tomorrow morning at 7:30 pending arrival of repaired flexible ureteroscope. Please keep npo after midnight tonight except for po meds with sip
[2016-06-07 14:45] VITALS: BP 144/68
[2016-06-07 22:34] VITALS: BP 140/66
--- NOTE | 2016-06-08 06:12 | NUR ---
NURSING NOTE: PT BLOOD PRESSURE 160/80. PT DENIES PAIN AND OFFERS NO OTHER COMPLAINTS. CHEESEMAKER HELPER 137 MADE AWARE. WILL CONTINUE TO MONITOR.
[2016-06-08 06:58] VITALS: BP 160/80
--- NOTE | 2016-06-08 08:01 | PN- Housestaff ---
KIZZY VALLES,MARTIN 06/08/16 0801: Subjective Follow-up For: Urinary tract infection, nephrolithiasis Complaints: mild ant low abd pain upon voiding urine Subjective: I followed up and examined the patient today. He is resting comfortably in a chair, appears comfortable, not in distress, is nothing by mouth, awaiting his surgery later today. Overnight his vitals have been stable except for increased pressure to a maximum of 160/80, without any other symptoms. No overnight issues otherwise. Review of Systems Constitutional: Reports: no symptoms. Cardiovascular: Reports: no symptoms. Respiratory: Reports: no symptoms. Gastrointestinal: Reports: no symptoms. Genitourinary: Reports: no symptoms. Musculoskeletal: Reports: no symptoms. Skin: Reports: no symptoms. Neurological/Psychological: Reports: no symptoms. Objective Last 24 Hrs of Vital Signs/I&O Vital Signs Date Time Temp Pulse Resp B/P Pulse O2 O2 Flow FiO2 Ox Delivery Rate 06/08 0658 98.2 71 18 160/80 96 Room Air 06/07 2234 97.9 95 19 140/66 97 Intake & Output 06/08 1600 06/08 0800 06/08 0000 Intake Total 620 300 340 Output Total 500 Balance 620 300 -160 Intake, IV 600 300 Intake, Oral 20 0 340 Output, Urine 500 Physical Exam General Appearance: Alert, Oriented X3, Cooperative, No Acute Distress Other Physical Findings: Skin No Rashes, No Breakdown, No Significant Lesion HEENT Atraumatic, PERRLA, EOMI, Mucous Membr. moist/pink Neck Supple, No JVD, No thryomegaly Lymphatic Axillary nl, Cervical nl Cardiovascular Regular Rate, Normal S1, Normal S2, No Murmurs Lungs Clear to Auscultation, Normal Air Movement Abdomen Normal Bowel Sounds, Soft, CVA Tenderness+ mildly over L>R, No Hepatospenomegaly, No Masses, NON TENDER ANTERIORLY. (LEXUS) RECTAL EXAM: done on 06/07/2016:has external hemorrhoid between 12 and 3 o' clock position, mildly tender, no open wound, no inflammation around it, and at the tip/top of the hemorrhoid, black/dark small area is visible suggestive of hematoma (?thrombosis), no skin damage Neurological Strength at 5/5 X4 Ext, Normal Tone, Sensation Intact, Cranial Nerves 3-12 NL, Reflexes 2+ Extremities No Clubbing, No Cyanosis, No Edema, Normal Pulses, No Tenderness/ Swelling Vascular Normal Pulses, Pulses Symmetric Assessment/Plan Assessment: This is a 75-year-old male with past medical history significant for hypertension, hyperlipidemia, GERD, diabetes mellitus, anxiety, nephrolithiasis, UTI twice in the past, history of ureteral stones, left ureteral stent placement in the past, and enlarged prostate presented to emergency department with a chief complaint of fever, chills, back pain, burning urination for one day. Patient reported history of UTIs twice in the last month. He was admitted at [facility] on 05/05/2016 for left ureteral stone status post left ureteral stent placement. He was advised to get his stent removed on June 06/2017. His urine grew gram-negative rods Citrobacter in May 2016. Vital signs on admission: Temperature 99.1, pulse rate 120, respiratory rate 18, blood pressure 141/77, oxygen saturation 97% on room air; Pertinent lab: Leukocytosis to 18 with granulocytosis. Sodium 135, potassium 5.3, creatinine 1.4, GFR 50, glucose 267, lactic acid 3.4>> 2.5; Urine analysis-cloudy, nitrites and esterase positive, packed WBC, bacteriuria; Pertinent imaging: KUB x-ray:The position of the left ureteral stent remains unchanged. No definite calcification is visualized along the expected course of the left ureter. A nonobstructing calculus within a lower pole calyx left kidney is redemonstrated. Problem list 1. Acute pyelonephritis/complicated UTI 2. Sepsis of urologic origin 3. Elevated creatinine 4. Hypertension 5. Hyperlipidemia 6. GERD 7. Diabetes mellitus 8. Anxiety #Acute pyelonephritis/complicated UTI Patient presented with fever 100.8, chills, nausea, burning urination, frequency , dysuria and urgency. He has past medical history significant for UTIs. Recent left ureteral stent placement. X-ray show nonobstructive calculus in the lower pole of the kidney. Pyelonephritis possibly secondary to complicated UTI and ureteral stones * Urine culture grew Citrobacter, which is sensitive to everything tested, except for ampicillin. The patient had received IV ceftriaxone, which is now converted to Bactrim PO day 2 (total antibiotics day 7), at a renal-adjusted dose * Final blood cultures is negative. * CT abdomen: showed b/l stones, hydroureteronephrosis, and a stone measuring 6mm x 2mm near VUJ on left side where the stent is. * Pain management * Will continue to follow urology recommendation. Patient is undergoing urological surgery today, will follow postoperative notes and recommendations from urology. #Sepsis of urologic origin, resolving Patient fulfilled sepsis criteria on admission tachycardic, leukocytosis. Source of infection urine, x-ray findings suggestive of ureteral calculus. There is post ureter stent placement. * Monitor vitals closely * Lactic acid elevated on admission, repeat was normal on third time #External hemorrhoid Continue Preparation H cream locally #Elevated creatinine: Level was 1.1 in May 2016 upon discharge. Hold Irbesartan and metformin. Repeat levels in the morning. today it is 1.2, near baseline. #Diabetes: Accu-Cheks regularly Will continue the patient on Levemir 10 units daily. Will hold metformin and maintain the patient on insulin sliding scale while inpatient. #Hyperkalemia: Potassium today is 4.8, asymptomatic. Will recheck levels in the morning. #Hypertension irbesartan on hold because of elevated creatinine initially, is getting back to baseline 1.1 -BP has been within normal range. will continue to monitor, to restart his BP meds, as his creatinine is improving too. #Hyperlipidemia Continue statin #GERD Continue Nexium #Anxiety Continue xanax #Patient was instructed to hold his home medications of aspirin, fish oil and flax oil 1 week before his procedure which was scheduled on this Monday. We will continue to hold above medications; consult urology. #diet- diabetic diet, consistent carbohydrate 3, but patient remains on nothing by mouth from midnight tonight in anticipation of surgery today. #DVT prophylaxis with ALPS #FULL CODE STATUS. Problem List: 1. Sepsis 2. UTI (urinary tract infection) 3. Ureterolithiasis 4. Renal colic on left side Pain Ratin Pain Location: low ant lower abd while voiding urine Pain Goal: Pain 4 or less Pain Plan: prn Tomorrow's Labs & Rationales: CBC, BEP, INR post op PAOLA GUTIERREZ MD 06/08/16 1332: Attending Review Statement Attending Statement Attending Statement: examined this patient, discuss w/resident/PA/LIVING SPECIALIST, agreed w/resident/PA/LIVING SPECIALIST, discussed with family, reviewed EMR data (avail), discussed with nursing, discussed with case mgmt, amended to note Attending Assessment/Plan: extremely pleasant gentleman sitting up comfortably in his chair not in any distress. present at the bedside. Scheduled to go to the OR today with the urology service. He has been transitioned to oral antibiotics. He remains afebrile hemodynamically stable he may be discharged home tomorrow. Patient is in agreement with this plan.
[2016-06-08 08:19] LABS: PT 11.9 SEC (9.4-12.5)
[2016-06-08 08:30] LABS: ABSOLUTE BASOPHIL COUNT 0 /CUMM (0.0-0.2); ABSOLUTE EOSINOPHIL COUNT 0.2 /CUMM (0.0-0.7); ABSOLUTE GRANULOCYTE CT 4.9 /CUMM (1.4-6.5); ABSOLUTE LYMPH COUNT 1.9 /CUMM (1.2-3.4); ABSOLUTE MONOCYTE COUNT 0.6 /CUMM (0.10-0.60); BASOPHIL % 0.6 % (0.0-2.0); EOSINOPHIL % 2.3 % (0-5); GRANULOCYTE % 64.7 % (42.2-75.2); HEMATOCRIT 36.8 % (42-52); MEAN CORPUSCULAR HGB CONC 33.3 G/DL (33.0-37.0); MEAN CORPUSCULAR VOLUME 78.2 FL (80.0-94.0); MEAN PLATELET VOLUME 7.8 FL (7.4-10.4); PLATELET COUNT 276 /CUMM (130-400); RBC DISTRIBUTION WIDTH 15.1 % (11.5-14.5); WHITE BLOOD CELL COUNT 7.6 /CUMM (4.8-10.8)
--- NOTE | 2016-06-08 12:50 | NUR ---
[facility] FOR [facility].R. WILL AWAIT RETURN TO FLOOR.
--- NOTE | 2016-06-08 13:45 | NUR ---
RETUIRNED TO FLOOR FROM PACU, A/OX3, RA, REPORTING BURNING SENSATION AT URETHRA, 06/13, LOW CATHETER IN PLACE DRAINING BLOOD TINGED URINE. WILL CONTINUE TO MONITOR.
--- NOTE | 2016-06-08 15:05 | Operative Report ---
Operative/Inv Procedure Report Surgery Date: 06/08/16 Name of Procedure: Cystoscopy, left ureteroscopy, laser lithotripsy of left ureteral and left renal stones, basket extraction of stone fragments, insertion of left double-J ureteral stent Pre-Operative Diagnosis: Left renal and ureteral stones Post-Operative Diagnosis: Same Estimated Blood Loss: scant Surgeon/Associate Trainer: Jany VALLES, JAY JAY Bettencourt M.DUGBENISHA Anesthesia: laryngeal mask airway Drains: 26 cm 6 Bulgarian left double-J ureteral stent with long suture and 20 Bulgarian Osei Specimens: Left ureteral stone fragments Complications: None Condition: Stable Operative Indication: Left ureteral and renal stones with recent episode of urosepsis Operative/Procedure Note Note: The patient was taken to the cystoscopy room and identified. He is placed in supine position on the cystoscopy table. Timeout was executed appropriately with the patient awake. Gen. anesthesia was induced via LMA. He was then placed in dorsal lithotomy position and prepped and draped in usual fashion for cystoscopy. Surgical pause was executed appropriately. A fluoroscopy images taken with a marker on the left side of the abdomen to confirm the correct side of the surgery as well as a correct orientation of the fluoroscopy image. 22 Bulgarian cystoscope sheath was placed into the bladder under direct vision. Anterior urethra was normal. The prostatic urethra showed partial bladder outlet obstruction due to an enlarged prostate with trilobar hypertrophy. The bladder was normal with the exception of some edema on the left ureteral orifice with the distal end of the left ureteral stent was present. The guidewire was placed adjacent to the left ureteral stent up to the level of the kidney. Using a grasping forceps the stent was removed leaving the guidewire in place. A rigid ureteroscope was then advanced through the urethra into the left distal ureter. 5 stones were seen in the distal ureter. He had a yellow appearance consistent with uric acid. Laser lithotripsy was performed. The cord the stone was darker consistent with calcium nidus. As a spiral basket was used to extract the stone fragments. Next the rigid ureteroscope was removed. A second guidewire had been placed through the scope. Over the second guidewire was placed a ureteral access sheath. Through the sheath flexible ureteroscope was passed. Stones were seen in the left kidney and mid pole and lower pole calyces. Using the holmium laser the stones were fragmented. Multiple stone fragments were then removed with a 0 tip basket. Some contrast was injected left renal collecting system and the flexible ureteroscope was removed. The cystoscope was back loaded onto the guidewire. Under visual fluoroscopic control a 26 cm 6 Bulgarian left double-J ureteral stent was placed. A long suture was left attached the distal end. Fluoroscopy confirmed the proximal and coiled in the kidney and the distal" in the bladder. A Osei catheter was placed. Patient tolerated the procedure well and as completion was taken to recovery room in stable condition Findings: Multiple left ureteral and left renal calculi Discharge Disposition: PACU
--- NOTE | 2016-06-08 15:06 | PN- Urology ---
Surgical Brief Attending Note Brief Attending Note: Patient underwent L ureteroscopy and removal of L ureteral and renal stone. L ureteral stent replaced and cole placed. Plan: will remove cole in AM If voiding and otherwise stable possible discharge tomorrow
[2016-06-08] MEDS ORDERED: CEPHALEXIN250 M2 PO ×2 (15:15→16:23)
[2016-06-08 15:45] VITALS: BP 140/92
--- NOTE | 2016-06-08 16:34 | RADIOLOGY REPORT ---
EXAMINATION: XR ABDOMEN C-ARM FLUOROSCOPY ASSISTANCE CLINICAL INDICATION: Left-sided ureteroscopy, stent removal, laser lithotripsy and new stent insertion. COMPARISON: KUB done on 06/03/2016. TECHNIQUE: Multiple spot radiographs were obtained at the time of the left-sided ureteroscopy, stent removal, laser lithotripsy and new stent insertion. Total of 18 images were obtained. FINDINGS: The procedure was performed by Dr. Carmichael. Full procedural details will be dictated by him. Left-sided ureteric stent, ureteroscopy, contrast administration and apparently lithotripsy was performed. The final images shows a new left internal ureteric stent. IMPRESSION: Left-sided ureteroscopy, stent removal, laser lithotripsy and new stent insertion. Full procedural details will be dictated by Dr. Carmichael.
[2016-06-08 22:46] VITALS: BP 142/72
[2016-06-09 06:38] VITALS: BP 140/81
--- NOTE | 2016-06-09 07:42 | PN- Housestaff ---
KIZZY VALLES,MARTIN 06/09/16 0742: Subjective Follow-up For: Urinary tract infection, resolved urinary tract stones, s/p L ureteroscopy and laser litho of L ureteral and L renal stones and L ureteral stent exchange Complaints: dysurea Subjective: I followed up and examined the patient today. He is resting comfortably in a chair, not in acute distress, vitals have been stable, no issues overnight. The only complaint he has is some mild discomfort to Osei catheter. His urine as light yellow in color right now, compared to pink colored yesterday right after the procedure. Review of Systems Constitutional: Reports: no symptoms. EENTM: Reports: no symptoms. Cardiovascular: Reports: no symptoms. Respiratory: Reports: no symptoms. Gastrointestinal: Reports: no symptoms. Genitourinary: Reports: see HPI. Musculoskeletal: Reports: no symptoms. Skin: Reports: no symptoms. Neurological/Psychological: Reports: no symptoms. Objective Last 24 Hrs of Vital Signs/I&O Vital Signs Date Time Temp Pulse Resp B/P Pulse O2 O2 Flow FiO2 Ox Delivery Rate 06/09 0800 98 Room Air / 0638 98.2 67 20 140/81 96 Room Air 04/ 0000 97 Room Air Room Air 04/05 2246 97.8 75 20 142/72 97 Room Air Intake & Output / 1600 04/06 0800 04/06 0000 Intake Total 480 Output Total 1000 Balance -520 Intake, Oral 480 Number 0 Bowel Movements Output, Urine 1000 Physical Exam General Appearance: Alert, Oriented X3, Cooperative, No Acute Distress Other Physical Findings: Skin No Rashes, No Breakdown, No Significant Lesion HEENT Atraumatic, PERRLA, EOMI, Mucous Membr. moist/pink Neck Supple, No JVD, No thryomegaly Lymphatic Axillary nl, Cervical nl Cardiovascular Regular Rate, Normal S1, Normal S2, No Murmurs Lungs Clear to Auscultation, Normal Air Movement Abdomen Normal Bowel Sounds, Soft, CVA Tenderness+ mildly over L>R, No Hepatospenomegaly, No Masses, NON TENDER ANTERIORLY.; Osei cath in place with yellow colored urine in the uro-bag (not pink anymore c.f. pink urine yesterday after the surgery) (LEXUS) RECTAL EXAM: done on 06/07/2016:has external hemorrhoid between 12 and 3 o' clock position, mildly tender, no open wound, no inflammation around it, and at the tip/top of the hemorrhoid, black/dark small area is visible suggestive of hematoma (?thrombosis), no skin damage Neurological Strength at 5/5 X4 Ext, Normal Tone, Sensation Intact, Cranial Nerves 3-12 NL, Reflexes 2+ Extremities No Clubbing, No Cyanosis, No Edema, Normal Pulses, No Tenderness/ Swelling Vascular Normal Pulses, Pulses Symmetric Current Medications: Current Medications Sig/Harini Start time Last Medication Dose Route Stop Time Status Admin Acetaminophen 650 MG .STK-MED ONE 06/09 0403 DC PO 06/09 0404 Acetaminophen 650 MG Q4P PRN 06/08 1600 DCD 06/09 PO 0406 Acetaminophen 650 MG Q4P PRN 06/03 1830 DC 04 PO 0936 Alprazolam 0.25 MG TID PRN 06/08 1600 DCD / PO 06/15 1559 0401 Alprazolam 0.25 MG TID PRN 06/03 0515 DC 06/08 PO 06/10 0514 0742 Atorvastatin Calcium 10 MG 1700 06/08 1700 DCD 04 PO 1631 Atorvastatin Calcium 10 MG 1700 06/03 1700 DC 04/ PO 1823 Cephalexin 250 MG Q6 06/08 1800 DCD 06/09 PO 1146 Cephalexin 250 MG Q6 06/07 1200 DC 04 PO 0559 Docusate Sodium 100 MG BID 06/08 2200 DCD 04 PO 1146 Docusate Sodium 100 MG BID 04 1207 DC 04 PO 2234 Insulin Aspart 0 TIDAC 04/ 1700 DCD 06/09 SC 1256 Insulin Detemir 10 UNITS DAILY 06/09 1000 DCD 04 SC 1146 Insulin Detemir 10 UNITS DAILY 06/03 1000 DC 04/ SC 0936 Insulin Human Regular 0 Q6 06/07 2359 DC 04 SC 1213 Omeprazole 20 MG DAILY AC 06/09 0700 DCD 04 PO 0708 Omeprazole 20 MG DAILY AC 06/03 0700 DC 04 PO 0559 Oxycodone/ 1 TAB Q4P PRN 06/08 1715 DCD 04 Acetaminophen PO 1729 Oxycodone/ 2 TAB Q4P PRN 06/08 1715 DCD Acetaminophen PO Phenylephrine HCl 1 ROSSI Q4 04 1400 DCD 04/06 IN 1148 Phenylephrine HCl 1 ROSSI Q6P PRN 06/06 1130 DC 06/07 IN 2234 Polyethylene Glycol 17 GM DAILY 06/09 1000 DCD 06/09 PO 1145 Polyethylene Glycol 17 GM DAILY 06/04 1206 DC 06/07 PO 1022 Potassium Chloride 20 MEQ Q20H 06/08 1600 DC 06/08 Dextrose/Sodium 1,000 ML IV 2159 Chloride Ramelteon 8 MG AT BEDTIME NEED.. 06/08 1600 DCD 06/09 PO 0034 Ramelteon 8 MG AT BEDTIME NEED.. 06/04 1924 DC 06/04 PO 2018 Last 24 Hrs of Lab/Osvaldo Results Last 24 Hrs of Labs/Mics: Laboratory Tests 06/09/16 0645: Anion Gap 10, Estimated GFR > 60, BUN/Creatinine Ratio 16.4, PT 12.7 H, INR 1.21 H, CBC w Diff NO MAN DIFF REQ, RBC 4.86, MCV 78.9 L, MCH 26.0 L, RDW 15.3 H, MPV 7.7, Gran % 67.9, Lymphocytes % 21.6, Monocytes % 7.7, Eosinophils % 2.2, Basophils % 0.6, Absolute Granulocytes 5.7, Absolute Lymphocytes 1.8, Absolute Monocytes 0.6, Absolute Eosinophils 0.2, Absolute Basophils 0, PUBS MCHC 33.0 Assessment/Plan Assessment: This is a 75-year-old male with past medical history significant for hypertension, hyperlipidemia, GERD, diabetes mellitus, anxiety, nephrolithiasis, UTI twice in the past, history of ureteral stones, left ureteral stent placement in the past, and enlarged prostate presented to emergency department with a chief complaint of fever, chills, back pain, burning urination for one day. Patient reported history of UTIs twice in the last month. He was admitted at [facility] on 05/05/2016 for left ureteral stone status post left ureteral stent placement. He was advised to get his stent removed on June 06/2017. His urine grew gram-negative rods Citrobacter in May 2016. Vital signs on admission: Temperature 99.1, pulse rate 120, respiratory rate 18, blood pressure 141/77, oxygen saturation 97% on room air; Pertinent lab: Leukocytosis to 18 with granulocytosis. Sodium 135, potassium 5.3, creatinine 1.4, GFR 50, glucose 267, lactic acid 3.4>> 2.5; Urine analysis-cloudy, nitrites and esterase positive, packed WBC, bacteriuria; Pertinent imaging: KUB x-ray:The position of the left ureteral stent remains unchanged. No definite calcification is visualized along the expected course of the left ureter. A nonobstructing calculus within a lower pole calyx left kidney is redemonstrated. Problem list 1. Acute pyelonephritis/complicated UTI 2. Sepsis of urologic origin 3. Elevated creatinine 4. Hypertension 5. Hyperlipidemia 6. GERD 7. Diabetes mellitus 8. Anxiety #Sepsis, Acute pyelonephritis/complicated UTI Patient presented with fever 100.8, chills, nausea, burning urination, frequency , dysuria and urgency, lactic acidosis. He has past medical history significant for UTIs. Recent left ureteral stent placement. X-ray show nonobstructive calculus in the lower pole of the kidney. Pyelonephritis possibly secondary to complicated UTI and ureteral stones. * Urine culture grew Citrobacter, which is sensitive to everything tested, except for ampicillin. The patient had received IV ceftriaxone, which is now converted to Bactrim PO day 3 (total antibiotics day 8), at a renal-adjusted dose. Sepsis has subsided. * Underwent left ureteroscopy and laser lithotripsy of left ureter and left renal stone and exchange of left ureteral stent yesterday on 06/08/16. * Final blood cultures is negative. * Pain management adequate * Patient is safe to discharge home per surgery recommendation, with a follow-up after one week regarding left ureteral stent removal. Osei catheter was removed early this morning and the patient was able to void urine after that. The color of the urine was slightly pink but no clots or no gross hematuria. #External hemorrhoid Continue Preparation H cream locally #Elevated creatinine: Level was 1.1 in May 2016 upon discharge. Hold Irbesartan and metformin. Repeat levels in the morning. today it is 1.2, near baseline. #Diabetes: Accu-Cheks regularly Will continue the patient on Levemir 10 units daily. Will hold metformin and maintain the patient on insulin sliding scale while inpatient. #Hyperkalemia: Potassium today is 5.0, asymptomatic. For some reason, he was ordered potassium supplement IV yesterday, which has been discontinued. Will recheck levels in the morning. #Hypertension irbesartan on hold because of elevated creatinine initially, is getting back to baseline 1.1 -BP has been within normal range. will continue to monitor, to restart his BP meds, as his creatinine is improving too. #Hyperlipidemia Continue statin #GERD Continue Nexium #Anxiety Continue xanax #Patient was instructed to hold his home medications of aspirin, fish oil and flax oil 1 week before his procedure which was scheduled on this Monday. We will continue to hold above medications; consult urology. #diet- diabetic diet, consistent carbohydrate 3, but patient remains on nothing by mouth from midnight tonight in anticipation of surgery today. #DVT prophylaxis with ALPS #FULL CODE STATUS. Problem List: 1. UTI (urinary tract infection) 2. Renal colic on left side 3. Renal cyst Pain Ratin Pain Location: - Pain Goal: Pain 4 or less Pain Plan: prn Tomorrow's Labs & Rationales: - BRENDA VALLES,PAOLA 06/09/16 1157: Attending MD Review Statement Attending Statement Attending MD Statement: examined this patient, discuss w/resident/PA/SENIOR NETWORK ADMINISTRATOR, agreed w/resident/PA/SENIOR NETWORK ADMINISTRATOR, reviewed EMR data (avail), discussed with nursing, discussed with case mgmt, amended to note Attending Assessment/Plan: Patient seen and examined. Resting comfortably not in any acute distress. Urology evaluation appreciated. Is medically stable to be discharged today. He will follow-up with urology service as an outpatient next week.
--- NOTE | 2016-06-09 07:53 | PN- Urology ---
Subjective Subjective: Comfortable Objective Vital Signs and I&Os Vital Signs Date Time Temp Pulse Resp B/P Pulse O2 O2 Flow FiO2 Ox Delivery Rate 06/09 637 98.2 67 20 140/81 96 Room Air 06/09 0000 97 Room Air Room Air 06/08 2246 97.8 75 20 142/72 97 Room Air 06/08 1545 97.5 76 20 140/92 97 Room Air Intake & Output 06/09 0000 06/08 1600 06/08 0806/08 0000 06/07 1600 Intake Total 480 620 300 340 700 Output Total 1000 500 Balance -520 620 300 -160 700 Intake, IV 600 300 Intake, Oral 480 20 0 340 700 Number 0 Bowel Movements Output, Urine 1000 500 Patient 215 lb Weight Cole in place draining clear urine Laboratory Tests 06/09 644 Chemistry Sodium Pending Potassium Pending Chloride Pending Carbon Dioxide Pending Anion Gap Pending BUN Pending Creatinine Pending BUN/Creatinine Ratio Pending Coagulation PT Pending INR Pending Hematology CBC w Diff Pending WBC Pending RBC Pending Hgb Pending Hct Pending MCV Pending MCH Pending RDW Pending Plt Count Pending MPV Pending PUBS MCHC Pending Assessment/Plan Assessment/Plan Imp: s/p L ureteroscopy and laser litho of L ureteral and L renal stones and L ureteral stent exchange Plan: Ok to removed cole today If patient is voiding well from my point of view could be discharged later today on abx and f/u in my office next week for removal of L uretertal stent
[2016-06-09 08:23] LABS: PT 12.7 SEC (9.4-12.5)
[2016-06-09 08:24] LABS: ABSOLUTE BASOPHIL COUNT 0 /CUMM (0.0-0.2); ABSOLUTE EOSINOPHIL COUNT 0.2 /CUMM (0.0-0.7); ABSOLUTE GRANULOCYTE CT 5.7 /CUMM (1.4-6.5); ABSOLUTE LYMPH COUNT 1.8 /CUMM (1.2-3.4); ABSOLUTE MONOCYTE COUNT 0.6 /CUMM (0.10-0.60); BASOPHIL % 0.6 % (0.0-2.0); EOSINOPHIL % 2.2 % (0-5); GRANULOCYTE % 67.9 % (42.2-75.2); HEMATOCRIT 38.4 % (42-52); MEAN CORPUSCULAR VOLUME 78.9 FL (80.0-94.0); MEAN PLATELET VOLUME 7.7 FL (7.4-10.4); PLATELET COUNT 295 /CUMM (130-400); RBC DISTRIBUTION WIDTH 15.3 % (11.5-14.5); RED BLOOD CELL CT 4.86 /CUMM (4.70-6.10); WHITE BLOOD CELL COUNT 8.4 /CUMM (4.8-10.8)
[2016-06-09] MEDS ORDERED: HEMORRHOIDAL CR51 GM PR (10:01)
--- NOTE | 2016-06-09 10:03 | Discharge Summary ---
Visit Information Visit Dates Admission Date: 06/02/16 Discharge Date: 06/09/16 Hospital Course Course Attending Physician: PAOLA GUTIERREZ M.D Primary Care Physician: CHELI WOODWADR MD Consulting Request: Consulting Specialty: Urology Consulting Physician: Dr Isiah Carmichael Reason for Consult: Urinary tract stones complicating UTI, with a DJ stent on his Left ureter Hospital Course: Mr Camilo is a pleasant 75-year-old gentleman with past medical history significant for hypertension, hyperlipidemia, GERD, diabetes mellitus, anxiety, nephrolithiasis, UTI twice in the past, history of ureteral stones, left ureteral stent placement in the past, and enlarged prostate, who presented to emergency department with chief complaints of fever, chills, back pain, burning urination for one day. Patient reported history of UTIs twice in the last month. He was admitted at [facility] on 05/05/2016 for left ureteral stone status post left ureteral stent placement. He was advised to get his stent removed on June 06/2017. His urine had grown Gram-negative rods Citrobacter in May 2016. Vital signs on admission: Temperature 99.1, pulse rate 120, respiratory rate 18, blood pressure 141/77 mm Hg, oxygen saturation 97% on room air; Pertinent lab findings: Leukocytosis to 18 with granulocytosis. Sodium 135, potassium 5.3, creatinine 1.4, GFR 50, glucose 267, lactic acid was initially 3.4, which trended down to 2.5; Urine analysis showed -cloudy urine with nitrites and esterase positive, packed WBC, bacteriuria; Pertinent imaging: KUB x-ray: The position of the left ureteral stent remains unchanged. No definite calcification is visualized along the expected course of the left ureter. A nonobstructing calculus within a lower pole calyx left kidney is redemonstrated. Problem list 1. Acute pyelonephritis/complicated UTI 2. Sepsis of urologic origin 3. Elevated creatinine 4. Hypertension 5. Hyperlipidemia 6. GERD 7. Diabetes mellitus 8. Anxiety #Sepsis, Acute pyelonephritis/complicated UTI Patient presented with fever 100.8, chills, nausea, burning urination, frequency , dysuria, urgency, and lactic acidosis. He has past medical history significant for recurrent UTIs and urinary tract stones with a recent left ureteral stent placement earlier this month, so a diagnosis of sepsis of urological origin was made. X-ray show nonobstructive calculus in the lower pole of the kidney. Diagnosis of pyelonephritis possibly secondary to complicated UTI and ureteral stones was made. * Urine culture grew Citrobacter, which was sensitive to everything tested, except for ampicillin. The patient had received IV ceftriaxone, which was converted to Bactrim DS, at a renal-adjusted dose. Sepsis had subsided. Final blood cultures were negative. He was adequately managed for pain. * He underwent left ureteroscopy and laser lithotripsy of left ureter and left renal stone and exchange of left ureteral stent on 06/08/16. * Patient was safe to discharge home per surgery recommendation, and needed a follow-up after one week regarding left ureteral stent removal. Osei catheter was removed on the morning of discharge and he was able to void urine. The color of the urine was slightly pink but no clots or no gross hematuria was noted. #External hemorrhoid He complained of something near his anal sphincter on the day before his discharge. Upon examination, he had findings suggestive of external hemorrhoid whthout thrombosis. No imaging was done. He was prescribed Preparation H cream locally, which has been continued as discharge medication as well. He will require a follow-up examination by his PCP or surgeon as outpatient for the same if symptoms persist. #Elevated creatinine: His creatinine level on admission was 1.4, and his home meds of Irbesartan and metformin was held. Repeat levels in the morning of discharge was 1.1 which was near his baseline. #Diabetes: Accu-Cheks were regularly TID and HS. He was placed on home dose of Levemir 10 units daily. Home meds of Metformin was held and he was maintained on insulin sliding scale while inpatient. #Transient Hyperkalemia: Potassium on the day of discharge was 5.0, and he was asymptomatic. #Hypertension: Home medication of Irbesartan was on hold because of elevated creatinine initially, which went back to baseline of 1.1. BP was under control during his stay. #Hyperlipidemia: Home medication of statin was continued. #GERD: Home medication of Nexium was continued. #Anxiety: Home medication of Xanax was continued. #Patient was instructed to hold his home medications of aspirin, fish oil and flax oil 1 week before his procedure which was scheduled on this Monday. We will continue to hold above medications; consult urology. #He was placed on diabetic diet, consistent carbohydrate 3. #DVT prophylaxis with ALPS #He held a FULL CODE STATUS. Complications: None Allergies: Coded Allergies: hydromorphone (From DILAUDID) (Mild, PT REPORTS DOES NOT LIKE THE WAY IT MAKES HIM FEEL 06/03/16) aspirin (325 MG / GI UPSET 06/01/16) Significant Procedures: Cystoscopy, left ureteroscopy, laser lithotripsy of left ureteral and left renal stones, basket extraction of stone fragments, insertion of left double-J ureteral stent on 06/09/[address] Isiah Carmichael (Urologist) for left ureteral and renal stones with recent episode of urosepsis. Findings of the surgery were : Multiple left ureteral and left renal calculi. Abdomen pelvis CAT scan done on 06/03/2016: IMPRESSION: 1. Persistent mild left-sided hydroureteronephrosis with a new 0.6 x 0.2 cm calcification seen posterior to the distal ureteral stent, approximately 1.2 cm from the ureterovesical junction. 2. No right-sided hydroureteronephrosis. 3. Multiple bilateral renal calculi, progressive in size compared to 05/24/2015. 4. Dominant right mid renal cyst now appears mildly hyperdense, suggesting interval hemorrhage into the cyst. Other right renal masses are poorly characterized as discussed above. 5. Mild bladder wall hypertrophy related to chronic outlet obstruction from an heterogeneous enlarged prostate gland. 6. Colonic diverticulosis. DICTATED BY: MANI VALLES,ADOLFO Cast DATE/TIME DICTATED:06/03/16606 FISHER EEL:AUREA DATE/TIME TRANSCRIBED:06/03/16606 Abdominal x-ray done on 06/08/2016: IMPRESSION: Left-sided ureteroscopy, stent removal, laser lithotripsy and new stent insertion. Full procedural details will be dictated by Dr. Carmichael. DICTATED BY: MITCHELL BAZAN MD DATE/TIME DICTATED:06/08/161550 FISHER EEL:OJEDA DATE/TIME TRANSCRIBED:06/08/161550 Pertinent Lab Results: Past 72 hrs Laboratory Tests 06/09/16 0645: Anion Gap 10, Estimated GFR > 60, BUN/Creatinine Ratio 16.4, PT 12.7 H, INR 1.21 H, CBC w Diff NO MAN DIFF REQ, RBC 4.86, MCV 78.9 L, MCH 26.0 L, RDW 15.3 H, MPV 7.7, Gran % 67.9, Lymphocytes % 21.6, Monocytes % 7.7, Eosinophils % 2.2, Basophils % 0.6, Absolute Granulocytes 5.7, Absolute Lymphocytes 1.8, Absolute Monocytes 0.6, Absolute Eosinophils 0.2, Absolute Basophils 0, PUBS MCHC 33.0 06/08/16 0644: Anion Gap 12, Estimated GFR 59 L, BUN/Creatinine Ratio 20.0, PT 11.9, INR 1.13, CBC w Diff NO MAN DIFF REQ, RBC 4.70, MCV 78.2 L, MCH 26.0 L, RDW 15.1 H, MPV 7.8, Gran % 64.7, Lymphocytes % 24.2, Monocytes % 8.2, Eosinophils % 2.3, Basophils % 0.6, Absolute Granulocytes 4.9, Absolute Lymphocytes 1.9, Absolute Monocytes 0.6, Absolute Eosinophils 0.2, Absolute Basophils 0, PUBS MCHC 33.3 Laboratory Tests on admission: 06/03/16 0441: Lactic Acid 2.5 H 06/03/16 0156: Lactic Acid 3.4 H 06/02/169: Anion Gap 15, Estimated GFR 50 L, BUN/Creatinine Ratio 30.0 H, Glucose 267 H, Calcium 10.2, Total Bilirubin 0.8, AST 22, ALT 35, Alkaline Phosphatase 65, Total Protein 7.6, Albumin 4.8, Globulin 2.8, Albumin/Globulin Ratio 1.7, CBC w Diff MAN DIFF ORDERED, RBC 5.64, MCV 80.5, MCH 25.8 L, RDW 15.2 H, MPV 7.7, Gran % 90.3 H, Lymphocytes % 6.6 L, Monocytes % 2.9, Eosinophils % 0.2, Basophils % 0 L, Absolute Granulocytes 16.3 H, Absolute Lymphocytes 1.2, Absolute Monocytes 0.5, Absolute Eosinophils 0, Absolute Basophils 0, Platelet Estimate ADEQUATE, Normocytic RBCs VERIFIED, Normochromic RBCs VERIFIED, Polychromasia 1+, Anisocytosis 1+, PUBS MCHC 32.0 L 06/02/16 2120: Urine Color YEL, Urine Clarity CLDY H, Urine pH 6.0, Ur Specific [place] 1.020, Urine Protein 100 H, Urine Ketones NEG, Urine Nitrite POS H, Urine Bilirubin NEG, Urine Urobilinogen 0.2, Ur Leukocyte Esterase MOD H, Ur Microscopic SEDIMENT EXAMINED, Urine RBC 15-25 H, Urine WBC PACKD H, Ur Epithelial Cells FEW, Urine Bacteria MANY H, Urine Mucus MOD H, Urine Hemoglobin MOD H, Urine Glucose 250 H Disposition Summary Disposition Principal Diagnosis: Sepsis, secondary to urinary tract infection, secondary to multiple stones in the urinary tract Additional Diagnosis: Hypertension, hyperlipidemia, GERD, diabetes mellitus, nephrolithiasis, anxiety, UTI twice in the past, history of ureteral stones, left ureteral stent placement in 2016 Discharge Disposition: home or self care Discharge Instructions General Discharge Information Code Status: Full Code Patient's Diet: Heart healthy, regular diet Patient's Activity: As tolerated Follow-Up Instructions/Appts: Please visit your primary care physician within 7-10 days after discharge. Please complete the course of antibiotics as prescribed. Please follow-up with your urologist within 7 days after discharge regarding removal of ureteral stent. Also follow-up with your urologist for right-sided renal cyst. Please return to emergency if symptoms worsen. Medications at Discharge Discharge Medications: Continue taking these medications: Atorvastatin Calcium (Atorvastatin Calcium) 20 MG TABLET 0.5 Tablet ORAL DAILY Qty = 90 Comments: LAST GIVEN 06/07/16 @ 1800 Irbesartan (Irbesartan) 150 MG TABLET 1 Tablet ORAL DAILY Qty = 90 Comments: Last Taken:NOT TAKEN IN HOSPITAL Time: Metformin HCl (Metformin HCl) 1,000 MG TABLET 1 Tablet ORAL TWICE DAILY Qty = 180 Comments: Last Taken:NOT TAKEN IN HOSPITAL Time: Esomeprazole Magnesium (Nexium) 20 MG CAPSULE. 1 Capsule ORAL DAILY Comments: Last Taken:NOT TAKEN IN HOSPITAL Time: Aspirin (Ecotrin*) 81 MG TABLET. 1 Tablet ORAL DAILY Comments: Last Taken:3/5/17 Time:0812 Multivitamin (Daily Multiple Vitamin) 1 EACH TABLET 1 Tablet ORAL DAILY Comments: Last Taken:NOT TAKEN IN HOSPITAL Time: Flaxseed Oil (Flax Oil) 1,000 MG CAPSULE 1 Capsule ORAL DAILY Comments: Last Taken:NOT TAKEN IN HOSPITAL Time: Insulin Detemir (Levemir Flextouch) 100 UNIT/ML (3 ML) INSULN.PEN 10 Units Inject into fatty tissue DAILY Instructions: TAKES AT 5 PM Comments: LAST GIVEN 06/09/16 @ 1100 Alprazolam (Xanax) 0.5 MG TABLET 1 Tablet ORAL THREE TIMES A DAY NEEDED Comments: LAST GIVEN 06/09/16 @ 0400 Start taking the following new medications: Cephalexin (Cephalexin) 250 MG CAPSULE 250 Milligram ORAL EVERY SIX HOURS Days = 8 No Refills Comments: LAST GIVEN 06/09/16 @ 1200 Phenyleph/Pramoxin/Glycr/W.pet (Hemorrhoidal Cream) 0.25 %-1 % CREAM..G. 1 Application RECTALLY Every 4 hours Days = 30 No Refills Copies To: ANITA VALLES,ISIAH Michael; TRACE VALLES,CHELI Murillo Attending MD Review Statement Documenting Attending: PAOLA GUTIERREZ M.D Other Findings: I have reviewed the discharge summary.
== END 2016-06-09 13:50 | DRG 854 ==
LOC: CANRESERV → ENRESERVTM → ENRESERVDT → ERH 20:51 → ERHI 23:42 → 2NB 23:42 → ERHI 06-03 14:55 → 2NB 06-03 17:47
PROVIDERS: Emergency Medicine; Student in an Organized Health Care Education/Training Program; ADMIT Internal Medicine
PROC: 0TP98DZ Removal of Intraluminal Device from Ureter, Via Natural or Artificial Opening Endoscopic (ICD-10-PCS; principal; 2016-06-08)
PROC: 0TC18ZZ Extirpation of Matter from Left Kidney, Via Natural or Artificial Opening Endoscopic (ICD-10-PCS; principal; 2016-06-08)
PROC: 0T778DZ Dilation of Left Ureter with Intraluminal Device, Via Natural or Artificial Opening Endoscopic (ICD-10-PCS; principal; 2016-06-08)
PROC: 0TC78ZZ Extirpation of Matter from Left Ureter, Via Natural or Artificial Opening Endoscopic (ICD-10-PCS; principal; 2016-06-08)
DX: A41.9 Sepsis, unspecified organism (principal); N39.0 Urinary tract infection, site not specified; E11.9 Type 2 diabetes mellitus without complications; N13.6 Pyonephrosis; I10 Essential (primary) hypertension; N20.1 Calculus of ureter; E78.5 Hyperlipidemia, unspecified; K21.9 Gastro-esophageal reflux disease without esophagitis; Z79.84 Long term (current) use of oral hypoglycemic drugs; F41.9 Anxiety disorder, unspecified; N40.0 Benign prostatic hyperplasia without lower urinary tract symptoms; N20.0 Calculus of kidney
CPT/HCPCS: 2NSBP; ERO; 36415; 74000; 74176; 81001; 82355; 82436; 87040; 87086; 96361; 96374; 96375; C2617; J0690; J0696; J1815; J1885; J7042

== ENCOUNTER 2017-07-08 09:08 | Inpatient (IN) | payer OTHER, MEDICARE ==
[~2017-07-08] VITALS: Ht 175.3 cm; Wt 110.9 kg
[~2017-07-08 09:08] MED LIST changes: +CEPHALEXIN250 M2 PO; +HEMORRHOIDAL CR51 GM PR
--- NOTE | 2017-07-08 11:11 | ED GI/GU/ABDOMINAL COMPLAINT ---
See Addendum History of Present Illness General Chief Complaint: Male Genitourinary Problems Stated Complaint: BLOOD IN URINE Source: patient, old records Exam Limitations: no limitations Vital Signs & Intake/Output Vital Signs & Intake/Output Vital Signs Date Time Temp Pulse Resp B/P B/P Pulse O2 O2 Flow FiO2 Mean Ox Delivery Rate 07/08 1424 98.9 76 18 143/88 98 Room Air 07/08 1151 97.6 64 18 167/77 98 Room Air 07/08 0926 96.1 85 18 154/83 98 Room Air Allergies Coded Allergies: hydromorphone (From DILAUDID) (Mild, PT REPORTS DOES NOT LIKE THE WAY IT MAKES HIM FEEL 06/03/16) aspirin (325 MG / GI UPSET 06/01/16) Reconcile Medications Alprazolam (Xanax) 0.5 MG TABLET 1 TAB PO TIDPRN ANXIETY (Reported) Aspirin (Ecotrin*) 81 MG TABLET.DR 1 TAB PO DAILY HEART HEALTH (Reported) Atorvastatin Calcium 20 MG TABLET 0.5 TAB PO DAILY CHOLESTEROL (Reported) Cephalexin 250 MG CAPSULE 250 MG PO Q6 URINE INFECTION Esomeprazole Magnesium (Nexium) 20 MG CAPSULE.DR 1 CAP PO DAILY GI (Reported) Flaxseed Oil (Flax Oil) 1,000 MG CAPSULE 1 CAP PO DAILY SUPPLEMENT (Reported) Insulin Detemir (Levemir Flextouch) 100 UNIT/ML (3 ML) INSULN.PEN 10 UNITS SC DAILY DM II (Reported) TAKES AT 5 PM Irbesartan 150 MG TABLET 1 TAB PO DAILY HEART (Reported) Metformin HCl 1,000 MG TABLET 1 TAB PO BID DM (Reported) Multivitamin (Daily Multiple Vitamin) 1 EACH TABLET 1 TAB PO DAILY SUPPLEMENT (Reported) Phenyleph/Pramoxin/Glycr/W.pet (Hemorrhoidal Cream) 0.25 %-1 % CREAM..G. 1 ROSSI [place] Q4 HEMORRHOID Triage Note: C/O LOWER ABDOMINAL PAIN (INTERMITTANT) SINCE LAST PM, WITH BLOOD IN URINE, DIFFICULTY VOIDING. REPORTS A HX OF KIDNEY STONES, STATES HAS BEEN PASSING SMALL STONES THE PAST FEW WEEKS. Triage Nurses Notes Reviewed? yes Onset: Evening Duration: hour(s):, constant, continues in ED Timing: recent history Quality/Severity: fullness, moderate Location: right flank, suprapubic Radiation: no radiation Activities at Onset: rest Prior Abdominal Problems: similar symptoms Past Sexual History: Unobtainable at this time No Modifying Factors: none Associated Symptoms: abdominal pain, urinary retention, hematuria HPI: 1 day prior to admission patient complains of right lower quadrant suprapubic discomfort with decreasing urine output. Last night he saw blood in his urine with continued decrease in urine output. He also reports passing many small kidney stones over the last several days. He denies fever chills nausea vomiting diarrhea chest pain cough shortness breath headache dysuria rash. Past History Travel History Traveled to [place] past 21 day No Medical History Any Pertinent Medical History? see below for history Neurological: NONE EENT: NONE Cardiovascular: hypertension, hyperlipidemia Respiratory: NONE Gastrointestinal: GERD Hepatic: NONE Renal: nephrolithiasis Musculoskeletal: NONE Psychiatric: NONE Endocrine: diabetes History of MRSA: No History of VRE: No History of CDIFF: No Surgical History Surgical History: N Psychosocial History Who do you live with Family Services at Home None What is your primary language Martiniquais Tobacco Use: Never used ETOH Use: occasional use Family History Hx Contributory? No Review of Systems Review of Systems Constitutional: Reports: no symptoms. EENTM: Reports: no symptoms. Respiratory: Reports: no symptoms. Cardiovascular: Reports: no symptoms. GI: Reports: see HPI, abdominal pain. Genitourinary: Reports: see HPI, hematuria. Musculoskeletal: Reports: no symptoms. Skin: Reports: no symptoms. Neurological/Psychological: Reports: no symptoms. Hematologic/Endocrine: Reports: no symptoms. Immunologic/Allergic: Reports: no symptoms. All Other Systems: Reviewed and Negative Physical Exam Physical Exam General Appearance: well developed/nourished, alert, awake, anxious, mild distress, obese Head: atraumatic, normal appearance Eyes: Bilateral: normal appearance, PERRL, EOMI, normal inspection. Ears, Nose, Throat, Mouth: hearing grossly normal, moist mucous membrane Neck: normal inspection, supple, normal alignment Respiratory: normal breath sounds, chest non-tender, no respiratory distress, quiet respiration, lungs clear Cardiovascular: regular rate/rhythm, normal peripheral pulses, norml femoral pulses equa Peripheral Pulses: 4+ carotid (R), 4+ carotid (L) Gastrointestinal: normal bowel sounds, soft, non-tender, no organomegaly Male Genitals: normal genitalia Back: normal inspection, normal range of motion Extremities: normal range of motion, no ligament instability Neurologic/Psych: no motor/sensory deficits, awake, alert, oriented x 3, normal gait, normal mood/affect, news camera person II-XII nml as tested Skin: intact, normal color, warm/dry Core Measures ACS in differential dx? No Sepsis Present: No Sepsis Focused Exam Completed? No Progress Differential Diagnosis: urinary retention, UTI/pyelo Plan of Care: Orders Procedure Date/time Status EKG 07/08 1445 Active Continuous Bladder Irrigation 07/08 104 Active PROTHROMBIN TIME 07/08 104 Complete COMPREHENSIVE METABOLIC PANEL 07/08 104 Complete CBC WITHOUT DIFFERENTIAL 07/08 104 Complete URINALYSIS 07/08 0929 Complete Laboratory Tests 07/08/17 1104: Anion Gap 14, Estimated GFR 33 L, BUN/Creatinine Ratio 20.0, Glucose 257 H, Calcium 9.4, Total Bilirubin 0.8, AST 19, ALT 18 L, Alkaline Phosphatase 72, Total Protein 6.9, Albumin 4.5, Globulin 2.4, Albumin/Globulin Ratio 1.9, PT 11.9, INR 1.09, CBC w Diff NO MAN DIFF REQ, RBC 5.36, MCV 80.1, MCH 26.0 L, MCHC 32.5 L, RDW 15.4 H, MPV 7.7, Gran % 70.5, Lymphocytes % 21.4, Monocytes % 7.2, Eosinophils % 0.6, Basophils % 0.3, Absolute Granulocytes 6.9 H, Absolute Lymphocytes 2.1, Absolute Monocytes 0.7 H, Absolute Eosinophils 0.1, Absolute Basophils 0 07/08/17 0934: Urine Color CASSIDY, Urine Clarity HAZY H, Urine pH 6.0, Ur Specific [place] 1.020, Urine Protein 100 H, Urine Ketones NEG, Urine Nitrite NEG, Urine Bilirubin NEG, Urine Urobilinogen 0.2, Ur Leukocyte Esterase TRACE H, Ur Microscopic SEDIMENT EXAMINED, Urine RBC PACKD H, Urine WBC 5-10 H, Ur Epithelial Cells MANY H, Urine Bacteria FEW H, Hyaline Casts RARE H, Granular Casts RARE H, Urine Hemoglobin LARGE H, Urine Glucose NEG Diagnostic Imaging: Viewed by Me: CT Scan. Discussed w/RAD: CT Scan. Radiology Impression: 1. Acute bilateral obstructive uropathy secondary to bilateral multiple ureteral calculi as outlined above. 2. Additional nonobstructive nephrolithiasis. 3. Additional bladder and urethral calculi. The bladder is decompressed by Osei catheter. Initial ED EKG: none Departure Departure Disposition: STILL A PATIENT Condition: Stable Clinical Impression Primary Impression: Acute bilateral obstructive uropathy Secondary Impressions: Azotemia Referrals: Hawa VALLES,Joshua Michael (PCP/Family) Departure Forms: Customer Survey General Discharge Information OR/GI Note Spoke With: Quinten VALLES,Ubaldo ED Treatment Decision: DAYA JOHNSON JR requires urgent operative management or an emergent procedure that cannot be performed in the Emergency Room setting. Transport To: [facility]
[2017-07-08 11:19] LABS: ABSOLUTE BASOPHIL COUNT 0 /CUMM (0.0-0.2); ABSOLUTE EOSINOPHIL COUNT 0.1 /CUMM (0.0-0.7); ABSOLUTE GRANULOCYTE CT 6.9 /CUMM (1.4-6.5); ABSOLUTE LYMPH COUNT 2.1 /CUMM (1.2-3.4); ABSOLUTE MONOCYTE COUNT 0.7 /CUMM (0.10-0.60); BASOPHIL % 0.3 % (0.0-2.0); EOSINOPHIL % 0.6 % (0-5); GRANULOCYTE % 70.5 % (42.2-75.2); MEAN CORPUSCULAR HGB CONC 32.5 G/DL (33.0-37.0); MEAN CORPUSCULAR VOLUME 80.1 FL (80.0-94.0); MEAN PLATELET VOLUME 7.7 FL (7.4-10.4); PLATELET COUNT 287 /CUMM (130-400); RBC DISTRIBUTION WIDTH 15.4 % (11.5-14.5); RED BLOOD CELL CT 5.36 /CUMM (4.70-6.10); WHITE BLOOD CELL COUNT 9.8 /CUMM (4.8-10.8)
[2017-07-08 11:32] LABS: PT 11.9 SEC (9.4-12.5)
--- NOTE | 2017-07-08 14:23 | CT SCAN REPORT ---
EXAMINATION: CT ABDOMEN AND PELVIS WITHOUT CONTRAST CLINICAL INFORMATION: Decreased urine output with hematuria. COMPARISON: None. TECHNIQUE: Multidetector volumetric imaging was performed from the superior aspect of the liver through the pubic symphysis. Sagittal and coronal reformatted images were obtained on the technologist's workstation. DLP: 811 mGy-cm FINDINGS: LUNG BASES: The visualized lung bases are unremarkable. LIVER, GALLBLADDER, AND BILIARY TREE: The liver is normal in size, shape, and attenuation. No focal hepatic lesion or biliary ductal dilatation is present. The gallbladder is unremarkable with no evidence of radiopaque gallstones, gallbladder wall thickening, or obvious pericholecystic inflammatory changes. PANCREAS: Unremarkable. SPLEEN: Unremarkable. ADRENAL GLANDS: Unremarkable. KIDNEYS AND URETERS: Acute bilateral obstructive uropathy secondary to displacement of renal calculi into the ureters since the previous examination. RIGHT KIDNEY AND URETER: There is decreased stone burden in the right kidney since the prior study with residual nonobstructive calculi measuring up to 9 mm in size in the calyces of the lower pole of the right kidney. There is new mild hydronephrosis and proximal hydroureter secondary to new urolithiasis with several calculi located in the mid right ureter measuring 13 mm in length and 5 mm in diameter. There is associated mild perinephric soft tissue stranding. An incidental 5.3 cm right renal cyst is again demonstrated. LEFT KIDNEY AND URETER: There is decreased stone burden in the left kidney with residual nonobstructive calyceal calculi most prominent in the lower pole measuring 11 mm in maximum diameter. New [id number] hydroureteronephrosis secondary to multiple new mid ureteral calculi measuring 10 mm in length and 8 mm in transverse diameter. There are also multiple additional new distal ureteral calculi measuring up to 7 mm in diameter. There is associated left perinephric soft tissue stranding. BLADDER: The bladder is decompressed by a urinary catheter. There are several small bladder calculi measuring up to 7 mm in size. There is also at least 1 urethral calculus adjacent to the urinary catheter measuring 2 mm in size. GASTROINTESTINAL TRACT: Evidence of extensive diverticulosis without CT changes of diverticulitis. The hepatic flexure is interposed anterior to the liver. The base of the appendix is partly visualized. No focal obstruction or acute abnormality seen in the bowel. ABDOMINAL WALL: No significant hernia is appreciated. LYMPH NODES: Normal. VASCULAR: Vascular calcification is seen without evidence of aneurysm. PELVIC VISCERA: The prostate is enlarged. OSSEOUS STRUCTURES: Multilevel degenerative changes seen in the lumbar spine. IMPRESSION: 1. Acute bilateral obstructive uropathy secondary to bilateral multiple ureteral calculi as outlined above. 2. Additional nonobstructive nephrolithiasis. 3. Additional bladder and urethral calculi. The bladder is decompressed by Osei catheter. This result was discussed with Dr. Cotter by telephone at the time of interpretation.
--- NOTE | 2017-07-08 15:11 | Cons- Urology ---
General Information and HPI Consulting Request Date of Consult: 07/08/17 Requested By: MD Emely, Janina-emergency med Reason for Consult: bilateral renal obstruction with acute renal failure Source of Information: patient, family, old records Exam Limitations: no limitations History of Present Illness: 77 yr old with bilat. renal colic worsening this past week. came to ER unable to void. CT reveals bilat. ureter stones with bilat. hydro. and ARF. bilateral stents emergently to be placed today. Allergies/Medications Allergies: Coded Allergies: hydromorphone (From DILAUDID) (Mild, PT REPORTS DOES NOT LIKE THE WAY IT MAKES HIM FEEL 06/03/16) aspirin (325 MG / GI UPSET 06/01/16) Home Med List: Alprazolam (Xanax) 0.5 MG TABLET 1 TAB PO TIDPRN ANXIETY (Reported) Aspirin (Ecotrin*) 81 MG TABLET.DR 1 TAB PO DAILY HEART HEALTH (Reported) Atorvastatin Calcium 20 MG TABLET 0.5 TAB PO DAILY CHOLESTEROL (Reported) Cephalexin 250 MG CAPSULE 250 MG PO Q6 URINE INFECTION Esomeprazole Magnesium (Nexium) 20 MG CAPSULE.DR 1 CAP PO DAILY GI (Reported) Flaxseed Oil (Flax Oil) 1,000 MG CAPSULE 1 CAP PO DAILY SUPPLEMENT (Reported) Insulin Detemir (Levemir Flextouch) 100 UNIT/ML (3 ML) INSULN.PEN 10 UNITS SC DAILY DM II (Reported) TAKES AT 5 PM Irbesartan 150 MG TABLET 1 TAB PO DAILY HEART (Reported) Metformin HCl 1,000 MG TABLET 1 TAB PO BID DM (Reported) Multivitamin (Daily Multiple Vitamin) 1 EACH TABLET 1 TAB PO DAILY SUPPLEMENT (Reported) Phenyleph/Pramoxin/Glycr/W.pet (Hemorrhoidal Cream) 0.25 %-1 % CREAM..G. 1 ROSSI [place] Q4 HEMORRHOID Current Medications: Current Medications Sig/Harini Start time Last Medication Dose Route Stop Time Status Admin Alprazolam 0 .STK-MED ONE 07/08 1223 DC PO Alprazolam 0.5 MG ONCE ONE 07/08 1215 DC 07/08 PO 07/08 1216 1224 Ceftriaxone Sodium 1,000 MG ONCE ONE 07/08 1515 AC IV 07/08 1516 Lidocaine 0 .STK-MED ONE 07/08 1109 DC TOP Lidocaine 1 ROSSI ONCE ONE 07/08 1100 DC 07/08 TOP 07/08 1101 1137 Sodium Chloride 1,000 ML BOLUS ONE 07/08 1215 DC / IV 07/08 1314 1225 Sodium Chloride 1,000 ML BOLUS ONE 07/08 1100 DC 07/08 IV 07/08 1159 1137 Past History Medical History Blood Transfusion Hx: No Neurological: NONE EENT: NONE Cardiovascular: hypertension, hyperlipidemia Respiratory: NONE Gastrointestinal: GERD Hepatic: NONE Renal: nephrolithiasis Musculoskeletal: NONE Psychiatric: NONE Endocrine: diabetes Surgical History Pertinent Surgical History: none Psychosocial History Where Do You Live? Home Who Do You Live With? spouse Services at Home: None Primary Language: Mongolian Smoking Status: Never Smoked ETOH Use: occasional use Illicit Drug Use: denies illicit drug use Functional Ability ADLs Independent: dressing, eating, toileting, bathing. Ambulation: independent IADLs Independent: shopping, housework, finances, food prep, telephone, transportation , medication admin. Employment History Retired? yes Review of Systems Review of Systems Constitutional: Reports: weakness. EENTM: Denies: no symptoms. Cardiovascular: Denies: no symptoms. Respiratory: Denies: no symptoms. GI: Reports: abdominal pain, bloating. Genitourinary: Reports: hematuria. Musculoskeletal: Denies: no symptoms. Skin: Denies: no symptoms. Exam & Diagnostic Data Vital Signs and I&O Vital Signs Date Time Temp Pulse Resp B/P B/P Pulse O2 O2 Flow FiO2 Mean Ox Delivery Rate 07/08 1424 98.9 76 18 143/88 98 Room Air 07/08 1151 97.6 64 18 167/77 98 Room Air 07/08 0926 96.1 85 18 154/83 98 Room Air Intake & Output 07/08 1600 07/08 0800 07/08 0000 07/07 1600 07/07 0800 07/07 0000 Intake Total Output Total Balance Patient 228 lb Weight Weight Reported by Patient Measurement Method Physical Exam General Appearance: well developed/nourished, obese Head: atraumatic Eyes: Bilateral: normal appearance. Neck: normal inspection Respiratory: normal breath sounds Cardiovascular: regular rate/rhythm Gastrointestinal: normal bowel sounds, soft, non-tender Back: CVA tenderness (R), CVA tenderness (L) Extremities: normal inspection, swelling Neurologic/Psych: no motor/sensory deficits, awake, alert, oriented x 3 Skin: intact, normal color, warm/dry Reproductive: Normal male genitalia Last 24 Hours of Labs: Laboratory Tests 07/08 07/08 1104 0934 Chemistry Sodium (137 - 145 mmol/L) 136 L Potassium (3.5 - 5.1 mmol/L) 5.0 Chloride (98 - 107 mmol/L) 103 Carbon Dioxide (22 - 30 mmol/L) 20 L Anion Gap (5 - 16) 14 BUN (9 - 20 mg/dL) 40 H Creatinine (0.7 - 1.2 mg/dL) 2.0 H Estimated GFR (>60 ml/min) 33 L BUN/Creatinine Ratio (7 - 25 %) 20.0 Glucose (65 - 99 mg/dL) 257 H Calcium (8.4 - 10.2 mg/dL) 9.4 Total Bilirubin (0.2 - 1.3 mg/dL) 0.8 AST (17 - 59 U/L) 19 ALT (21 - 72 U/L) 18 L Alkaline Phosphatase (< 127 U/L) 72 Total Protein (6.3 - 8.2 g/dL) 6.9 Albumin (3.5 - 5.0 g/dL) 4.5 Globulin (1.9 - 4.2 gm/dL) 2.4 Albumin/Globulin Ratio (1.1 - 2.2 %) 1.9 Coagulation PT (9.4 - 12.5 SEC) 11.9 INR (0.90 - 1.17) 1.09 Hematology CBC w Diff NO MAN DIFF REQ WBC (4.8 - 10.8 /CUMM) 9.8 RBC (4.70 - 6.10 /CUMM) 5.36 Hgb (14.0 - 18.0 G/DL) 14.0 Hct (42 - 52 %) 43.0 MCV (80.0 - 94.0 FL) 80.1 MCH (27.0 - 31.0 PG) 26.0 L MCHC (33.0 - 37.0 G/DL) 32.5 L RDW (11.5 - 14.5 %) 15.4 H Plt Count (130 - 400 /CUMM) 287 MPV (7.4 - 10.4 FL) 7.7 Gran % (42.2 - 75.2 %) 70.5 Lymphocytes % (20.5 - 51.1 %) 21.4 Monocytes % (1.7 - 9.3 %) 7.2 Eosinophils % (0 - 5 %) 0.6 Basophils % (0.0 - 2.0 %) 0.3 Absolute Granulocytes (1.4 - 6.5 /CUMM) 6.9 H Absolute Lymphocytes (1.2 - 3.4 /CUMM) 2.1 Absolute Monocytes (0.10 - 0.60 /CUMM) 0.7 H Absolute Eosinophils (0.0 - 0.7 /CUMM) 0.1 Absolute Basophils (0.0 - 0.2 /CUMM) 0 Urines Urine Color (YEL,AMB,STR) CASSIDY Urine Clarity (CLEAR) HAZY H Urine pH (5.0 - 8.0) 6.0 Ur Specific [place] (1.001 - 1.035) 1.020 Urine Protein (NEG,<30 MG/DL) 100 H Urine Ketones (NEG) NEG Urine Nitrite (NEG) NEG Urine Bilirubin (NEG) NEG Urine Urobilinogen (0.1 - 1.0 EU/dl) 0.2 Ur Leukocyte Esterase (NEG) TRACE H Ur Microscopic SEDIMENT EXAMINED Urine RBC (0 - 5 /HPF) PACKD H Urine WBC (0 - 2 /HPF) 5-10 H Ur Epithelial Cells (NONE,FEW) MANY H Urine Bacteria (NEG/NONE) FEW H Hyaline Casts (0/LPF) RARE H Granular Casts (NONE /LPF) RARE H Urine Hemoglobin (NEG) LARGE H Urine Glucose (N MG/DL) NEG Imaging Results: PATIENT: DAYA JOHNSON JR PRESENT AGE: 77 PATIENT ACCOUNT NO: [id number] : 41 LOCATION: [facility] ORDERING PHYSICIAN: Tobias Cotter MD SERVICE DATE: 07/08/17 EXAM TYPE: CAT - CT ABD & PELVIS W/O IV CONTRAS EXAMINATION: CT ABDOMEN AND PELVIS WITHOUT CONTRAST CLINICAL INFORMATION: Decreased urine output with hematuria. COMPARISON: None. TECHNIQUE: Multidetector volumetric imaging was performed from the superior aspect of the liver through the pubic symphysis. Sagittal and coronal reformatted images were obtained on the technologist's workstation. DLP: 811 mGy-cm FINDINGS: LUNG BASES: The visualized lung bases are unremarkable. LIVER, GALLBLADDER, AND BILIARY TREE: The liver is normal in size, shape, and attenuation. No focal hepatic lesion or biliary ductal dilatation is present. The gallbladder is unremarkable with no evidence of radiopaque gallstones, gallbladder wall thickening, or obvious pericholecystic inflammatory changes. PANCREAS: Unremarkable. SPLEEN: Unremarkable. ADRENAL GLANDS: Unremarkable. KIDNEYS AND URETERS: Acute bilateral obstructive uropathy secondary to displacement of renal calculi into the ureters since the previous examination. RIGHT KIDNEY AND URETER: There is decreased stone burden in the right kidney since the prior study with residual nonobstructive calculi measuring up to 9 mm in size in the calyces of the lower pole of the right kidney. There is new mild hydronephrosis and proximal hydroureter secondary to new urolithiasis with several calculi located in the mid right ureter measuring 13 mm in length and 5 mm in diameter. There is associated mild perinephric soft tissue stranding. An incidental 5.3 cm right renal cyst is again demonstrated. LEFT KIDNEY AND URETER: There is decreased stone burden in the left kidney with residual nonobstructive calyceal calculi most prominent in the lower pole measuring 11 mm in maximum diameter. New [id number] hydroureteronephrosis secondary to multiple new mid ureteral calculi measuring 10 mm in length and 8 mm in transverse diameter. There are also multiple additional new distal ureteral calculi measuring up to 7 mm in diameter. There is associated left perinephric soft tissue stranding. BLADDER: The bladder is decompressed by a urinary catheter. There are several small bladder calculi measuring up to 7 mm in size. There is also at least 1 urethral calculus adjacent to the urinary catheter measuring 2 mm in size. GASTROINTESTINAL TRACT: Evidence of extensive diverticulosis without CT changes of diverticulitis. The hepatic flexure is interposed anterior to the liver. The base of the appendix is partly visualized. No focal obstruction or acute abnormality seen in the bowel. ABDOMINAL WALL: No significant hernia is appreciated. LYMPH NODES: Normal. VASCULAR: Vascular calcification is seen without evidence of aneurysm. PELVIC VISCERA: The prostate is enlarged. OSSEOUS STRUCTURES: Multilevel degenerative changes seen in the lumbar spine. IMPRESSION: 1. Acute bilateral obstructive uropathy secondary to bilateral multiple ureteral calculi as outlined above. 2. Additional nonobstructive nephrolithiasis. 3. Additional bladder and urethral calculi. The bladder is decompressed by Osei catheter. This result was discussed with Dr. Cotter by telephone at the time of interpretation. Assessment/Plan Assessment/Plan bilat. obstructed kidneys with ARF: bilateral stents NOW. Copies To: Jany VALLES,Isiah Michael; Quinten VALLES,Ubaldo Hartman Acknowledgment - Thank you for your consult request. Attending MD Review Statement Attending Statement Attending MD Statement: examined this patient, discuss w/resident/PA/EP TECH Attending Assessment/Plan: ARF due to bilateral ureter obstructing stones/IV rocephin now for OR - bilateral stents (5 ft/9inch)
--- NOTE | 2017-07-08 16:51 | History & Physical ---
[facility] 07/08/17 7819: General Information and HPI MD Statement: I have seen and personally examined DAYA JOHNSON Aakash VALENCIA and documented this H& P. The patient is a 77 year old M who presented with a patient stated chief complaint of flank and lower abdominal pain with decreased urine output and hematuria []. Source of Information: patient, family, old records Exam Limitations: no limitations History of Present Illness: 77 YO M ex-smoker with PMH of HTN, HLD, GERD, DM, nephrolithiasis, anxiety, UTI, ureteric stone status post left ureteral stent placement (05/05/16) and BPH came to ED with chief complaint of right flank and lower abdominal pain with decreased urine output and hematuria since last night. He also reported passing stone in urine for last couple days. Patient reported that he was in his usual state of health since last night when he noticed having sudden onset of right flank pain that is radiating to lower abdomen, 7/10, intermittent and dull without aggravating or relieving factor. Patient also reported that he noticed blood in his urine and decreased urine output last night. Patient also stated that for last couple of days he seen small stones in his urine. Patient denied any chills, fever, nausea, vomiting, chest pain, palpitations, lightheadedness, orthopnea, constipation, diarrhea, blood in stool, rash and sick contact. Patient reported that he is seeing Dr. Carmichael regularly as his regular urologist. According to the patient he had CT scan in the past that showed kidney stones and small bladder stones. He also reported that she had some arrhythmias and PVCs so Holter monitor was placed one-week pack. He also had stress test and echocardiogram recently. He is due for Holter monitor reading and echocardiogram next week. Last time patient was admitted to [facility] in May 2016 with sepsis due to urological origin and acute pyelonephritis. Patient underwent left ureteroscopy and laser lithotripsy of left ureteral and left renal stones with exchange of left ureteric stent on 06/08/2016. ED course: Vitals: Temperature 96.1, pulse 85, respiratory rate 18, blood pressure 150/83, oxygen saturation 98% on room air. Labs: WBC count 9.8, hemoglobin 14.0, hematocrit 43.0, platelet count 287, sodium 136, potassium 5.0, BUN 40, creatinine 2.0, glucose 257, BUN/creatinine ratio 20.0, anion gap 14 Allergies/Medications Allergies: Coded Allergies: hydromorphone (From DILAUDID) (Mild, PT REPORTS DOES NOT LIKE THE WAY IT MAKES HIM FEEL 06/03/16) aspirin (325 MG / GI UPSET 06/01/16) Home Med list Alprazolam (Xanax) 0.5 MG TABLET 1 TAB PO TIDPRN ANXIETY (Reported) Aspirin (Ecotrin*) 81 MG TABLET.DR 1 TAB PO DAILY HEART HEALTH (Reported) Atorvastatin Calcium 20 MG TABLET 0.5 TAB PO DAILY CHOLESTEROL (Reported) Cephalexin 250 MG CAPSULE 250 MG PO Q6 URINE INFECTION Esomeprazole Magnesium (Nexium) 20 MG CAPSULE.DR 1 CAP PO DAILY GI (Reported) Flaxseed Oil (Flax Oil) 1,000 MG CAPSULE 1 CAP PO DAILY SUPPLEMENT (Reported) Insulin Detemir (Levemir Flextouch) 100 UNIT/ML (3 ML) INSULN.PEN 10 UNITS SC DAILY DM II (Reported) TAKES AT 5 PM Irbesartan 150 MG TABLET 1 TAB PO DAILY HEART (Reported) Metformin HCl 1,000 MG TABLET 1 TAB PO BID DM (Reported) Multivitamin (Daily Multiple Vitamin) 1 EACH TABLET 1 TAB PO DAILY SUPPLEMENT (Reported) Phenyleph/Pramoxin/Glycr/W.pet (Hemorrhoidal Cream) 0.25 %-1 % CREAM..G. 1 ROSSI [place] Q4 HEMORRHOID Past History Travel History Traveled to [place] past 21 day No Medical History Blood Transfusion Hx: No Neurological: NONE EENT: NONE Cardiovascular: hypertension, hyperlipidemia Respiratory: NONE Gastrointestinal: GERD Hepatic: NONE Renal: nephrolithiasis Musculoskeletal: NONE Psychiatric: NONE Endocrine: diabetes History of MRSA: No History of VRE: No History of CDIFF: No Surgical History Surgical History: N Past Family/Social History Psychosocial History Where do you live? Home Who Do You Live With? spouse Services at Home: None Primary Language: Greenlandic Smoking Status: Never Smoked ETOH Use: occasional use Illicit Drug Use: denies illicit drug use Functional Ability ADLs Independent: dressing, eating, toileting, bathing. Ambulation: independent IADLs Independent: shopping, housework, finances, food prep, telephone, transportation , medication admin. Sexual History Past Sexual History Unobtainable at this time Review of Systems Review of Systems Constitutional: Denies: chills, fever, weakness. EENTM: Reports: no symptoms. Cardiovascular: Denies: chest pain, orthopena, palpitations. Respiratory: Denies: cough, orthopnea, short of breath, sputum production. GI: Denies: abdominal pain, constipation, diarrhea, distention, nausea, vomiting. Genitourinary: Reports: dysuria, hematuria, pain. Denies: discharge. Musculoskeletal: Reports: see HPI. Neurological/Psychological: Reports: no symptoms. Exam & Diagnostic Data Last 24 Hrs of Vital Signs/I&O Vital Signs Date Time Temp Pulse Resp B/P B/P Pulse O2 O2 Flow FiO2 Mean Ox Delivery Rate 07/08 1424 98.9 76 18 143/88 98 Room Air 07/08 1151 97.6 64 18 167/77 98 Room Air 07/08 0926 96.1 85 18 154/83 98 Room Air Intake & Output 07/08 1600 07/08 0800 07/08 0000 Intake Total Output Total Balance Patient 228 lb Weight Weight Reported by Patient Measurement Method Physical Exam General Appearance Alert, Oriented X3, Cooperative Skin No Rashes Skin Temp/Moisture Exam: Warm/Dry Sepsis Skin Exam (color): Normal for Ethnicity HEENT Atraumatic, PERRLA, EOMI Neck Supple Cardiovascular Normal S1, Normal S2 Lungs Clear to Auscultation Abdomen Soft, No Tenderness Neurological Normal Speech, Strength at 5/5 X4 Ext, Normal Tone, Sensation Intact Extremities No Edema Assessment/Plan Assessment: 77 YO M with PMH of HTN, HLD, GERD, DM, nephrolithiasis, anxiety, UTI, ureteric stone status post left ureteral stent placement (05/05/16) and BPH came to ED with chief complaint of flank and lower abdominal pain with decreased urine output and hematuria since last night. He also reported passing stone in urine for last couple days. We are following the patient on general medicine floor for following problems: Post renal obstructive uropathy S/P bilateral stent placement: -Due to bilateral ureteric stones -Patient went to or for stent placement. -We will follow postoperative urology recommendations. -Pain management following pain pathway. -Continue Osei's catheter and irrigate Q every shift until insurance becomes clear. FIFI: -Due to postrenal azotemia -Monitor input and output -Avoid nephrotoxic medications -Follow-up BUN/creatinine UTI: -Possibly patient has been UTI as his urinalysis showing positive esterase. -Follow-up urine cultures -Continue ceftriaxone History of diabetes: -Hold his metformin during hospital stay. -Accu-Cheks -Insulin NovoLog according to sliding scale -Continue insulin Levemir History of hypertension and hyperlipidemia: -Continue atorvastatin -Holding rbesartan for now -If his blood pressure running high we will start amlodipine. History of arrhythmias/PVCs: -Patient recently had a Holter monitor -Follow-up cardiology as outpatient -On admission his EKG is showing sinus rhythm with first-degree heart block. History of GERD: -Continue omeprazole History of anxiety: -Continue Xanax DVT prophylaxis: Mechanical subcutaneous heparin CODE STATUS: Full code As Ranked By This Provider Problem List: 1. UTI (urinary tract infection) 2. Acute bilateral obstructive uropathy 3. FIFI (acute kidney injury) Core Measures/Misc (11/20) Acute Coronary Syndrome ACS Diagnosis: No Congestive Heart Failure Congestive Heart Failure Diagnosis No Cerebrovascular Accident CVA/TIA Diagnosis: No VTE (View Protocol) VTE Risk Factors Age>40 No Mechanical VTE Prophylaxis d/t N/A MechProphylax Ordered No VTE Pharm Prophylaxis d/t NA PharmProphylax ordered Sepsis (View protocol) Sepsis Present: No Gilda Gomez MD 07/08/17 2952: Past Family/Social History Psychosocial History Other Social History: Family history noncontributory to present illness Attending MD Review Statement Attending Statement Attending MD Statement: examined this patient, discuss w/resident/PA/WAREHOUSE ENGINEER, agreed w/resident/PA/WAREHOUSE ENGINEER, reviewed EMR data (avail), reviewed images Attending Assessment/Plan: 77-year-old male past medical history of hypertension, hyperlipidemia, diabetes, anxiety and recurrent urethral and nephrolithiasis. He was last here in 2017 where he had sepsis of urological origin associated with an obstructive uropathy and he returns with flank pain, inability to urinate, passing stones and FIFI with a CT revealing bilateral obstructive uropathy from ureteral calculi. He was taken straight to the OR from the ER by Dr. Shipley and had bilateral ureteral stents placed. At this point will bring him into GEN med, will gently hydrate him and follow his BUN and creatinine closely. We will obviously hold all nephrotoxic's including his arb and his metformin. We'll continue his benzodiazepine for his anxiety, his insulin for his diabetes, aspirin and statin. Will put him on DVT prophylaxis. I think we should cover him with antibiotics for a UTI given the bilateral obstructive uropathy and the instrumentation. If all the cultures are negative will have a low threshold to stop the antibiotics, will discuss this with urology. Ivania Fabian 07/08/17 1716: Resident Review Statement Resident Statement: examined this patient, discussed with digital media intern Other Findings: Patient is a 75-year-old with a past medical history significant for hypertension, hyperlipidemia, history of PVCs?, GERD, diabetes mellitus, anxiety depression, history of recurrent nephrolithiasis complicated with urinary tract infection, last admission to [facility] was in May 2016 for sepsis of urological origin/acute pyelonephritis and obstructive uropathy status post left ureteroscopy and laser lithotripsy of left ureteral and left renal stones with exchange of left ureteric stent, History of BPH, presented to the ED for further evaluation of decreased urine output and right-sided abdominal discomfort. Patient mentioned decreased urine output for the last 1 week, also reported blood and passing stones in the urine.last night he started having right-sided lower abdominal discomfort and he couldn't able to urinate and given to the ER for further assessment .Denied any fever or chills denied any nausea vomiting chest discomfort or breathing. In the ER, CBI was started and CAT scan of the abdomen and pelvis revealed acute bilateral obstructive uropathy secondary to displacement of renal calculi into the ureters and patient was taken to the OR and underwent bilateral stent placement by Dr. Shipley. Of the note, patient has a history of asymptomatic skip beats/PVCs? .Had a Holter monitor placed last week, echocardiogram was also done, patient is supposed to follow with the fiberglass insulation installer on August 02 Initial vitals on admission stable General Appearance: Alert, No Acute Distress Skin: Grossly normal HEENT: PEERLA Neck: Supple, No JVD Cardiovascular: Regular Rate, Normal S1, Normal S2, No Murmurs Lungs: Clear to Auscultation, Normal Air Movement Abdomen: Neurological: Normal Speech, Strength at 5/5 X4 Ext, Cranial Nerves 3-12 NL, Reflexes 2+ Extremities: No Clubbing, No Cyanosis, No Edema Vascular: Normal Pulses ED course Pertinent labs on admission normal WBC count 10.8, H&H stable, slight hyponatremia, elevated BUN and creatinine 40/2(baseline creatinine 1.1) elevated blood sugar levels 257 Urine analysis positive for large leukocyte esterase EKG showed normal sinus rhythm with first-degree AV block. Assessment Acute bilateral obstructive uropathy status post bilateral stents placement Acute kidney injury Urinary tract infection Slight hyponatremia likely due to dehydration Elevated blood sugar levels(history of insulin-dependent diabetes mellitus) History of ? PVCs History of hypertension and hyperlipidemia History of BPH History of anxiety and depression Plan Acute bilateral obstructive uropathy status post bilateral stents placement * Admit the patient GenMed floor * Continue gentle IV hydration * Follow-up with urology recommendations * Continue with Osei catheter for now. Acute kidney injury * Continue with IV hydration * Avoid nephrotoxic agents * Hold metformin and irbesartan * Repeat BEP tomorrow. Urinary tract infection * Continue with IV ceftriaxone * Awaiting home blood and urine culture results * Monitor vitals every 4 hours * Watch for any for any hemodynamic instability. Elevated blood sugar levels(history of insulin-dependent diabetes mellitus) * Start the patient on NovoLog sliding scale * Continue Levemir 10 units * Monitor blood sugar levels. Slightly elevated blood pressure (History of hypertension and hyperlipidemia) * Continue statins. * Will hold RBC started and * A blood pressure continues to remain elevated> 160/90 we'll consider giving Norvasc 5 mg. History of PVCs? status post Holter * Currently normal sinus rhythm with first-degree AV block * Patient will follow-up with his fiberglass insulation installer as an outpatient. History of anxiety and depression * Continue than excess needed for anxiety and depression 4.Mild pain pathway with Tylenol 5. DVT prophylaxis subcutaneous heparin 6. Patient is full code
--- NOTE | 2017-07-08 16:55 | Admission Certification ---
Admission Certification Certification Statement - As attending physician, I certify that at the time of - admission, based on clinical presentation, severity of - symptoms, need for further diagnostic testing and - therapeutic interventions, and risk of adverse outcomes - without in-hospital treatment, in my clinical assessment, - this patient requires an acute hospital stay for a minimum - of two nights or longer. I have also considered psychsocial - factors such as support system, advanced age, financial - issues, cognitive issues, and failed out-patient treatments, - past re-admission history, safety of patient, and lack of - compliance as applicable. Specific rationale supporting this admission is: Acute bilateral obstructive uropathy with acute kidney injury in a patient with diabetes and hypertension.
[2017-07-08 18:00] VITALS: BP 158/80
--- NOTE | 2017-07-08 19:25 | RADIOLOGY REPORT ---
EXAMINATION: XR ABDOMEN CLINICAL INDICATION: Bilateral cystoscopy. COMPARISON: CT abdomen pelvis earlier today. TECHNIQUE: 2 intraoperative fluoroscopic images were obtained of the supervision of Dr. Mejia. Total fluoroscopic time 189.1 seconds. FINDINGS/IMPRESSION: Imaging shows bilateral ureteral stents. No complication demonstrated. Please refer to Dr. Gomez's procedural note.
[2017-07-08 22:17] VITALS: BP 146/68
[2017-07-09 06:20] VITALS: BP 142/74
--- NOTE | 2017-07-09 07:07 | PN- Housestaff ---
[facility] Subjective Follow-up For: Post renal obstructive uropathy S/P bilateral stent placement FIFI UTI Subjective: NO overnight events. Patient remained afebrile mother. Seen and examined this morning. He denied any chest pain, short of breath, nausea, vomiting, chills, fever, abdominal pain dysuria. Review of Systems Constitutional: Denies: chills, fever. EENTM: Reports: no symptoms. Cardiovascular: Denies: chest pain, orthopena, palpitations. Respiratory: Denies: cough, orthopnea, short of breath, sputum production. Gastrointestinal: Denies: abdominal pain, diarrhea, bowel incontinence, nausea. Genitourinary: Reports: see HPI. Neurological/Psychological: Reports: no symptoms. Objective Last 24 Hrs of Vital Signs/I&O Vital Signs Date Time Temp Pulse Resp B/P B/P Pulse O2 O2 Flow FiO2 Mean Ox Delivery Rate 07/09 0620 98.8 76 20 142/74 97 Nasal Cannula 07/09 0000 Nasal 2.0L Cannula 07/08 2217 98.0 72 20 146/68 96 Nasal 2.0L Cannula 07/08 1833 97 Nasal 2.0L Cannula 07/08 1800 98.0 63 20 158/80 97 Nasal 2.0L Cannula / 1424 98.9 76 18 143/88 98 Room Air / 1151 97.6 64 18 167/77 98 Room Air Intake & Output / 1600 05/06 0800 05/ 0000 Intake Total 800 400 Output Total 1300 1500 Balance -500 -1100 Intake, IV 600 300 Intake, Oral 200 100 Output, Urine 1300 1500 Patient 244 lb 228 lb Weight Weight Bed scale Reported by Patient Measurement Method Physical Exam General Appearance: Alert, Oriented X3, Cooperative Skin Temp/Moisture Exam: Warm/Dry Sepsis Skin Exam (color): Normal for Ethnicity HEENT: Atraumatic, PERRLA, EOMI Neck: Supple Cardiovascular: Normal S1, Normal S2 Lungs: Clear to Auscultation Abdomen: Soft, No Tenderness Neurological: Normal Speech, Strength at 5/5 X4 Ext, Normal Tone Extremities: No Edema Assessment/Plan Assessment: 77 YO M with PMH of HTN, HLD, GERD, DM, nephrolithiasis, anxiety, UTI, ureteric stone status post left ureteral stent placement (05/05/16) and BPH came to ED with chief complaint of flank and lower abdominal pain with decreased urine output and hematuria since last night. He also reported passing stone in urine for last couple days. We are following the patient for following problems: Post renal obstructive uropathy S/P bilateral stent placement: -POD 1 -Bilateral ureteric stent placement due to bilateral ureteric stones. -Follow-up nephrology recommendations -Pain management following pain pathway. -Continue Osei's catheter. FIFI: -Due to postrenal azotemia -Monitor input and output -Avoid nephrotoxic medications UTI: -Continue ceftriaxone. If his blood cultures remained negative we will discontinue ceftriaxone. -Urine cultures are negative so far History of diabetes: -Hold his metformin during hospital stay. -Accu-Cheks -Insulin NovoLog according to sliding scale -Continue insulin Levemir 10 units subcutaneous daily History of hypertension and hyperlipidemia: -Continue atorvastatin -Holding rbesartan for now History of arrhythmias/PVCs: -Patient recently had a Holter monitor -Follow-up cardiology as outpatient -On admission his EKG is showing sinus rhythm with first-degree heart block. History of GERD: -Continue omeprazole History of anxiety: -Continue Xanax at nighttime DVT prophylaxis: Mechanical subcutaneous heparin CODE STATUS: Full code Problem List: 1. FIFI (acute kidney injury) 2. Acute bilateral obstructive uropathy 3. UTI (urinary tract infection) Pain Ratin Pain Location: NONE Pain Goal: Remain pain free Pain Plan: PAIN PATHWAY Tomorrow's Labs & Rationales: CBC/BEP Jason VALLES,Gilda 07/09/17 0952: Attending MD Review Statement Attending Statement Attending MD Statement: examined this patient, discuss w/resident/PA/COOK CANDY, agreed w/resident/PA/COOK CANDY, discussed with family, reviewed EMR data (avail), discussed with nursing Attending Assessment/Plan: Patient is feeling markedly better today. He was eager to go home but I explained that his creatinine still needs to be monitored and he still having dark urine from the Osei catheter. He is a 77-year-old with past medical history of diabetes on metformin, hypertension on an arb, hyperlipidemia, anxiety and recurrent ureteral or nephrolithiasis is here with acute obstructive uropathy. He was taken to the OR yesterday by Dr. Shipley who put bilateral ureteral stents and now has a Osei catheter draining darkish urine, although lightened up per patient. The creatinine has come down nicely to 1.7. At this point will stop the fluids, encourage by mouth fluids, follow the creatinine. If all cultures are negative then we'll stop the antibiotics today and follow closely.
[2017-07-09 08:51] LABS: ABSOLUTE BASOPHIL COUNT 0 /CUMM (0.0-0.2); ABSOLUTE EOSINOPHIL COUNT 0 /CUMM (0.0-0.7); ABSOLUTE GRANULOCYTE CT 6.6 /CUMM (1.4-6.5); ABSOLUTE LYMPH COUNT 1.8 /CUMM (1.2-3.4); ABSOLUTE MONOCYTE COUNT 0.6 /CUMM (0.10-0.60); BASOPHIL % 0.3 % (0.0-2.0); EOSINOPHIL % 0.2 % (0-5); GRANULOCYTE % 72.5 % (42.2-75.2); MEAN CORPUSCULAR HGB CONC 32.6 G/DL (33.0-37.0); MEAN PLATELET VOLUME 8.5 FL (7.4-10.4); PLATELET COUNT 267 /CUMM (130-400); RBC DISTRIBUTION WIDTH 15.7 % (11.5-14.5); WHITE BLOOD CELL COUNT 9.1 /CUMM (4.8-10.8)
[2017-07-09 09:04] LABS: MEAN CORPUSCULAR HGB 26.2 PG (27.0-31.0); MEAN CORPUSCULAR VOLUME 80.4 FL (80.0-94.0)
--- NOTE | 2017-07-09 11:04 | Operative Report ---
Operative/Inv Procedure Report Surgery Date: 07/08/17 Name of Procedure: Cystoscopy. Bilateral retrograde pyelogram. Bilateral stent placement with fluoroscopy. Extraction of bladder stones. Pre-Operative Diagnosis: Bilateral obstructed kidneys due to ureteral stones with acute renal failure. Bladder stones. Hydronephrosis. Bilateral renal stones. Post-Operative Diagnosis: Same Estimated Blood Loss: scant Surgeon/Manager Of Tires Sales: [facility] Quint[facility] Anesthesia: general endotracheal tube Drains: 18 German Osei catheter Specimens: Bladder stones Complications: None Condition: Improved Operative/Procedure Note Note: Patient was taken to the operating room and placed on the OR table in supine position. Timeout was performed, with the patient awake, in order to confirm planned procedure, and other pertinent perioperative information. After adequate anesthesia, and IV antibiotics, the patient was then placed in lithotomy stirrups. The Osei catheter was removed, and the patient was then draped and prepped in usual surgical fashion. A 22 German cystoscope sheath with a 30 angle lens was inserted into the bladder without difficulty. Upon entering the prostate, the prostate was noted to have a medium sized middle lobe with obstructing lateral lobes. Upon entering the bladder, the bladder was noted to be severely trabeculated with multiple small bladder stones. The stones were easily, evacuated out and sent to pathology. Both ureteral orifices were in their orthotopic position with no reflux bilaterally. The right orifice was identified, and a tiger tail catheter was inserted into the ureteral orifice. Retrograde pyelogram was performed revealing mid ureter filling defects consistent with stone, and proximal hydronephrosis, with additional stones in the renal calyces. The cone-tipped catheter was removed, and a 0.035 Glidewire was advanced into the right renal pelvis without significant difficulty. The Glidewire was advanced into the right renal pelvis where it coiled without difficulty bypassing the ureteral stones. Over this Glidewire a 6 x 22 Bard onlay stent was railroaded. Under direct visualization, the stent was advanced into the right renal pelvis without difficulty. The Glidewire was removed, and the stent remained in proper place with the proximal coil in the renal pelvis and the distal coil in the bladder. At this point the cystoscope was directed to the left ureteral orifice. The lefy orifice was identified, and a tiger tail catheter was inserted into the left ureteral orifice. Retrograde pyelogram was performed revealing mid ureter filling defects consistent with stone, and proximal hydronephrosis, with additional stones in the renal calyces. The cone-tipped catheter was removed, and a 0.035 Glidewire was advanced into the left renal pelvis without significant difficulty. The Glidewire was advanced into the left renal pelvis where it coiled without difficulty bypassing the ureteral stones. Over this Glidewire a 6 x 22 Bard onlay stent was railroaded. Under direct visualization, the stent was advanced into the left renal pelvis without difficulty. The Glidewire was removed, and the stent remained in proper place with the proximal coil in the left renal pelvis and the distal coil in the bladder. With both stents in proper place, the cystoscope was removed without difficulty. A new 18 German Osei catheter was inserted into the bladder without difficulty draining clear fluid. 10 mL of sterile water was placed into the 10 mL balloon. The Osei was catheter was then placed on a drainage bag. All sponge needle and instrument count were correct at the end of the case. The patient tolerated procedure well was then taken to recovery room in satisfactory condition. Findings: severely trabeculated bladder with multiple small round bladder stones. Bilateral hydronephrosis with bilateral ureteral stones. Discharge Disposition: PACU Additional Comments: Start patient on Flomax 0.4 mg by mouth every at bedtime CC: Ubaldo Shipley MD
[2017-07-09 14:46] VITALS: BP 130/80
[2017-07-09 22:04] VITALS: BP 150/66
[2017-07-10 06:31] VITALS: BP 152/88
--- NOTE | 2017-07-10 07:08 | PN- Housestaff ---
[facility] 07[facility] 0707: Subjective Follow-up For: Post renal obstructive uropathy S/P bilateral stent placement FIFI Subjective: At events. Patient remained afebrile while. Seen and examined this morning he denied any chest pain, short of breath, nausea, vomiting, chills, fever and dysuria. Patient still has Osei's catheter and his urine is blood-tinged. We will remove the Osei's catheter and gave him a voiding trial today and if he is doing better than we will discharge him. Patient will follow Dr. Carmichael as outpatient for further recommendations for ureteric stents. Review of Systems Constitutional: Denies: chills, fever. EENTM: Reports: no symptoms. Cardiovascular: Denies: chest pain, palpitations. Respiratory: Denies: cough, orthopnea, short of breath, sputum production. Gastrointestinal: Denies: abdominal pain, diarrhea, nausea, vomiting. Genitourinary: Reports: frequency, pain. Neurological/Psychological: Reports: no symptoms. Objective Last 24 Hrs of Vital Signs/I&O Vital Signs Date Time Temp Pulse Resp B/P B/P Pulse O2 O2 Flow FiO2 Mean Ox Delivery Rate 07/10 0631 98.2 75 18 152/88 95 Room Air 07/09 2204 98.5 71 20 150/66 94 Room Air 07/09 1446 98.3 89 20 130/80 96 Intake & Output 07/10 1600 07/10 0800 07/10 0000 Intake Total 480 600 Output Total 2000 1700 Balance -1520 -1100 Intake, Oral 480 600 Output, Urine 2000 1700 Patient 244 lb Weight Weight Bed scale Measurement Method Physical Exam General Appearance: Alert, Oriented X3, Cooperative Skin Temp/Moisture Exam: Warm/Dry Sepsis Skin Exam (color): Normal for Ethnicity HEENT: Atraumatic, PERRLA, EOMI Neck: Supple Cardiovascular: Normal S1, Normal S2 Lungs: Clear to Auscultation Abdomen: Soft, No Tenderness Neurological: Normal Speech, Strength at 5/5 X4 Ext, Normal Tone Extremities: No Edema Assessment/Plan Assessment: 77 YO M with PMH of HTN, HLD, GERD, DM, nephrolithiasis, anxiety, UTI, ureteric stone status post left ureteral stent placement (05/05/16) and BPH came to ED with chief complaint of flank and lower abdominal pain with decreased urine output and hematuria since last night. He also reported passing stone in urine for last couple days. We are following the patient for following problems: Post renal obstructive uropathy S/P bilateral stent placement: -POD 2 -Bilateral ureteric stent placement due to bilateral ureteric stones. -We will remove the catheter to give him voiding trials if he is doing fine then we will discharge him today. -Dr. Kenton MD we will see the patient on Monday or Monday to do bilateral ureteroscopy. -Pain management following pain pathway. FIFI:(improving) -Due to postrenal azotemia -Monitor input and output -Avoid nephrotoxic medications UTI: -Off antibiotics as blood and urine cultures are negative. History of diabetes: -Hold his metformin during hospital stay. -Accu-Cheks -Insulin NovoLog according to sliding scale -Continue insulin Levemir 10 units subcutaneous daily History of hypertension and hyperlipidemia: -Continue atorvastatin -After the discharge patient can continue his antihypertensive medication. History of arrhythmias/PVCs: -Patient recently had a Holter monitor -Follow-up cardiology as outpatient -On admission his EKG is showing sinus rhythm with first-degree heart block. History of GERD: -Continue omeprazole History of anxiety: -Continue Xanax at nighttime DVT prophylaxis: Mechanical subcutaneous heparin CODE STATUS: Full code Problem List: 1. FIFI (acute kidney injury) 2. Ureterolithiasis Pain Ratin Pain Location: none Pain Goal: Remain pain free Pain Plan: pain pathway Tomorrow's Labs & Rationales: none Judy VALLES,Martha 07/10/17 1054: Attending MD Review Statement Attending Statement Attending MD Statement: examined this patient, discuss w/resident/PA/LOOM INSPECTOR, agreed w/resident/PA/LOOM INSPECTOR, reviewed EMR data (avail), discussed with nursing, discussed with case mgmt, amended to note Attending Assessment/Plan: Patient seen and examined. Resting comfortably not in any acute distress. No issues overnight reported by nursing staff. He is afebrile hemodynamically stable. Denies any nausea vomiting. Denies any abdominal pain. Osei catheter is in place draining alison colored urine. No presence of blood clots in the urine. Patient looking forward to be discharged home today. Urology follow-up appreciated. Patient will be evaluated at the end of the week for ureteroscopy. Laboratory data is showing improvement of his creatinine. Recommendations: Discontinue Osei catheter. If patient passes voiding trial he will be discharged home to follow-up with urology service as an outpatient. He has no evidence of infection at this time and does not require further antibiotic therapy.
--- NOTE | 2017-07-10 08:00 | PN- Urology ---
Surgical Brief Attending Note Brief Attending Note: Informed of patient's admssion and events over the weekend. Full progress note to follow later today. No plans for procedure today so from urologic point of view he doesn't need to be npo. Will likely treat stones by ureteroscopy at end of this week.
[2017-07-10 08:53] LABS: ABSOLUTE BASOPHIL COUNT 0 /CUMM (0.0-0.2); ABSOLUTE EOSINOPHIL COUNT 0.1 /CUMM (0.0-0.7); ABSOLUTE GRANULOCYTE CT 3.9 /CUMM (1.4-6.5); ABSOLUTE LYMPH COUNT 2.4 /CUMM (1.2-3.4); ABSOLUTE MONOCYTE COUNT 0.6 /CUMM (0.10-0.60); BASOPHIL % 0.6 % (0.0-2.0); EOSINOPHIL % 1.8 % (0-5); GRANULOCYTE % 55.6 % (42.2-75.2); HEMATOCRIT 40.3 % (42-52); MEAN CORPUSCULAR HGB 26.4 PG (27.0-31.0); MEAN CORPUSCULAR HGB CONC 32.8 G/DL (33.0-37.0); MEAN CORPUSCULAR VOLUME 80.5 FL (80.0-94.0); MEAN PLATELET VOLUME 9.1 FL (7.4-10.4); PLATELET COUNT 269 /CUMM (130-400); RBC DISTRIBUTION WIDTH 15.6 % (11.5-14.5)
--- NOTE | 2017-07-10 09:17 | Patient Discharge Instructions ---
Discharge Instructions General Discharge Information You were seen/treated for: UTI B/L ureteric stone with obstructive uropathy s/p b/l stent placement FIFI Watch for these problems: Blood in urine, stone in urine , dysuria, pus in urine, fever, chills, altered mental status, decreaed urine output and flank pain. If you experience any of these symptoms plaese come to ED or call to your primary care physician. Special Instructions: Follow up with pcp in one week. Follow up with your urologist in one week for bilateral ureteroscopy on Monday or Monday. Follow up with your assistant professor of drama in one week Please repeat BEP before going to pcp office. Diet Recommended Diet: Regular Activity Activity Self Limited: Yes Acute Coronary Syndrome Inclusion Criteria At DC or during hospital stay patient has or had the following: ACS DIAGNOSIS No Discharge Core Measures Meds if any: Prescribed or Continued at Discharge Meds if any: NOT Prescribed or Continued at Discharge Congestive Heart Failure Inclusion Criteria At DC or during hospital stay patient has or had the following: CHF DIAGNOSIS No Discharge Core Measures Meds if any: Prescribed or Continued at Discharge Meds if any: NOT Prescribed or Continued at Discharge Cerebrovascular accident Inclusion Criteria At DC or during hospital stay patient has or had the following: CVA/TIA Diagnosis No Discharge Core Measures Meds if any: Prescribed or Continued at Discharge Meds if any: NOT Prescribed or Continued at Discharge Venous thromboembolism Inclusion Criteria VTE Diagnosis No VTE Type NONE VTE Confirmed by (Test) NONE Discharge Core Measures - Per Current guidelines, there needs to be overlap - treatment for the first 5 days of Warfarin therapy. - If discharged on Warfarin prior to 5 days of - overlap therapy, the patient will need to be - assessed for post discharge needs including - *Post discharge parental anticoagulation - *Warfarin and/or parental anticoagulation education - *Follow up date to check INR post discharge At least 5 days overlap therapy as Inpatient No Meds if any: Prescribed or Continued at Discharge Note: Overlap Therapy is Warfarin and Anticoagulant Meds if any: NOT Prescribed or Continued at Discharge
--- NOTE | 2017-07-10 13:12 | Discharge Summary ---
Visit Information Visit Dates Admission Date: 07/08/17 Discharge Date: 07/10/17 Hospital Course Course Attending Physician: Martha Kim MD Primary Care Physician: Joshua Shaikh MD. Hospital Course: 77 YO M with PMH of HTN, HLD, GERD, DM, nephrolithiasis, anxiety, UTI, ureteric stone status post left ureteral stent placement (05/05/16) and BPH came to ED with chief complaint of flank and lower abdominal pain with decreased urine output and hematuria since last night. He also reported passing stone in urine for last couple days. ED course: Vitals: Temperature 96.1, pulse 85, respiratory rate 18, blood pressure 150/83, oxygen saturation 98% on room air. Labs: WBC count 9.8, hemoglobin 14.0, hematocrit 43.0, platelet count 287, sodium 136, potassium 5.0, BUN 40, creatinine 2.0, glucose 257, BUN/creatinine ratio 20.0, anion gap 14 Post renal obstructive uropathy S/P bilateral stent placement: Patient was admitted with obstructive uropathy and he was directly sent from ED to OR for bilateral stent placement and bladder stone was removed. Patient was found to have bilateral obstructed kidney due to ureteral stones with acute kidney injury. Patient was also found to have hydronephrosis and bilateral renal stones. After the procedure Soei's catheter was placed and irrigation was done with saline flushes continue his urine became clear. Pain management was done with pain pathway. Initially patient was given ceftriaxone considering UTI but later on he is urine cultures remain negative and ceftriaxone was discontinued. Patient was instructed to follow urology as outpatient within 1 week for bilateral ureteroscope as outpatient. FIFI: Patient was found to have acute kidney injury due to bilateral ureteral obstructions. Patient was given IV hydration initially. Nephrotoxic medication were discontinued. After the stent placement patient's renal function level gradually came towards normal. Patient was instructed to repeat BEP for BUN and creatinine before requiring to primary care physician. UTI: Initially patient was treated for UTI with ceftriaxone but later on it was discontinued as his urine cultures remain negative. History of diabetes: Accu-Cheks were checked. His metformin was discontinued during hospital stay. He was given insulin NovoLog according to sliding scale and insulin level made 10 units every day. After the discharge his home medications were continued to control his diabetes. History of hypertension and hyperlipidemia: We continued his Lipitor and during hospital stay we held his irbesartan. After the discharge patient was instructed to continue his irbesartan as it was not causing his acute kidney injury. History of arrhythmias/PVCs: Patient has history of arrhythmias and PVCs and Holter monitor was placed recently. Patient was instructed to follow his assistant plant controller after the discharge. During hospital stay patient remained asymptomatic. History of GERD: Continued omeprazole History of anxiety: Continued Xanax at nighttime DVT prophylaxis: Mechanical and subcutaneous heparin CODE STATUS: Full code. Allergies: Coded Allergies: hydromorphone (From DILAUDID) (Mild, PT REPORTS DOES NOT LIKE THE WAY IT MAKES HIM FEEL 06/03/16) aspirin (325 MG / GI UPSET 06/01/16) Disposition Summary Disposition Principal Diagnosis: Post renal obstructive uropathy S/P bilateral stent placement Acute kidney injury Additional Diagnosis: Hypertension and hyperlipidemia History of diabetes History of GERD and anxiety Discharge Disposition: home or self care Discharge Instructions General Discharge Information Code Status: Full Code Patient's Diet: Diabetic diet Patient's Activity: Self-limited Follow-Up Instructions/Appts: Follow up with pcp in one week. Follow up with your urologist in one week for bilateral ureteroscopy on Monday or Monday. Follow up with your assistant plant controller in one week Please repeat BEP before going to pcp office. Medications at Discharge Discharge Medications: Stop taking the following medications: Cephalexin (Cephalexin) 250 MG CAPSULE ORAL EVERY SIX HOURS Days = 8 Continue taking these medications: Atorvastatin Calcium (Atorvastatin Calcium) 20 MG TABLET 0.5 Tablet ORAL DAILY Qty = 90 Comments: ONLY RECIEVED 10 MG Last Taken: 07/10/17 Time: 9AM Irbesartan (Irbesartan) 150 MG TABLET 1 Tablet ORAL DAILY Qty = 90 Comments: NOT TAKEN IN HOSPITAL Metformin HCl (Metformin HCl) 1,000 MG TABLET 1 Tablet ORAL TWICE DAILY Qty = 180 Comments: NOT TAKEN IN HOSPITAL Esomeprazole Magnesium (Nexium) 20 MG CAPSULE. 1 Capsule ORAL DAILY Comments: NOT TAKEN IN HOSPITAL Aspirin (Ecotrin*) 81 MG TABLET. 1 Tablet ORAL DAILY Comments: Last Taken:07/10/16 Time: 9AM Multivitamin (Daily Multiple Vitamin) 1 EACH TABLET 1 Tablet ORAL DAILY Comments: Last Taken: 07/10/17 Time: 9AM Flaxseed Oil (Flax Oil) 1,000 MG CAPSULE 1 Capsule ORAL DAILY Comments: NOT TAKEN IN HOSPITAL Insulin Detemir (Levemir Flextouch) 100 UNIT/ML (3 ML) INSULN.PEN 10 Units Inject into fatty tissue DAILY Instructions: TAKES AT 5 PM Comments: Last Taken: 07/10/17 Time: 9AM Alprazolam (Xanax) 0.5 MG TABLET 1 Tablet ORAL THREE TIMES A DAY NEEDED Comments: NOT GIVEN IN HOSPITAL Phenyleph/Pramoxin/Glycr/W.pet (Hemorrhoidal Cream) 0.25 %-1 % CREAM..G. 1 Application RECTALLY Every 4 hours Days = 30 Comments: NOT GIVEN IN HOSPITAL Copies To: Jany VALLES,Isiah Michael; Hawa VALLES,Joshua Michael
== END 2017-07-10 14:08 | DRG 669 ==
LOC: ERH 09:08 → PACUH 15:49 → 2NA 15:49 → ENRESERV 16:09 → ENTRNSPT 17:12 → EDTRNSPTSTS 17:34 → 2NA 17:49 → CMPTRNSPT 18:00 → 2NA 07-09 13:06 → ENPENDDIS 07-10 12:26 → 2NA 07-10 14:08
PROVIDERS: Emergency Medicine; Student in an Organized Health Care Education/Training Program
PROC: 0T787DZ Dilation of Bilateral Ureters with Intraluminal Device, Via Natural or Artificial Opening (ICD-10-PCS; principal; 2017-07-09)
PROC: 0TC78ZZ Extirpation of Matter from Left Ureter, Via Natural or Artificial Opening Endoscopic (ICD-10-PCS; 2017-07-09)
PROC: 0TC68ZZ Extirpation of Matter from Right Ureter, Via Natural or Artificial Opening Endoscopic (ICD-10-PCS; 2017-07-09)
PROC: 0T787DZ Dilation of Bilateral Ureters with Intraluminal Device, Via Natural or Artificial Opening (ICD-10-PCS; 2017-07-09)
DX: N13.2 Hydronephrosis with renal and ureteral calculous obstruction (principal); E11.9 Type 2 diabetes mellitus without complications; Z79.4 Long term (current) use of insulin
CPT/HCPCS: 2NASP; 36415; 36592; 74018; 74176; 81001; 82436; 87040; 87086; 93005; 93010; 96361; 96374; C2617; J0131; J0696; J1644; J2250; J3010; J3490

== ENCOUNTER → 2017-07-11 | Day surgery (SDC) | payer OTHER, MEDICARE ==
--- NOTE | 2017-07-13 09:17 | Operative Report ---
Operative/Inv Procedure Report Surgery Date: 07/11/17 Name of Procedure: right ureter ESWL. Fluoroscopy Pre-Operative Diagnosis: Right ureter stone with hydronephrosis and acute renal failure. Post-Operative Diagnosis: Same. Although improving, renal failure and hydronephrosis was not completely resolved. Estimated Blood Loss: none Surgeon/Oyster Picker: Ubaldo Shipley MD Anesthesia: moderate sedation Drains: None Specimens: None none Operative/Procedure Note Note: The patient was taken to the operating room and placed on the ESWL table in supine position. With the patient awake, timeout was performed to cofirm correct identity, procedure, laterality, anesthesia, and other pertinent susana- operative information. The patient was positioned over the ESWL table cut-out, overlying the dome of the shockwave generator, with on his right flank. C-arm fluroscopy, as well as renal US, was used to locate the stone, and evaluate the RIGHT kidney. The stone was visible on fluoroscopy at the right mid-ureter, measuring approximately 8 mm. Renal US confirmed unresolved mild hydronephrosis, with improving but again unresolved acute renal failure. Therefore I decided to leave the stent stent in place.. No other stone/tumor was visualized in the right kidney. After adequate anesthesia, the right ureter stone's position was optimized for Shockwave lithotrypsy using fluoroscopy in AP and oblique views. The E.S.W.L. was initiated at low power levels x 200 shocks. After noting the patient's tolerance to the shockwaves, the shock wave power level was quickly maximized. Toward the end of the procedure, the composition of the stone had changed significantly, indicating the pulverization of the ureter stone. A total of 3000 shockwaves were delivered to the stone in order to achieve adequate lithotrypsy. The patient tolerated both the procedure well, was awakened, and taken to recovery in satisfactory condition via stretcher. The pt will be dischared home with pain meds, diet orders, and intructions to catch fragments with straining the urine. The patient is to have follow-up renal ultrasound and KUB in 1-2 weeks, prior to follow-up visit in my office. Discharge Disposition: Same Day Admissions CC: Ubaldo Shipley MD
== END ==
LOC: STS 07:00
DX: N13.2 Hydronephrosis with renal and ureteral calculous obstruction (principal); N17.9 Acute kidney failure, unspecified; E11.9 Type 2 diabetes mellitus without complications; Z79.84 Long term (current) use of oral hypoglycemic drugs; I10 Essential (primary) hypertension
CPT/HCPCS: J2250

== ENCOUNTER → 2017-08-15 | Day surgery (SDC) | payer OTHER, MEDICARE ==
[~2017-08-15] VITALS: Ht 175.3 cm; Wt 103.4 kg
--- NOTE | 2017-08-15 10:33 | Operative Report ---
Operative/Inv Procedure Report Surgery Date: 08/15/17 Name of Procedure: LEFT RENAL ESWL, FLUROROSCOPY: CYSTO-BILATERAL STENT REMOVAL Pre-Operative Diagnosis: LEFT RENAL STONE: BILATERAL STENTS Post-Operative Diagnosis: SAME Estimated Blood Loss: scant Surgeon/Manager Risk: Ubaldo Shipley MD Anesthesia: moderate sedation Specimens: BILAT. STENTS Complications: NONE Operative/Procedure Note Note: The patient was taken to the operating room and placed on the ESWL table in supine position. Timeout was performed, with the patient awake, in order to confirm correct patients identity, procedure, laterality, anesthesia, and other pertinent perioperative information. After adequate anesthesia and antibiotics, the patient was then positioned so that the LEFT Flank was overlying the ESWL table's cut-out, above the concussion dome of the shockwave generator. Fluroscopy, as well as renal US, was used to locate the stone, and LEFT stent. Using fluoroscopy with AP, and oblique views, the position of the left renal stone was confirmed and optimized in the c-arm crosshairs. The stone , previously in the ureter, and manipulated into the left renal pelvis, was approximately 7 mm in size, and was visible on fluroscopy. Renal ultrasound was also performed on the left side, confirming the presence of the left stone, and no hydronephrosis, with normal parenchyma, and no solid tumor. Flurosocpy was used in an AP and oblique views to maximize the position of the stone for ESWL. After optimized positioning, ESWL was initiated at low power levels. After noting the patient's tolerance to the shockwaves, the power was maximized. The renal stone was noted to bounce/move with each shockwave with real-time renal US visualization. Toward the end of the procedure, the composition of the left stones had changed significantly, indicating the breaking of the left renal stone. A total of 2500 shockwaves were delivered to the stone. The patient was then placed in a frog-leg position, draped and prepped in the usual surgical fashion. A well lubricated, 22 [place] cystoscope sheath with 30 angle lens was inserted without difficulty. On entering the bladder the bladder was noted to be free of tumor, and free of stone. Both ureteral orifices were in their ortotopic positions. The left stent was seen in proper place protruding through the left ureter orifice. Using the alligator forcep, under direct visualization, the left stent was grasped. The cystoscope along with entire left stent was then gently removed without difficulty. All sponge, needle, and instrument count were correct at the end of the case. The 22 [place] cystoscope sheath with 30 angle lens was re-inserted without difficulty. On entering the bladder the bladder was noted to be free of tumor, and free of stone. The right stent was seen in proper place protruding through the right ureter orifice. Using the alligator forcep, under direct visualization, the right stent was grasped. The cystoscope along with entire left stent was then gently removed without difficulty. The patient the tolerated both the left cysto/stent removal, and left ESWL procedures well. The patient was awakened, then taken to recovery in satisfactory condition via stretcher. The pt. was dischared with pain meds, diet orders, and intructions to catch fragments with straining the urine. The patient was given requisition to have follow-up renal ultrasound and KUB in 2-4 weeks, prior to follow-up visit in my office. Discharge Disposition: Same Day Admissions CC: Ubaldo Shipley MD
== END ==
LOC: STS 01:45
DX: N20.0 Calculus of kidney (principal); N40.1 Benign prostatic hyperplasia with lower urinary tract symptoms; R39.14 Feeling of incomplete bladder emptying; R39.16 Straining to void; Z79.4 Long term (current) use of insulin